=== PATIENT | male | born 1935 | race Native Hawaiian/Other Pacific Islander ===

== ENCOUNTER 2018-06-01 16:07 | Inpatient (IN) | payer OTHER ==
[2018-06-01 16:22] VITALS: BMI 27.4
--- NOTE | 2018-06-01 17:00 | PDOC ---
History of Present Illness - General Chief Complaint: Altered Mental Status Stated Complaint: FOOT SELLING/WEAKNESS Time Seen by Provider: 06/01/18 16:55 History Source: Patient Exam Limitations: Clinical Condition - History of Present Illness Initial Comments: 83 yo M w a hx of ID w/stents 2005 bypass x 3, HTN, diverticulitis was BIBEMS to the ER because he has leg swelling and was reportedly combative and aggressive. The patient was approved to have a brain MRI as an outpatient next but the reports that he has been extra combative and aggressive and has not slept for the past week so the called up the PCP and he requested to have the patient sent to the ER to have the MRI now. The patient appears to be speaking to people that are not in the room at bedside. He is rambling to himself. The patient has no complaints at bedside. He does endorse leg swelling which he states is new. He denies leg pain, fevers, chills, infections. He denies chest pain, SOB, difficulty breathing, or any other complaints. PCP: Hansel Vergara PSH: triple bypass Allergies: Penicillins Past History - Past Medical History Allergies/Adverse Reactions: Allergies Allergy/AdvReac Type Severity Reaction Status Date / Time Penicillins Allergy Verified 06/01/18 16:22 Home Medications: Ambulatory Orders Amlodipine Besylate 5 mg PO DAILY 06/01/18 Aspirin [ASA -] 81 mg PO DAILY 06/01/18 Lisinopril 20 mg PO DAILY 06/01/18 Meclizine HCl 12.5 mg PO DAILY 06/01/18 Metoprolol Succinate 50 mg PO DAILY 06/01/18 Tramadol HCl 50 mg PO DAILY 06/01/18 Cardiac Disorders: Yes (mi w/stents 2005 bypass x 3) COPD: No Dementia: No GI Disorders: Yes (diverticulits) HTN: Yes - Suicide/Smoking/Psychosocial Hx Smoking History: Current every day smoker Information on smoking cessation initiated: No Review of Systems - Review of Systems Able to Perform ROS?: Yes Comments:: CONSTITUTIONAL: Absent: fever, no chills, no fatigue EYES: Absent: visual changes ENT: Absent: ear pain, no sore throat CARDIOVASCULAR: Absent: chest pain, no palpitations RESPIRATORY: Absent: cough, no SOB GI: Absent: abdominal pain, no nausea, no vomiting, no constipation, no diarrhea GENITOURINARY: Absent: dysuria, no frequency, no hematuria MUSKULOSKELETAL: Absent: back pain, no arthralgia, no myalgia SKIN: Absent: rash NEURO: Absent: headache *Physical Exam - Vital Signs Last Vital Signs Temp Pulse Resp BP Pulse Ox 97.9 F 77 16 116/71 100 06/01/18 16:19 06/01/18 16:19 06/01/18 16:19 06/01/18 16:19 06/01/18 16:19 - Physical Exam Comments: GENERAL: Well-appearing, well-nourished. No apparent distress. HEENT: Normocephalic, atraumatic. PERRL, EOM intact. CARDIOVASCULAR: Holosystolic crescendo/decrescendo murmur in the aortic regin. Regular rate and rhythm. PULMONARY: No evidence of respiratory distress. Lungs clear to auscultation bilaterally. No wheezing, rales or rhonchi. ABDOMEN: Soft, non-distended, non-tender. EXTREMITIES: Normal ROM in all four extremities. 2 + pitting edema in both legs 2 cm above the ankle. SKIN: Warm, dry. No rash NEUROLOGICAL: No focal neurological deficits. ED Treatment Course - LABORATORY CBC & Chemistry Diagram: 06/01/18 17:45 06/01/18 17:45 Medical Decision Making - Medical Decision Making 83 yo M w a hx of ID w/stents 2005 bypass x 3, HTN, diverticulitis was BIBEMS to the ER because he has leg swelling and was reportedly combative and aggressive. The patient was approved to have a brain MRI as an outpatient next but the reports that he has been extra combative and aggressive and has not slept for the past week so the called up the PCP and he requested to have the patient sent to the ER to have the MRI now. The patient appears to be speaking to people that are not in the room at bedside. He is rambling to himself. The patient has no complaints at bedside. He does endorse leg swelling which he states is new. He denies leg pain, fevers, chills, infections. He denies chest pain, SOB, difficulty breathing, or any other complaints. VS: WNL DDx IBNLT: Heart failure, ACS/Mi, Arrhythmia, electrolyte/metabolic disturbance Plan: Labs, urine, ekg, cxr, head ct, re-assess. Patient will be admitted for altered mental status after ED workup. ED workup negative. I suspect the leg swelling is secondary to patient's amlodipine as BNP is negative. Will admit for delirium and AMS. *DC/Admit/Observation/Transfer Diagnosis at time of Disposition: Delirium, Leg swelling, Altered mental status - Discharge Dispostion Condition at time of disposition: Stable Decision to Admit order: Yes - Referrals - Patient Instructions - Post Discharge Activity
[2018-06-01 17:52] LABS: BASO % 0.6 % (0-2.0); EOS % 5.2 % (0-4.5); HEMATOCRIT 41.8 % (35.4-49); HEMOGLOBIN 14.1 GM/dL (11.7-16.9); MCH 29.8 pg (25.7-33.7); MCHC 33.8 g/dl (32.0-35.9); MEAN CELL VOLUME 88.3 fl (80-96); MEAN PLT VOLUME 7.4 fl (7.5-11.1); MONO % 9.8 % (3.8-10.2); NEUT % 64.4 % (42.8-82.8); PLATELET COUNT 250 K/MM3 (134-434); RBC 4.73 M/mm3 (4.00-5.60); RDW 13.1 % (11.9-15.9); WHITE BLOOD COUNT 7.2 K/mm3 (4.0-10.0)
[2018-06-01 18:19] LABS: ALBUMIN 3.7 g/dl (3.4-5.0); ALK PHOS 79 U/L (45-117); ANION GAP 6 MMOL/L (8-16); BILIRUBIN,TOTAL 1.2 mg/dL (0.2-1); BLOOD UREA NITROGEN 19 mg/dL (7-18); CHLORIDE 108 mmol/L (98-107); CO2 28 mmol/L (21-32); CREATININE 0.9 mg/dL (0.55-1.3); GLUCOSE,RANDOM 102 mg/dL (74-106); MAGNESIUM 2.3 mg/dL (1.8-2.4); N-TERMINAL BNP 65.6 pg/ml (5-450); POTASSIUM 3.8 mmol/L (3.5-5.1); SGOT/AST 23 U/L (15-37); SGPT/ALT 20 U/L (13-61); SODIUM 142 mmol/L (136-145); TOT PROT 7.4 g/dl (6.4-8.2)
[2018-06-01 18:23] LABS: INR 1.07 (0.83-1.09); PROTHROMBIN TIME (PATIENT) 12.6 SEC (9.7-13.0)
--- NOTE | 2018-06-01 19:10 | PDOC ---
Documentation entered by Sharda Lester SCRIBE, acting as scribe for Kanwal Munson MD. Kanwal Munson MD: This documentation has been prepared by the Trevon major Adrianna, SCRIBE, under my direction and personally reviewed by me in its entirety. I confirm that the documentation accurately reflects all work, treatment, procedures, and medical decision making performed by me. Attending Attestation - Resident Resident Name: Quinn Reece - ED Attending Attestation I have performed the following: I have examined & evaluated the patient, The case was reviewed & discussed with the resident, I agree w/resident's findings & plan, Exceptions are as noted - HPI HPI: 83 year old male, with a significant PMH of [place] (s/p stents in 2004, with triple bypass), HTN, diverticulitis, who presents to the emergency department BIBEMS for LE swelling and combative/aggressive behavior. As per patients , he was supposed to obtain outpatient brain MRI in one week, but notes he became increasingly aggressive and combative. She also notes a decrease in his sleep schedule. When patients spoke to his PCP, Dr. Vergara advised he come to the ED for MRI. At bedside, patient is speaking to people who are not present , and is rambling words to himself. He does endorse new onset LE swelling, but has no other complaints. The patient denies chest pain, shortness of breath, headache and dizziness. Denies fever, chills, nausea, vomit, diarrhea and constipation. Denies dysuria, frequency, urgency and hematuria. Allergies: Penicillins Past surgical history: Triple bypass Social history: No reported PCP: Dr. Hansel Vergara 06/01/18 18:50 06/01/18 19:33 - Physicial Exam PE: 06/01/18 19:44 awake alert dry mucous membranes. lungs clear bialterally heart rrr no mrg abd soft nt nd. nuero moves all four ext. alert oriented x 1. speech clear disoriented. - Medical Decision Making 06/01/18 19:07 83 yo male with h/o cad stents, demenita here for AMS and hallucinations, sent by pcp dr chase. per at bedside pt has been hallucinating. combative and more altered. was told to bring him to eD by pcp. on exam pt actively hallucinating. lungs clear heartrrr. leg with bilat edema. differential AMS, infeciton such as Uti, pna, electrolyte acs, chf, cva. plan ct head, cxr ua labs ekg. oswaldo require admission for delirium on dementia. tried to call pt pcp dr. chase, . office closed no answering service. 06/01/18 19:41 EXAM#: TYPE/EXAM: RESULT: [id number] CT/HEAD CT WITHOUT CONTRAST Cranial CT without contrast Clinical information given neuro/altered mental status/ headache Impression: No CT evidence of acute intracranial pathology. Reported By: Leonardo Rome MD 06/01/18 19:14 06/01/18 19:[address] head negative. awaiting urine. ekg will admit for delirium. Heart Score/ECG Review #1 General ECG Interpretation: Sinus Rhythm, Normal Rate (80), Normal Intervals, No acute ischemic changes
[2018-06-01 22:24] LABS: PH,URINE 5.5 (5.0-8.0); URINE APPEARANCE CLEAR; URINE BILIRUBIN NEGATIVE (NEGATIVE); URINE COLOR DK YELLOW; URINE GLUCOSE (UA) NEGATIVE (NEGATIVE); URINE KETONE TRACE (NEGATIVE); URINE LEUK ESTERASE NEGATIVE (NEGATIVE); URINE NITRITE NEGATIVE (NEGATIVE); URINE PROTEIN NEGATIVE (NEGATIVE)
[2018-06-01] MEDS ORDERED: HALOPERIDOL LACTATE 5 MG/ML IM ONE ×2 (22:57→23:15)
--- NOTE | 2018-06-02 00:04 | HP ---
Addendum entered and electronically signed by Pepito Guy, RESIDENT 06/02/18 06 :10: Condition 10 called overhead as pt became combative with nursing staff. Pt given Benadryl 50 mg, Ativan 2 mg and Haldol 5 mg. Original Note: <Pepito Guy - Last Filed: 06/02/18 06:08> CHIEF COMPLAINT: AMS, Hallucinations Per Spouse PCP: Dr Vergara HISTORY OF PRESENT ILLNESS: Pt is an 83 y/o gentleman with a significant past medical history of CAD s/p CABG (tipple bypass) (2002), PR w/ stents, HTN, diverticulitis who was BIBA to [facility] due to increasing altered mental status and combativeness. Per at bedside and daughter in law(discussed over phone), pt has been exhibiting a rapid mental decline for approximately 5 weeks. endorses that 5 weeks ago, pt was admitted to [facility] due to diverticulitis. Pt was discharged on Cipro and Metronidazole. Furthermore, pt has had decreased PO intake for the last 3-4 days. Additionally, pt has been hallucinating for the past few weeks, seeing " children in the house" as well as having conversations with people who aren't there. Spouse also states that pt has had increased lower extremity swelling for the past 5 days. Denies chest pain, sob, nausea/vomiting, or urinary issues. Spouse states that pt's two brothers recently this year and this has made pt depressed. PMH as above Social Hx- Former Smoker use to smoke 2 packs/day for 30 years quit 2002. Denies alcohol use. Allergic to Penicllin ER course was notable for: (1) Negative Leuk Esterase (2) Head CT Neg HOME MEDICATIONS: Home Medications Medication Instructions Recorded Amlodipine Besylate 5 mg PO DAILY 06/01/18 Aspirin [ASA -] 81 mg PO DAILY 06/01/18 Lisinopril 20 mg PO DAILY 06/01/18 Meclizine HCl 12.5 mg PO DAILY 06/01/18 Metoprolol Succinate 50 mg PO DAILY 06/01/18 Tramadol HCl 50 mg PO DAILY 06/01/18 REVIEW OF SYSTEMS Unable to obtain 2/2 AMS PHYSICAL EXAMINATION Vital Signs - 24 hr 06/01/18 16:19 Temperature 97.9 F Pulse Rate 77 Respiratory 16 Rate Blood Pressure 116/71 O2 Sat by Pulse 100 Oximetry (%) GENERAL: AAOx1 HEAD: AT/NC EYES: Left eye Corneal Clouding. EARS, NOSE, THROAT: Dry mucous membranes NECK: Supple, No JVD LUNGS: CTAB HEART: 2/6 DASHA. ABDOMEN: NDNT No HSM No guarding or rigidity LOWER EXTREMITIES: B/L lower extremity edema SKIN: No rashes or lesions appreciated Laboratory Results - last 24 hr 06/01/18 06/01/18 06/01/18 17:45 17:45 17:45 WBC 7.2 RBC 4.73 Hgb 14.1 Hct 41.8 MCV 88.3 MCH 29.8 MCHC 33.8 RDW 13.1 Plt Count 250 MPV 7.4 L Absolute Neuts (auto) 4.6 Neutrophils % 64.4 Lymphocytes % 20.0 Monocytes % 9.8 Eosinophils % 5.2 H Basophils % 0.6 Nucleated RBC % 0 PT with INR 12.60 INR 1.07 Sodium 142 Potassium 3.8 Chloride 108 H Carbon Dioxide 28 Anion Gap 6 L BUN 19 H Creatinine 0.9 Creat Clearance w eGFR 80.99 Random Glucose 102 Calcium 9.0 Magnesium 2.3 Total Bilirubin 1.2 H AST 23 ALT 20 Alkaline Phosphatase 79 Creatine Kinase 149 Troponin I < 0.02 B-Natriuretic Peptide 65.6 Total Protein 7.4 Albumin 3.7 Urine Color Urine Appearance Urine pH Ur Specific [place] Urine Protein Urine Glucose (UA) Urine Ketones Urine Blood Urine Nitrite Urine Bilirubin Urine Urobilinogen Ur Leukocyte Esterase 06/01/18 21:42 WBC RBC Hgb Hct MCV MCH MCHC RDW Plt Count MPV Absolute Neuts (auto) Neutrophils % Lymphocytes % Monocytes % Eosinophils % Basophils % Nucleated RBC % PT with INR INR Sodium Potassium Chloride Carbon Dioxide Anion Gap BUN Creatinine Creat Clearance w eGFR Random Glucose Calcium Magnesium Total Bilirubin AST ALT Alkaline Phosphatase Creatine Kinase Troponin I B-Natriuretic Peptide Total Protein Albumin Urine Color Dk yellow Urine Appearance Clear Urine pH 5.5 Ur Specific [place] 1.025 Urine Protein Negative Urine Glucose (UA) Negative Urine Ketones Trace H Urine Blood Negative Urine Nitrite Negative Urine Bilirubin Negative Urine Urobilinogen 1.0 Ur Leukocyte Esterase Negative ASSESSMENT/PLAN: Pt is an 83 y/o gentleman with a significant past medical history of CAD s/p CABG (tipple bypass) (2002), PR w/ stents, HTN, diverticulitis who was BIBA to [facility] due to increasing altered mental status and combativeness. #AMS w/ Hallucinations -Spouse denies any recent infections except Diverticulitis 5 weeks ago. Was placed on Metronidazole and Cipro. -Head CT Negative -Urinalysis negative for L.E. WBC WNL -Afebrile -Check B12, TSH, Folate, Thiamine, RPR. -Was recently placed on Risperidone past day. Will increase to 1 MG BID -Psych Consult #LE edema - Will hold home amlodipine -May increase PATIENCE-i f BP uncontrolled -Will order echo to assess EF and cardiac function -BNP WNL -Venous Duplex ordered on left leg as noticeably more swollen than right. -B/L knee xrays as pt c/o severe pain b/l. # HTN Will hold amlodipine continue lisinopril #CAD -C/w ASA 83 Daily # Chronic Dizziness -On home meclizine # Possible Urinary Retention -Can bladder scan. -Alwnrriu-bh-icu endorses dribbling in pt and inadequate voiding #Eosinophilia -Monitor; followup OP FEN LR@75cc/hr Monitor Electrolytes NPO DVT ppx HEPSQ BID given age and weight Dispo Med-Surg Visit type - Emergency Visit Emergency Visit: Yes ED Registration Date: 06/01/18 Care time: The patient presented to the Emergency Department on the above date and was hospitalized for further evaluation of their emergent condition. - New Patient This patient is new to me today: Yes Date on this admission: 06/02/18 - Critical Care Critical Care patient: No <Marc Carrera - Last Filed: 06/15/18 01:03> Seen and examined; agree with resident note aside from what is supplemented in my own documentation. Present for all essential parts and verified all vital aspects of history and exam.
--- NOTE | 2018-06-02 00:34 | PN ---
Teaching Attending Note Name of Resident: Pepito Guy ATTENDING PHYSICIAN STATEMENT I saw and evaluated the patient. I reviewed the resident's note and discussed the case with the resident. I agree with the resident's findings and plan as documented. SUBJECTIVE: Seen and examined; please refer to resident note for further historical information. Briefly, this is an 83 y/o male presenting to the hospital with AMS. He has been increasingly combative at home for the past month (family states since discharged from [facility] >5 wks ago) and has been having aggression, hallucinations, and confusion. He has had some intermittent urinary retention and dribbling. His PCP started him on risperidone 0.5 BID at home several days ago but the symptoms continued to persist so he was brought in to the ER. His is bedside and she states she cannot take care of him anymore so she brought him in. He has not been eating or sleeping well. He cannot provide an accurate history and is confused. notes some pedal edema but no SOB, etc. No s/s CHF and he is on amlodipine. Did have some falls at home; no evidence of trauma but did mention knee pain (XR pending). PCP had him scheduled for MRI next week. 10 sys ROS done and negative aside from HPI PMH, PSH, FH, SH reviewed Home Medications Medication Instructions Recorded Amlodipine Besylate 5 mg PO DAILY 06/01/18 Aspirin [ASA -] 81 mg PO DAILY 06/01/18 Lisinopril 20 mg PO DAILY 06/01/18 Meclizine HCl 12.5 mg PO DAILY 06/01/18 Metoprolol Succinate 50 mg PO DAILY 06/01/18 Tramadol HCl 50 mg PO DAILY 06/01/18 Risperidone 0.5 BID 06/02/18 OBJECTIVE: VS, labs, imaging reviewed NAD, AAO, resting in bed comfortably, confused. R-cataract with near opaque appearance, NC AT EOMI RRR s1/2 no mgr Responds and follows directions but confused, AAOx1 NT ND +BS; no suprapubic tenderness CN2-12 wnl, no fnd, moves all 4 extremities, sensorium appears intact CT head negative EKG reviewed ASSESSMENT AND PLAN: Patient presents for increasing delirium; cannot take care of him anymore at home. 1) AMS with dementia, hallucinations, etc. -This has been a slow decline over weeks to months and doesn't appear acute; for social issues will consult social work and case management. He will likely need placement. -Check B12, TSH, Folate, Thiamine, RPR. -Neuro checks, seizure precautions -Increase risperidone to 1 BID and consult psych for titration. Monitor QTc. -Ensure no urinary retention; hold tramadol. -Consider MRI that was planned for OP while inpatient 2) LE edema -Check nonurgent echo, BNP negative. Holding amlodipine; if BP high can titrate PATIENCE up 3) HTN -Hold amlodipine continue lisinopril 4) CAD s/p PCI, CABG -Asx; continue home medications 5) Chronic Dizziness -On home meclizine 6) Knee Pain with falls -Negative head CT; films of knee pending -PRN APAP 7) Concern of urinary retention -Can bladder scan 8) Eosinophilia -Monitor; followup OP 9) Elevated bili -Very mild; trend CBC and fractionate. Consider medication causes. If persists or worsens consider RUQ imaging.
[2018-06-02] MEDS ORDERED: risperiDONE 0.5 MG TABLET (FP) ONE (00:35)
[2018-06-02] MEDS: LACTATED RINGERS SOLUTION 1,000 ML/1,000 ML INFUS.BAG IV SCH ×2 (00:43→18:09)
[2018-06-02] MEDS: risperiDONE 1 MG TABLET (FP) PO SCH ×3 (00:43→13:27)
[2018-06-02] MEDS ORDERED: ACETAMINOPHEN 325 MG TABLET (FP) PO ONE (01:22)
[2018-06-02] MEDS ORDERED: HALOPERIDOL LACTATE 5 MG/ML IM ONE (03:23)
[2018-06-02] MEDS ORDERED: LORazepam 2 MG/ML SDV VIAL IVPUSH ONE (03:23)
[2018-06-02] MEDS ORDERED: PNEUMOC 13-VAL CONJ-DIP CRM/PF 0.5 ML DISP.SYRIN IM ONE (04:43)
[2018-06-02] MEDS ORDERED: PNEUMOCOCCAL 23 VACCINE 0.5 ML VIAL IM ONE (06:15)
[2018-06-02 07:08] LABS: BASO % 0.8 % (0-2.0); EOS % 4.5 % (0-4.5); HEMATOCRIT 39.7 % (35.4-49); HEMOGLOBIN 13.5 GM/dL (11.7-16.9); LYMPH % 17.8 % (8-40); MCH 29.4 pg (25.7-33.7); MCHC 34.1 g/dl (32.0-35.9); MEAN CELL VOLUME 86.3 fl (80-96); MEAN PLT VOLUME 7.6 fl (7.5-11.1); MONO % 8.9 % (3.8-10.2); PLATELET COUNT 239 K/MM3 (134-434); RDW 13.3 % (11.9-15.9); WHITE BLOOD COUNT 7.5 K/mm3 (4.0-10.0)
[2018-06-02 07:28] LABS: INR 1.08 (0.83-1.09); PROTHROMBIN TIME (PATIENT) 12.7 SEC (9.7-13.0)
[2018-06-02 07:31] LABS: ACTIVATED PTT 34.6 SECONDS (25.2-36.5)
[2018-06-02] MEDS: HEPARIN NA (PORCINE) 5,000 UNITS/ML 1ML VIAL SQ SCH ×2 (10:25→23:00)
--- NOTE | 2018-06-02 10:46 | EKG ---
Test Reason : Blood Pressure : / mmHG Vent. Rate : 080 BPM Atrial Rate : 080 BPM P-R Int : 174 ms QRS Dur : 086 ms QT Int : 382 ms P-R-T Axes : 060 -58 044 degrees QTc Int : 440 ms NORMAL SINUS RHYTHM LEFT AXIS DEVIATION NONSPECIFIC T WAVE ABNORMALITY ABNORMAL ECG NO PREVIOUS ECGS AVAILABLE Confirmed by GINNA WOLFE MD ([id number]) on 06/02/2018 10:46:09 AM Referred By: Confirmed By:GINNA WOLFE MD
[2018-06-02 11:17] LABS: BILIRUBIN,DIRECT 0.3 mg/dL (0.0-0.2)
[2018-06-02] MEDS: ASPIRIN 81 MG CHEWABLE TABLETS PO SCH ×2 (11:26→13:27)
[2018-06-02] MEDS: MECLIZINE HCL 12.5 MG TABLET PO SCH ×2 (11:26→13:27)
[2018-06-02] MEDS: LISINOPRIL 20 MG TABLET (FP) PO SCH ×2 (11:26→13:27)
[2018-06-02 11:55] LABS: ALBUMIN 3.3 g/dl (3.4-5.0); ALK PHOS 75 U/L (45-117); ANION GAP 10 MMOL/L (8-16); BILIRUBIN,TOTAL 1.6 mg/dL (0.2-1); BLOOD UREA NITROGEN 13 mg/dL (7-18); CALCIUM 8.6 mg/dL (8.5-10.1); CHLORIDE 109 mmol/L (98-107); CO2 23 mmol/L (21-32); CREATININE 0.7 mg/dL (0.55-1.3); GLUCOSE,RANDOM 103 mg/dL (74-106); MAGNESIUM 1.8 mg/dL (1.8-2.4); PHOSPHOROUS 1.7 mg/dL (2.5-4.9); POTASSIUM 3.4 mmol/L (3.5-5.1); SGOT/AST 32 U/L (15-37); SGPT/ALT 18 U/L (13-61); SODIUM 143 mmol/L (136-145); TOT PROT 6.8 g/dl (6.4-8.2)
[2018-06-02] MEDS ORDERED: POTASSIUM CHLORIDE TABS 20 MEQ TABLET.ER (FP) PO ONE (12:20)
[2018-06-02] MEDS ORDERED: PT OWN MED DRAWER 7, Y5N ONE ×3 (13:22→21:52)
--- NOTE | 2018-06-02 15:34 | CON.PSY ---
Psychiatry Consult Chief Complaint: 83 manuel old male with ahistory of ? Dementia ALZ vs Fronto temporal admitted wuith acute onset of Visual hallucinations and aggressive behaviour. Patient was given Risperidal and SEroquel by PMD. Spoke to who reports this all started about a week ago. Patient has no history of Psychiatric illness. Symptoms: reports: Aggressivity, Amnesic Episodes, Hallucinations - Previous Psychiatric Treatment Outpatient: None Inpatient: None - Previous Substance Abuse Treatment Outpatient: None Inpatient: None - Current Medications Current Medications: Active Medications Aspirin (Asa -) 81 mg PO DAILY [facility] Last Admin: 06/02/18 13:27 Dose: 81 mg Heparin Sodium (Porcine) (Heparin -) 5,000 unit SQ BID [facility] Last Admin: 06/02/18 10:25 Dose: 5,000 unit Lactated Ringer's (Lactated Ringers Solution) 1,000 ml in 1,000 mls @ 75 mls/ hr IV ASDIR [facility] Last Admin: 06/02/18 00:43 Dose: 75 mls/hr Lisinopril (Prinivil) 20 mg PO DAILY [facility] Last Admin: 06/02/18 13:27 Dose: 20 mg Meclizine HCl (Antivert -) 12.5 mg PO DAILY [facility] Last Admin: 06/02/18 13:27 Dose: 12.5 mg Metoprolol Succinate (Toprol Xl -) 50 mg PO DAILY [facility] Last Admin: 06/02/18 13:27 Dose: 50 mg Olanzapine (Zyprexa -) 10 mg PO BID [facility] - Allergies Allergies: Allergies Allergy/AdvReac Type Severity Reaction Status Date / Time Penicillins Allergy Verified 06/01/18 16:22 - Current Living Status Usual Living Arrangement: With Spouse - Current Mental Status Evaluation Appearance: Disheveled Attitude: Belligerent - Affect Affect: Constrictive Appropriateness: Not Appropriate - Mood Mood: Irritable - Speech/Language Expressive: Delayed - Psychomotor Activity Psychomotor Activity: Hyperactive - Thought Process Thought Process: Loosening of Associations - Thought Content Hallucinations: Present Type: Visual Delusions: Absent - Self Perception Self Perception: Depersonalization - Cognition Attention: Diminished Memory, Immediate Recall: Impaired Memory, Short Term: 0/3 Memory, Remote with Promptin/3 - Concentration Serial Sevens Intact: No Simple Calculations Intact: No - Abstraction Proverb Interpretation: Intact, Impaired Judgement: Severely Impaired - Insight Insight: Impaired - Impulse Control Impulse Control: Severly Impaired - Suicidal Ideation Suicidal Ideation: No - Homicidal Ideation Homicidal Ideation: No Assessment/Plan 1) Neuro consult. 2) d/c risperidal. 3) Zyprexa 10 mg po bid for aggression and hallucinations.
--- NOTE | 2018-06-02 16:58 | PN ---
Physical Exam: SUBJECTIVE: Patient seen and examined at bedside this morning. Condition 10 called earlier this morning as patient was becoming violent and combative to nursing staff. Patient was given Haldol, Ativan and Benadryl. Patient remained lethargic, and mumbling to himself. OBJECTIVE: Vital Signs Temperature 98 F 06/02/18 14:32 Pulse Rate 57 L 06/02/18 14:32 Respiratory Rate 20 06/02/18 14:32 Blood Pressure 115/59 L 06/02/18 14:32 O2 Sat by Pulse Oximetry (%) 98 06/02/18 09:00 GENERAL: Patient is lethargic, eyes remain closed, mumbling incomprehensibly, not following commands. LUNGS: Breath sounds equal, clear to auscultation bilaterally. HEART: Regular rate and rhythm, S1, S2 without murmur, rub or gallop. ABDOMEN: Soft, nontender, nondistended, normoactive bowel sounds. EXTREMITIES: 2+ pulses, warm, well-perfused, no edema. NEUROLOGICAL: Patient is lethargic, eyes remain closed, mumbling incomprehensibly, unresponsive to voice, not following commands. SKIN: Warm, dry, normal turgor, no rashes or lesions noted Laboratory Results - last 24 hr 06/01/18 06/01/18 06/01/18 17:45 17:45 17:45 WBC 7.2 RBC 4.73 Hgb 14.1 Hct 41.8 MCV 88.3 MCH 29.8 MCHC 33.8 RDW 13.1 Plt Count 250 MPV 7.4 L Absolute Neuts (auto) 4.6 Neutrophils % 64.4 Lymphocytes % 20.0 Monocytes % 9.8 Eosinophils % 5.2 H Basophils % 0.6 Nucleated RBC % 0 ESR PT with INR 12.60 INR 1.07 PTT (Actin FS) Sodium 142 Potassium 3.8 Chloride 108 H Carbon Dioxide 28 Anion Gap 6 L BUN 19 H Creatinine 0.9 Creat Clearance w eGFR 80.99 Random Glucose 102 Calcium 9.0 Phosphorus Magnesium 2.3 Total Bilirubin 1.2 H Direct Bilirubin AST 23 ALT 20 Alkaline Phosphatase 79 Creatine Kinase 149 Troponin I < 0.02 C-Reactive Protein B-Natriuretic Peptide 65.6 Total Protein 7.4 Albumin 3.7 Vitamin B12 Serum Folate TSH Urine Color Urine Appearance Urine pH Ur Specific [place] Urine Protein Urine Glucose (UA) Urine Ketones Urine Blood Urine Nitrite Urine Bilirubin Urine Urobilinogen Ur Leukocyte Esterase RPR Titer 06/01/18 06/02/18 06/02/18 21:42 01:36 06:00 WBC 7.5 RBC 4.60 Hgb 13.5 Hct 39.7 MCV 86.3 MCH 29.4 MCHC 34.1 RDW 13.3 Plt Count 239 MPV 7.6 Absolute Neuts (auto) 5.1 Neutrophils % 68.0 Lymphocytes % 17.8 Monocytes % 8.9 Eosinophils % 4.5 Basophils % 0.8 Nucleated RBC % 0 ESR 13 PT with INR INR PTT (Actin FS) Sodium Potassium Chloride Carbon Dioxide Anion Gap BUN Creatinine Creat Clearance w eGFR Random Glucose Calcium Phosphorus Magnesium Total Bilirubin Direct Bilirubin AST ALT Alkaline Phosphatase Creatine Kinase Troponin I C-Reactive Protein B-Natriuretic Peptide Total Protein Albumin Vitamin B12 Serum Folate TSH Urine Color Dk yellow Urine Appearance Clear Urine pH 5.5 Ur Specific [place] 1.025 Urine Protein Negative Urine Glucose (UA) Negative Urine Ketones Trace H Urine Blood Negative Urine Nitrite Negative Urine Bilirubin Negative Urine Urobilinogen 1.0 Ur Leukocyte Esterase Negative RPR Titer 06/02/18 06/02/18 06/02/18 06:00 06:00 06:00 WBC RBC Hgb Hct MCV MCH MCHC RDW Plt Count MPV Absolute Neuts (auto) Neutrophils % Lymphocytes % Monocytes % Eosinophils % Basophils % Nucleated RBC % ESR PT with INR 12.70 INR 1.08 PTT (Actin FS) 34.6 Sodium 143 Potassium 3.4 L Chloride 109 H Carbon Dioxide 23 Anion Gap 10 BUN 13 Creatinine 0.7 Creat Clearance w eGFR 108.24 Random Glucose 103 Calcium 8.6 Phosphorus 1.7 L Magnesium 1.8 Total Bilirubin 1.6 H Direct Bilirubin 0.3 H AST 32 ALT 18 Alkaline Phosphatase 75 Creatine Kinase Troponin I C-Reactive Protein 0.4 H B-Natriuretic Peptide Total Protein 6.8 Albumin 3.3 L Vitamin B12 481 Serum Folate 19 H TSH 0.56 Urine Color Urine Appearance Urine pH Ur Specific [place] Urine Protein Urine Glucose (UA) Urine Ketones Urine Blood Urine Nitrite Urine Bilirubin Urine Urobilinogen Ur Leukocyte Esterase RPR Titer 06/02/18 06:00 WBC RBC Hgb Hct MCV MCH MCHC RDW Plt Count MPV Absolute Neuts (auto) Neutrophils % Lymphocytes % Monocytes % Eosinophils % Basophils % Nucleated RBC % ESR PT with INR INR PTT (Actin FS) Sodium Potassium Chloride Carbon Dioxide Anion Gap BUN Creatinine Creat Clearance w eGFR Random Glucose Calcium Phosphorus Magnesium Total Bilirubin Direct Bilirubin AST ALT Alkaline Phosphatase Creatine Kinase Troponin I C-Reactive Protein B-Natriuretic Peptide Total Protein Albumin Vitamin B12 Serum Folate TSH Urine Color Urine Appearance Urine pH Ur Specific [place] Urine Protein Urine Glucose (UA) Urine Ketones Urine Blood Urine Nitrite Urine Bilirubin Urine Urobilinogen Ur Leukocyte Esterase RPR Titer Nonreactive Active Medications Generic Name Dose Route Start Last Admin Trade Name Pedrito PRN Reason Stop Dose Admin Aspirin 81 mg 06/02/18 10:00 06/02/18 13:27 Asa - PO 81 mg DAILY THIAGO Administration Heparin Sodium (Porcine) 5,000 unit 06/02/18 10:00 06/02/18 10:25 Heparin - SQ 5,000 unit BID THIAGO Administration Lactated Ringer's 1,000 ml in 1,000 mls @ 75 mls/hr 06/02/18 00:30 06/02/18 00:43 Lactated Ringers Solution IV 75 mls/hr ASDIR THIAGO Administration Lisinopril 20 mg 06/02/18 10:00 06/02/18 13:27 Prinivil PO 20 mg DAILY THIAGO Administration Meclizine HCl 12.5 mg 06/02/18 10:00 06/02/18 13:27 Antivert - PO 12.5 mg DAILY THIAGO Administration Metoprolol Succinate 50 mg 06/02/18 10:00 06/02/18 13:27 Toprol Xl - PO 50 mg DAILY THIAGO Administration Olanzapine 10 mg 06/02/18 22:00 Zyprexa - PO BID THIAGO ASSESSMENT/PLAN: Patient is an 83 year old male with past medical history of CAD s/p CABG (2002) , [place] with stents, HTN, diverticulitis, who was brought in by due to worsening combativeness, confusion and hallucinations that started 1 week ago. #Altered mental status -Head CT showed no acute intracranial pathology -MRI of the brain ordered -Neurology (Dr. Ladd) consulted. -Psychiatry (Dr. Mao) consulted. Recommendations appreciated -Discontinue Risperidal -Zyprexa 10mg PO BID for aggression and hallucinations. #LE edema: resolved -Amlodipine held. BP currently controlled -LE US negative for DVT -Knee xray: degenerative changes, no acute process #HTN -Continue Lisinopril 20mg daily -Amlodipine on hold #CAD -Continue ASA 81 mg daily #BPPV -Continue home Meclizine #FEN -IV LR @75cc/hr -Hypokalemia, repleted -Routine bmp monitoring -Sodium controlled diet #Prophylaxis -Heparin 5000units sq BID #Disposition -full code - feels unsafe with at home, and would want placement. Visit type - Emergency Visit Emergency Visit: Yes ED Registration Date: 06/01/18 Care time: The patient presented to the Emergency Department on the above date and was hospitalized for further evaluation of their emergent condition. - New Patient This patient is new to me today: Yes Date on this admission: 06/02/18 - Critical Care Critical Care patient: No
--- NOTE | 2018-06-02 18:46 | PN ---
Teaching Attending Note Name of Resident: Gina De La Cruz ATTENDING PHYSICIAN STATEMENT I saw and evaluated the patient. I reviewed the resident's note and discussed the case with the resident. I agree with the resident's findings and plan as documented. SUBJECTIVE: Patient awake, confused. OBJECTIVE: Vital Signs Period Temp Pulse Resp BP Sys/Schneider Pulse Ox Last 24 Hr 98 F-98.4 F 57-78 20-20 115-134/59-76 98 HEART: S1S2, RRR LUNGS: Clear ABDOMEN: Soft, non-distended, normal BS EXTREMITIES: Trace edema Laboratory Results - last 24 hr 06/01/18 06/02/18 06/02/18 21:42 01:36 06:00 WBC 7.5 RBC 4.60 Hgb 13.5 Hct 39.7 MCV 86.3 MCH 29.4 MCHC 34.1 RDW 13.3 Plt Count 239 MPV 7.6 Absolute Neuts (auto) 5.1 Neutrophils % 68.0 Lymphocytes % 17.8 Monocytes % 8.9 Eosinophils % 4.5 Basophils % 0.8 Nucleated RBC % 0 ESR 13 PT with INR INR PTT (Actin FS) Sodium Potassium Chloride Carbon Dioxide Anion Gap BUN Creatinine Creat Clearance w eGFR Random Glucose Calcium Phosphorus Magnesium Total Bilirubin Direct Bilirubin AST ALT Alkaline Phosphatase C-Reactive Protein Total Protein Albumin Vitamin B12 Serum Folate TSH Urine Color Dk yellow Urine Appearance Clear Urine pH 5.5 Ur Specific [place] 1.025 Urine Protein Negative Urine Glucose (UA) Negative Urine Ketones Trace H Urine Blood Negative Urine Nitrite Negative Urine Bilirubin Negative Urine Urobilinogen 1.0 Ur Leukocyte Esterase Negative RPR Titer 06/02/18 06/02/18 06/02/18 06:00 06:00 06:00 WBC RBC Hgb Hct MCV MCH MCHC RDW Plt Count MPV Absolute Neuts (auto) Neutrophils % Lymphocytes % Monocytes % Eosinophils % Basophils % Nucleated RBC % ESR PT with INR 12.70 INR 1.08 PTT (Actin FS) 34.6 Sodium 143 Potassium 3.4 L Chloride 109 H Carbon Dioxide 23 Anion Gap 10 BUN 13 Creatinine 0.7 Creat Clearance w eGFR 108.24 Random Glucose 103 Calcium 8.6 Phosphorus 1.7 L Magnesium 1.8 Total Bilirubin 1.6 H Direct Bilirubin 0.3 H AST 32 ALT 18 Alkaline Phosphatase 75 C-Reactive Protein 0.4 H Total Protein 6.8 Albumin 3.3 L Vitamin B12 481 Serum Folate 19 H TSH 0.56 Urine Color Urine Appearance Urine pH Ur Specific [place] Urine Protein Urine Glucose (UA) Urine Ketones Urine Blood Urine Nitrite Urine Bilirubin Urine Urobilinogen Ur Leukocyte Esterase RPR Titer 06/02/18 06:00 WBC RBC Hgb Hct MCV MCH MCHC RDW Plt Count MPV Absolute Neuts (auto) Neutrophils % Lymphocytes % Monocytes % Eosinophils % Basophils % Nucleated RBC % ESR PT with INR INR PTT (Actin FS) Sodium Potassium Chloride Carbon Dioxide Anion Gap BUN Creatinine Creat Clearance w eGFR Random Glucose Calcium Phosphorus Magnesium Total Bilirubin Direct Bilirubin AST ALT Alkaline Phosphatase C-Reactive Protein Total Protein Albumin Vitamin B12 Serum Folate TSH Urine Color Urine Appearance Urine pH Ur Specific [place] Urine Protein Urine Glucose (UA) Urine Ketones Urine Blood Urine Nitrite Urine Bilirubin Urine Urobilinogen Ur Leukocyte Esterase RPR Titer Nonreactive Current Medications Generic Name Dose Route Start Last Admin Trade Name Freq PRN Reason Stop Dose Admin Aspirin 81 mg 06/02/18 10:00 06/02/18 13:27 Asa - PO 81 mg DAILY THIAGO Administration Heparin Sodium (Porcine) 5,000 unit 06/02/18 10:00 06/02/18 10:25 Heparin - SQ 5,000 unit BID THIAGO Administration Lactated Ringer's 1,000 ml in 1,000 mls @ 75 mls/hr 06/02/18 00:30 06/02/18 18:09 Lactated Ringers Solution IV 75 mls/hr ASDIR THIAGO Administration Lisinopril 20 mg 06/02/18 10:00 06/02/18 13:27 Prinivil PO 20 mg DAILY THIAGO Administration Meclizine HCl 12.5 mg 06/02/18 10:00 06/02/18 13:27 Antivert - PO 12.5 mg DAILY THIAGO Administration Metoprolol Succinate 50 mg 06/02/18 10:00 06/02/18 13:27 Toprol Xl - PO 50 mg DAILY THIAGO Administration Olanzapine 10 mg 06/02/18 22:00 Zyprexa - PO BID THIAGO ASSESSMENT AND PLAN: This is an 83 year old man with a history of CAD, MS, CABG, stents, HTN, dizziness who presented to the ED with confusion, hallucinations, and combativeness. 1. Acute metabolic encephalopathy vs dementia - No obvious infection - ? effect of Risperdal - No significant electrolyte abnormalities - B12, folate, TSH normal - RPR negative - Thiamine pending - Psychiatry consult appreciated - Risperdal discontinued and Zyprexa started - Neurology consult 2. HTN - Continue lisinopril, Toprol XL - Norvasc held secondary to peripheral edema 3. Leg edema - Norvasc held - No evidence of DVT - Echo ordered 4. CAD, history of MS, CABG, stents - Continue aspirin, Toprol XL 5. Chronic dizziness - Continue meclizine 6. Eosinophilia - Improved 7. No evidence of urinary retention - Continue to monitor urine output
[2018-06-02] MEDS: OLANZapine 10 MG TABLET PO SCH (22:16)
[2018-06-03] MEDS: LACTATED RINGERS SOLUTION 1,000 ML/1,000 ML INFUS.BAG IV SCH ×2 (06:39→22:36)
[2018-06-03 07:14] LABS: HEMATOCRIT 42.2 % (35.4-49); HEMOGLOBIN 14.5 GM/dL (11.7-16.9); MCH 30.1 pg (25.7-33.7); MCHC 34.5 g/dl (32.0-35.9); MEAN CELL VOLUME 87.3 fl (80-96); MEAN PLT VOLUME 7.7 fl (7.5-11.1); PLATELET COUNT 246 K/MM3 (134-434); RBC 4.83 M/mm3 (4.00-5.60); WHITE BLOOD COUNT 7.4 K/mm3 (4.0-10.0)
[2018-06-03 07:42] LABS: ANION GAP 7 MMOL/L (8-16); BLOOD UREA NITROGEN 9 mg/dL (7-18); CALCIUM 8.6 mg/dL (8.5-10.1); CHLORIDE 108 mmol/L (98-107); CO2 25 mmol/L (21-32); CREATININE 0.6 mg/dL (0.55-1.3); GLUCOSE,RANDOM 96 mg/dL (74-106); PHOSPHOROUS 2.2 mg/dL (2.5-4.9); POTASSIUM 4.1 mmol/L (3.5-5.1); SODIUM 141 mmol/L (136-145)
[2018-06-03 08:37] LABS: ALBUMIN 3.3 g/dl (3.4-5.0); ALK PHOS 78 U/L (45-117); BILIRUBIN,DIRECT 0.4 mg/dL (0.0-0.2); BILIRUBIN,TOTAL 1.6 mg/dL (0.2-1); SGOT/AST 40 U/L (15-37); SGPT/ALT 21 U/L (13-61); TOT PROT 6.8 g/dl (6.4-8.2)
[2018-06-03] MEDS ORDERED: PT OWN MED DRAWER 7, Y5N ONE (09:48)
[2018-06-03] MEDS: OLANZapine 10 MG TABLET PO SCH ×2 (10:15→22:35)
[2018-06-03] MEDS: MECLIZINE HCL 12.5 MG TABLET PO SCH (10:15)
[2018-06-03] MEDS: ASPIRIN 81 MG CHEWABLE TABLETS PO SCH (10:15)
[2018-06-03] MEDS: HEPARIN NA (PORCINE) 5,000 UNITS/ML 1ML VIAL SQ SCH (10:15)
[2018-06-03] MEDS: LISINOPRIL 20 MG TABLET (FP) PO SCH (10:15)
--- NOTE | 2018-06-03 12:42 | CONSULT ---
Consult - text type - Consultation Consultation Note: Neurology CHIEF COMPLAINT: AMS, Hallucinations Per Spouse PCP: Dr Vergara HISTORY OF PRESENT ILLNESS: Pt is an 83 y/o gentleman with a significant past medical history of CAD s/p CABG (tipple bypass) (2002), [place] w/ stents, HTN, diverticulitis who was BIBA to [facility] due to increasing altered mental status and combativeness. Per at bedside and daughter in law(discussed over phone), pt has been exhibiting a rapid mental decline for approximately 5 weeks. endorses that 5 weeks ago, pt was admitted to [facility] due to diverticulitis. Pt was discharged on Cipro and Metronidazole. Furthermore, pt has had decreased PO intake for the last 3-4 days. Additionally, pt has been hallucinating for the past few weeks, seeing " children in the house" as well as having conversations with people who aren't there. Spouse also states that pt has had increased lower extremity swelling for the past 5 days. Denies chest pain, sob, nausea/vomiting, or urinary issues. Spouse states that pt's two brothers recently this year and this has made pt depressed. Patient admitted for further evaluation and CT head completed, reviewed and discussed with , no acute changes. He is more awake and interactive this AM, though still confused, sachi vest in place. Getting IV fluids, not combative but not following commands either. Psych note reviewed and respiradol d/mariya, patient put on Zyprexa. HOME MEDICATIONS: Home Medications Medication Instructions Recorded Amlodipine Besylate 5 mg PO DAILY 06/01/18 Aspirin [ASA -] 81 mg PO DAILY 06/01/18 Lisinopril 20 mg PO DAILY 06/01/18 Meclizine HCl 12.5 mg PO DAILY 06/01/18 Metoprolol Succinate 50 mg PO DAILY 06/01/18 Tramadol HCl 50 mg PO DAILY 06/01/18 REVIEW OF SYSTEMS Unable to obtain 2/2 AMS PHYSICAL EXAMINATION Vital Signs Period Temp Pulse Resp BP Sys/Schneider Pulse Ox Last 24 Hr 98 F-99.1 F 57-78 20-24 115-138/57-80 98 GENERAL: AAOx1 HEAD: AT/NC EYES: Left eye Corneal Clouding. EARS, NOSE, THROAT: Dry mucous membranes NECK: Supple, No JVD LUNGS: CTAB HEART: 2/6 DASHA. ABDOMEN: NDNT No HSM No guarding or rigidity LOWER EXTREMITIES: B/L lower extremity edema SKIN: No rashes or lesions appreciated \\ Neuro: CN intact, moves all extremities, sensory intact Laboratory Results - last 24 hr 06/01/18 06/01/18 06/01/18 17:45 17:45 17:45 WBC 7.2 RBC 4.73 Hgb 14.1 Hct 41.8 MCV 88.3 MCH 29.8 MCHC 33.8 RDW 13.1 Plt Count 250 MPV 7.4 L Absolute Neuts (auto) 4.6 Neutrophils % 64.4 Lymphocytes % 20.0 Monocytes % 9.8 Eosinophils % 5.2 H Basophils % 0.6 Nucleated RBC % 0 PT with INR 12.60 INR 1.07 Sodium 142 Potassium 3.8 Chloride 108 H Carbon Dioxide 28 Anion Gap 6 L BUN 19 H Creatinine 0.9 Creat Clearance w eGFR 80.99 Random Glucose 102 Calcium 9.0 Magnesium 2.3 Total Bilirubin 1.2 H AST 23 ALT 20 Alkaline Phosphatase 79 Creatine Kinase 149 Troponin I < 0.02 B-Natriuretic Peptide 65.6 Total Protein 7.4 Albumin 3.7 Urine Color Urine Appearance Urine pH Ur Specific [place] Urine Protein Urine Glucose (UA) Urine Ketones Urine Blood Urine Nitrite Urine Bilirubin Urine Urobilinogen Ur Leukocyte Esterase 06/01/18 21:42 WBC RBC Hgb Hct MCV MCH MCHC RDW Plt Count MPV Absolute Neuts (auto) Neutrophils % Lymphocytes % Monocytes % Eosinophils % Basophils % Nucleated RBC % PT with INR INR Sodium Potassium Chloride Carbon Dioxide Anion Gap BUN Creatinine Creat Clearance w eGFR Random Glucose Calcium Magnesium Total Bilirubin AST ALT Alkaline Phosphatase Creatine Kinase Troponin I B-Natriuretic Peptide Total Protein Albumin Urine Color Dk yellow Urine Appearance Clear Urine pH 5.5 Ur Specific [place] 1.025 Urine Protein Negative Urine Glucose (UA) Negative Urine Ketones Trace H Urine Blood Negative Urine Nitrite Negative Urine Bilirubin Negative Urine Urobilinogen 1.0 Ur Leukocyte Esterase Negative ASSESSMENT/PLAN: Pt is an 83 y/o gentleman with a significant past medical history of CAD s/p CABG (tipple bypass) (2002), [place] w/ stents, HTN, diverticulitis who was BIBA to [facility] due to increasing altered mental status and combativeness. Per at bedside and daughter in law(discussed over phone), pt has been exhibiting a rapid mental decline for approximately 5 weeks. endorses that 5 weeks ago, pt was admitted to [facility] due to diverticulitis. Pt was discharged on Cipro and Metronidazole. Furthermore, pt has had decreased PO intake for the last 3-4 days. Additionally, pt has been hallucinating for the past few weeks, seeing " children in the house" as well as having conversations with people who aren't there. Spouse also states that pt has had increased lower extremity swelling for the past 5 days. Denies chest pain, sob, nausea/vomiting, or urinary issues. Spouse states that pt's two brothers recently this year and this has made pt depressed. Patient admitted for further evaluation and CT head completed, reviewed and discussed with , no acute changes. He is more awake and interactive this AM, though still confused, sachi vest in place. Getting IV fluids, not combative but not following commands either. Psych note reviewed and respiradol d/mariya, patient put on Zyprexa. UA negative, infectious work up not been revealing. Possibly psych process given recent stressor and partial response to Zyprexa noted. CT head negative, MRI not likely to show acute changes as patient without focal deficits. Reorientation as able. Continue hydration. Monitor BP, maintain normotensive range.
--- NOTE | 2018-06-03 14:35 | PN ---
Physical Exam: SUBJECTIVE: Patient seen and examined at bedside this morning. Patient remained confused and agitated overnight. Zyprexa was given. This morning, patient would still mumble incomprehensibly at times, but is able to answer questions appropriately when asked. OBJECTIVE: Vital Signs Temperature 98.0 F 06/03/18 09:27 Pulse Rate 78 06/03/18 06:00 Respiratory Rate 24 H 06/03/18 09:27 Blood Pressure 138/73 06/03/18 09:27 O2 Sat by Pulse Oximetry (%) 98 06/02/18 21:00 GENERAL: The patient is somnolent but arousable, oriented to person, in no acute distress. HEAD: Normal with no signs of trauma. EYES: sclera anicteric, conjunctiva clear. 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 LUNGS: Breath sounds equal, clear to auscultation bilaterally. HEART: Regular rate and rhythm, S1, S2 +holosytolic murmur ABDOMEN: Soft, nontender, nondistended, normoactive bowel sounds. EXTREMITIES: 2+ pulses, warm, well-perfused, no edema. NEUROLOGICAL:Patient is somnolent, but arousable to voice, opens eyes when called, can answer questions and but does not follow commands PSYCH: Normal mood, normal affect. SKIN: Warm, dry, normal turgor, no rashes or lesions noted Laboratory Results - last 24 hr 06/03/18 06/03/18 06:30 06:30 WBC 7.4 RBC 4.83 Hgb 14.5 Hct 42.2 MCV 87.3 MCH 30.1 MCHC 34.5 RDW 13.0 Plt Count 246 MPV 7.7 Sodium 141 Potassium 4.1 Chloride 108 H Carbon Dioxide 25 Anion Gap 7 L BUN 9 Creatinine 0.6 Creat Clearance w eGFR 129.31 Random Glucose 96 Calcium 8.6 Phosphorus 2.2 L Magnesium 2.0 Total Bilirubin 1.6 H Direct Bilirubin 0.4 H AST 40 H ALT 21 Alkaline Phosphatase 78 Total Protein 6.8 Albumin 3.3 L Active Medications Generic Name Dose Route Start Last Admin Trade Name Freq PRN Reason Stop Dose Admin Aspirin 81 mg 06/02/18 10:00 06/03/18 10:15 Asa - PO 81 mg DAILY THIAGO Administration Heparin Sodium (Porcine) 5,000 unit 06/02/18 10:00 06/03/18 10:15 Heparin - SQ Not Given BID THIAGO Lactated Ringer's 1,000 ml in 1,000 mls @ 75 mls/hr 06/02/18 00:30 06/03/18 06:39 Lactated Ringers Solution IV 75 mls/hr ASDIR THIAGO Administration Lisinopril 20 mg 06/02/18 10:00 06/03/18 10:15 Prinivil PO 20 mg DAILY THIAGO Administration Meclizine HCl 12.5 mg 06/02/18 10:00 06/03/18 10:15 Antivert - PO 12.5 mg DAILY THIAGO Administration Metoprolol Succinate 50 mg 06/02/18 10:00 06/03/18 10:14 Toprol Xl - PO 50 mg DAILY THIAGO Administration Olanzapine 10 mg 06/02/18 22:00 06/03/18 10:15 Zyprexa - PO 10 mg BID THIAGO Administration ASSESSMENT/PLAN: Patient is an 83 year old male with past medical history of CAD s/p CABG (2002) , [place] with stents, HTN, diverticulitis, who was brought in by due to worsening combativeness, confusion and hallucinations that started 1 week ago. #Altered mental status -Head CT showed no acute intracranial pathology -MRI of the brain ordered -Neurology (Dr. Ladd) consulted. Recommendations appreciated -Possible psych process given recent stressor (2 brothers passing away) and partial response to Zyprexa -Reorientation as able. -Continue hydration -Monitor BP, maintain normotensive range -Psychiatry (Dr. Mao) consulted. Recommendations appreciated -Discontinue Risperidal -Zyprexa 10mg PO BID for aggression and hallucinations. #Elevated T.bili -T.bili 1.2 --> 1.6 -Direct bilirubin 0.3 -RUQ ultrasound pending -Will continue to monitor #LE edema: resolved -Amlodipine held. BP currently controlled -LE US negative for DVT -Knee xray: degenerative changes, no acute process #HTN -Continue Lisinopril 20mg daily -Metoprolol 50mg daily -Amlodipine on hold #CAD -Continue ASA 81 mg daily #BPPV -Continue home Meclizine #FEN -IV LR @75cc/hr -Hypokalemia, repleted -Routine bmp monitoring -Sodium controlled diet #Prophylaxis -Heparin 5000units sq BID #Disposition -full code Visit type - Emergency Visit Emergency Visit: Yes ED Registration Date: 06/01/18 Care time: The patient presented to the Emergency Department on the above date and was hospitalized for further evaluation of their emergent condition. - New Patient This patient is new to me today: No - Critical Care Critical Care patient: No
--- NOTE | 2018-06-03 16:03 | PN ---
Teaching Attending Note Name of Resident: Gina De La Cruz ATTENDING PHYSICIAN STATEMENT I saw and evaluated the patient. I reviewed the resident's note and discussed the case with the resident. I agree with the resident's findings and plan as documented. SUBJECTIVE: No events. sachi on. OBJECTIVE: NAd. Awake, calm, knows his age, and name, and location . mumbling in Frisian CV: RRR, 3/6 Sm at base, LLSB nad Bypro . Lungs: CTAB Ext: no edema Neuro: limited, round equal pupils, reactive to light. no facial droop. moves all extremities. 1+ knee jerk and 1+ biceps b/l ASSESSMENT AND PLAN: 83 y/o man with h/o CAD, CABG, HTN, stents, recent social stressors and recent hospitalization for acute diverticulitis, who presented with worsening confusion and hallucinations x 5 weeks. 1- Confusion and hallucinations: still unclear etiology. partially improved with zyprexa. no signs of systemic infection . Psych and neuro evals reviewed. - cont zyprexa for now. - monitor response - posy for safety . - try to avoid Benzos and haldol 2- HTN, CAD: cont toprol and lisinopril. norvasc on hold . BP is controlled 3- LE edema, resolved. norvasc onhold. echo pending 4- Eosinophilia resolved. DVT PX : change heparin to Lovenox to decrease sticks in this confused/ delirious pt
[2018-06-03] MEDS ORDERED: HEPARIN NA (PORCINE) 5,000 UNITS/ML 1ML VIAL SQ SCH (22:00)
[2018-06-03] MEDS: COSOPT OS SCH (22:34)
[2018-06-04 07:16] LABS: BASO % 0.7 % (0-2.0); EOS % 6.4 % (0-4.5); HEMATOCRIT 41.5 % (35.4-49); HEMOGLOBIN 14.2 GM/dL (11.7-16.9); LYMPH % 15.6 % (8-40); MCH 29.7 pg (25.7-33.7); MCHC 34.3 g/dl (32.0-35.9); MEAN CELL VOLUME 86.6 fl (80-96); MEAN PLT VOLUME 7.9 fl (7.5-11.1); MONO % 10.1 % (3.8-10.2); NEUT % 67.2 % (42.8-82.8); PLATELET COUNT 254 K/MM3 (134-434); RBC 4.79 M/mm3 (4.00-5.60); RDW 13.3 % (11.9-15.9); WHITE BLOOD COUNT 8.3 K/mm3 (4.0-10.0)
[2018-06-04 07:54] LABS: ALBUMIN 3.2 g/dl (3.4-5.0); ALK PHOS 76 U/L (45-117); ANION GAP 10 MMOL/L (8-16); BILIRUBIN,TOTAL 1.4 mg/dL (0.2-1); BLOOD UREA NITROGEN 11 mg/dL (7-18); CALCIUM 8.5 mg/dL (8.5-10.1); CHLORIDE 106 mmol/L (98-107); CO2 26 mmol/L (21-32); CREATININE 0.7 mg/dL (0.55-1.3); GLUCOSE,RANDOM 100 mg/dL (74-106); MAGNESIUM 1.9 mg/dL (1.8-2.4); PHOSPHOROUS 2.8 mg/dL (2.5-4.9); POTASSIUM 3.7 mmol/L (3.5-5.1); SGOT/AST 33 U/L (15-37); SGPT/ALT 19 U/L (13-61); SODIUM 142 mmol/L (136-145); TOT PROT 6.6 g/dl (6.4-8.2)
[2018-06-04] MEDS: ASPIRIN 81 MG CHEWABLE TABLETS PO SCH (09:46)
[2018-06-04] MEDS: MECLIZINE HCL 12.5 MG TABLET PO SCH (09:46)
[2018-06-04] MEDS: ENOXAPARIN NA (PORCINE) 40 MG/0.4 ML DISP.SYRIN SQ SCH (09:46)
[2018-06-04] MEDS: LISINOPRIL 20 MG TABLET (FP) PO SCH (09:47)
[2018-06-04] MEDS: COSOPT OS SCH ×2 (09:50→21:24)
[2018-06-04] MEDS: OLANZapine 10 MG TABLET PO SCH ×2 (09:50→21:10)
[2018-06-04] MEDS: LACTATED RINGERS SOLUTION 1,000 ML/1,000 ML INFUS.BAG IV SCH (09:53)
--- NOTE | 2018-06-04 12:05 | PN ---
Progress Note (short form) - Note Progress Note: Neurology CHIEF COMPLAINT: AMS, Hallucinations Per Spouse PCP: Dr Vergara HISTORY OF PRESENT ILLNESS: Pt is an 83 y/o gentleman with a significant past medical history of CAD s/p CABG (tipple bypass) (2002), [place] w/ stents, HTN, diverticulitis who was BIBA to [facility] due to increasing altered mental status and combativeness. Per at bedside and daughter in law(discussed over phone), pt has been exhibiting a rapid mental decline for approximately 5 weeks. endorses that 5 weeks ago, pt was admitted to [facility] due to diverticulitis. Pt was discharged on Cipro and Metronidazole. Furthermore, pt has had decreased PO intake for the last 3-4 days prior to admission. Additionally, pt has been hallucinating for the past few weeks, seeing " children in the house" as well as having conversations with people who aren't there. Spouse also states that pt has had increased lower extremity swelling for the past 5 days. Denies chest pain, sob, nausea/vomiting, or urinary issues. Spouse states that pt's two brothers recently this year and this has made pt depressed. Patient admitted for further evaluation and CT head completed, reviewed and discussed with , no acute changes. He is more awake and interactive this AM, though still confused, sachi vest in place. Getting IV fluids, not combative but not following commands either. Psych note reviewed and respiradol d/mariya, patient put on Zyprexa. at bedside feels he's been doing better. Active Medications Aspirin (Asa -) 81 mg PO DAILY [facility] Last Admin: 06/04/18 09:46 Dose: 81 mg Enoxaparin Sodium (Lovenox -) 40 mg SQ DAILY [facility] Last Admin: 06/04/18 09:46 Dose: 40 mg Lactated Ringer's (Lactated Ringers Solution) 1,000 ml in 1,000 mls @ 75 mls/ hr IV ASDIR [facility] Last Admin: 06/04/18 09:53 Dose: 75 mls/hr Lisinopril (Prinivil) 20 mg PO DAILY [facility] Last Admin: 06/04/18 09:47 Dose: 20 mg Meclizine HCl (Antivert -) 12.5 mg PO DAILY [facility] Last Admin: 06/04/18 09:46 Dose: 12.5 mg Metoprolol Succinate (Toprol Xl -) 50 mg PO DAILY [facility] Last Admin: 06/04/18 09:50 Dose: 50 mg Cosopt Pf( Dorzolamide/Timolol/Pf [ Eye Drops] Pt's Own 1 each OS BID [facility] Last Admin: 06/04/18 09:50 Dose: 1 each Olanzapine (Zyprexa -) 10 mg PO BID [facility] Last Admin: 06/04/18 09:50 Dose: 10 mg PHYSICAL EXAMINATION Vital Signs Temperature 98.0 F 06/04/18 10:00 Pulse Rate 67 06/04/18 10:00 Respiratory Rate 22 H 06/04/18 10:00 Blood Pressure 144/66 06/04/18 10:00 O2 Sat by Pulse Oximetry (%) 98 06/03/18 09:00 GENERAL: AAOx1 HEAD: AT/NC EYES: Left eye Corneal Clouding. EARS, NOSE, THROAT: Dry mucous membranes NECK: Supple, No JVD LUNGS: CTAB HEART: 2/6 DASHA. ABDOMEN: NDNT No HSM No guarding or rigidity LOWER EXTREMITIES: B/L lower extremity edema SKIN: No rashes or lesions appreciated \\ Neuro: CN intact, moves all extremities, sensory intact CBCD WBC 8.3 K/mm3 (4.0-10.0) 06/04/18 06:00 RBC 4.79 M/mm3 (4.00-5.60) 06/04/18 06:00 Hgb 14.2 GM/dL (11.7-16.9) 06/04/18 06:00 Hct 41.5 % (35.4-49) 06/04/18 06:00 MCV 86.6 fl (80-96) 06/04/18 06:00 MCHC 34.3 g/dl (32.0-35.9) 06/04/18 06:00 RDW 13.3 % (11.9-15.9) 06/04/18 06:00 Plt Count 254 K/MM3 (134-434) 06/04/18 06:00 MPV 7.9 fl (7.5-11.1) 06/04/18 06:00 CMP Sodium 142 mmol/L (136-145) 06/04/18 06:00 Potassium 3.7 mmol/L (3.5-5.1) 06/04/18 06:00 Chloride 106 mmol/L (98-107) 06/04/18 06:00 Carbon Dioxide 26 mmol/L (21-32) 06/04/18 06:00 Anion Gap 10 MMOL/L (8-16) 06/04/18 06:00 BUN 11 mg/dL (7-18) 06/04/18 06:00 Creatinine 0.7 mg/dL (0.55-1.3) 06/04/18 06:00 Creat Clearance w eGFR 108.24 (>60) 06/04/18 06:00 Random Glucose 100 mg/dL (74-106) 06/04/18 06:00 Calcium 8.5 mg/dL (8.5-10.1) 06/04/18 06:00 Total Bilirubin 1.4 mg/dL (0.2-1) H 06/04/18 06:00 AST 33 U/L (15-37) 06/04/18 06:00 ALT 19 U/L (13-61) 06/04/18 06:00 Alkaline Phosphatase 76 U/L (45-117) 06/04/18 06:00 Total Protein 6.6 g/dl (6.4-8.2) 06/04/18 06:00 Albumin 3.2 g/dl (3.4-5.0) L 06/04/18 06:00 CARDIAC ENZYMES Creatine Kinase 149 U/L (26-308) 06/01/18 17:45 Troponin I < 0.02 ng/ml (0.00-0.05) 06/01/18 17:45 ASSESSMENT/PLAN: Pt is an 83 y/o gentleman with a significant past medical history of CAD s/p CABG (tipple bypass) (2002), RI w/ stents, HTN, diverticulitis who was BIBA to [facility] due to increasing altered mental status and combativeness. Per at bedside and daughter in law(discussed over phone), pt has been exhibiting a rapid mental decline for approximately 5 weeks. endorses that 5 weeks ago, pt was admitted to [facility] due to diverticulitis. Pt was discharged on Cipro and Metronidazole. Furthermore, pt has had decreased PO intake for the last 3-4 days. Additionally, pt has been hallucinating for the past few weeks, seeing " children in the house" as well as having conversations with people who aren't there. Spouse also states that pt has had increased lower extremity swelling for the past 5 days. Denies chest pain, sob, nausea/vomiting, or urinary issues. Spouse states that pt's two brothers recently this year and this has made pt depressed. Patient admitted for further evaluation and CT head completed, reviewed and discussed with , no acute changes. He is more awake and interactive this AM, though still confused, sachi vest in place. Getting IV fluids, not combative but not following commands either. Psych note reviewed and respiradol d/mariya, patient put on Zyprexa. UA negative, infectious work up not been revealing. Possibly psych process given recent stressor and partial response to Zyprexa noted. CT head negative, MRI not likely to show acute changes as patient without focal deficits. Reorientation as able. Continue hydration. Monitor BP, maintain normotensive range.
--- NOTE | 2018-06-04 12:45 | PN ---
Physical Exam: SUBJECTIVE: Patient seen and examined. He is confused, not able to answer questions, not able to follow commands. OBJECTIVE: Vital Signs Period Temp Pulse Resp BP Sys/Schneider Pulse Ox Last 24 Hr 98 F-98.7 F 65-96 20-24 119-160/66-99 GENERAL: The patient is awake, alert, and confused. LUNGS: Poor inspiratory effort, breath sounds equal, clear to auscultation bilaterally, no wheezes, no crackles, no accessory muscle use. HEART: Regular rate and rhythm, S1, S2, (+) 2/6 SM. ABDOMEN: Soft, nondistended, normoactive bowel sounds, no guarding, no rebound, no hepatosplenomegaly, no masses. EXTREMITIES: 2+ pulses, warm, well-perfused, no edema. NEUROLOGICAL: Unable to fully assess. Moving all extremities. Uncooperative with exam. No gross focal deficits noted. Laboratory Results - last 24 hr 06/04/18 06/04/18 06:00 06:00 WBC 8.3 RBC 4.79 Hgb 14.2 Hct 41.5 MCV 86.6 MCH 29.7 MCHC 34.3 RDW 13.3 Plt Count 254 MPV 7.9 Absolute Neuts (auto) 5.6 Neutrophils % 67.2 Lymphocytes % 15.6 Monocytes % 10.1 Eosinophils % 6.4 H Basophils % 0.7 Nucleated RBC % 0 Sodium 142 Potassium 3.7 Chloride 106 Carbon Dioxide 26 Anion Gap 10 BUN 11 Creatinine 0.7 Creat Clearance w eGFR 108.24 Random Glucose 100 Calcium 8.5 Phosphorus 2.8 Magnesium 1.9 Total Bilirubin 1.4 H AST 33 ALT 19 Alkaline Phosphatase 76 Total Protein 6.6 Albumin 3.2 L Active Medications Generic Name Dose Route Start Last Admin Trade Name Freq PRN Reason Stop Dose Admin Aspirin 81 mg 06/02/18 10:00 06/04/18 09:46 Asa - PO 81 mg DAILY [facility] Administration Enoxaparin Sodium 40 mg 06/04/18 10:00 06/04/18 09:46 Lovenox - SQ 40 mg DAILY [facility] Administration Lactated Ringer's 1,000 ml in 1,000 mls @ 75 mls/hr 06/02/18 00:30 06/04/18 09:53 Lactated Ringers Solution IV 75 mls/hr ASDIR [facility] Administration Lisinopril 20 mg 06/02/18 10:00 06/04/18 09:47 Prinivil PO 20 mg DAILY [facility] Administration Meclizine HCl 12.5 mg 06/02/18 10:00 06/04/18 09:46 Antivert - PO 12.5 mg DAILY [facility] Administration Metoprolol Succinate 50 mg 06/02/18 10:00 06/04/18 09:50 Toprol Xl - PO 50 mg DAILY [facility] Administration Cosopt Pf( 1 each 06/03/18 22:00 06/04/18 09:50 Dorzolamide/Timolol/ OS 1 each Pf [ Eye Drops] Pt's BID [facility] Administration Own Olanzapine 10 mg 06/02/18 22:00 06/04/18 09:50 Zyprexa - PO 10 mg BID [facility] Administration ASSESSMENT/PLAN: This is an 83 year old man with a history of CAD, SC, CABG, stents, HTN, dizziness who presented to the ED with confusion, hallucinations, and combativeness. 1. Acute metabolic encephalopathy vs dementia - There has been some improvement since Risperdal was discontinued and Zyprexa started - No obvious infection - No significant electrolyte abnormalities - B12, folate, TSH normal - RPR negative - Thiamine pending - MRI ordered but patient will not be able to cooperate at this time 2. HTN - Continue lisinopril, Toprol XL - Norvasc held secondary to peripheral edema 3. Leg edema - Improved - Norvasc held - No evidence of DVT - Echo ordered 4. CAD, history of SC, CABG, possible stents - Continue aspirin, Toprol XL 5. Possible history of cardiac valve replacement 6. Chronic dizziness - Continue meclizine 7. Eosinophilia 8. No evidence of urinary retention Family reports patient had recent valve replacement surgery and never had cardiac stents. Will need to obtain prior records from [facility]. Visit type - Emergency Visit Emergency Visit: Yes ED Registration Date: 06/01/18 Care time: The patient presented to the Emergency Department on the above date and was hospitalized for further evaluation of their emergent condition. - New Patient This patient is new to me today: No - Critical Care Critical Care patient: No - Discharge Referral Referred to [facility] Med P.C.: No
[2018-06-05] MEDS: LACTATED RINGERS SOLUTION 1,000 ML/1,000 ML INFUS.BAG IV SCH ×3 (00:02→18:39)
--- NOTE | 2018-06-05 09:15 | PN ---
Progress Note (short form) - Note Progress Note: Neurology CHIEF COMPLAINT: AMS, Hallucinations Per Spouse PCP: Dr Vergara HISTORY OF PRESENT ILLNESS: Pt is an 83 y/o gentleman with a significant past medical history of CAD s/p CABG (tipple bypass) (2002), [place] w/ stents, HTN, diverticulitis who was BIBA to [facility] due to increasing altered mental status and combativeness. Per at bedside and daughter in law(discussed over phone), pt has been exhibiting a rapid mental decline for approximately 5 weeks. endorses that 5 weeks ago, pt was admitted to [facility] due to diverticulitis. Pt was discharged on Cipro and Metronidazole. Furthermore, pt has had decreased PO intake for the last 3-4 days prior to admission. Additionally, pt has been hallucinating for the past few weeks, seeing " children in the house" as well as having conversations with people who aren't there. Spouse also states that pt has had increased lower extremity swelling for the past 5 days. Denies chest pain, sob, nausea/vomiting, or urinary issues. Spouse states that pt's two brothers recently this year and this has made pt depressed. Patient admitted for further evaluation and CT head completed, reviewed and discussed with , no acute changes. He is more awake and interactive this AM, though still confused, sachi vest in place. Getting IV fluids, not combative but not following commands either. Psych note reviewed and respiradol d/mariya, patient put on Zyprexa. Looks much improved this AM and over the weekend. Now alert, speaking [place] islander, does not want vitals taken. Per resident, family did not want patient on Zyprexa though to me it seems he's improved on it and I defer to psych regarding exact medications for his hallucinations. Resident to speak to family. Active Medications Aspirin (Asa -) 81 mg PO DAILY [facility] Last Admin: 06/04/18 09:46 Dose: 81 mg Enoxaparin Sodium (Lovenox -) 40 mg SQ DAILY [facility] Last Admin: 06/04/18 09:46 Dose: 40 mg Lactated Ringer's (Lactated Ringers Solution) 1,000 ml in 1,000 mls @ 75 mls/ hr IV ASDIR [facility] Last Admin: 06/05/18 00:02 Dose: 75 mls/hr Lisinopril (Prinivil) 20 mg PO DAILY [facility] Last Admin: 06/04/18 09:47 Dose: 20 mg Meclizine HCl (Antivert -) 12.5 mg PO DAILY [facility] Last Admin: 06/04/18 09:46 Dose: 12.5 mg Metoprolol Succinate (Toprol Xl -) 50 mg PO DAILY [facility] Last Admin: 06/04/18 09:50 Dose: 50 mg Cosopt Pf( Dorzolamide/Timolol/Pf [ Eye Drops] Pt's Own 1 each OS BID [facility] Last Admin: 06/04/18 21:24 Dose: 1 each Olanzapine (Zyprexa -) 10 mg PO BID [facility] Last Admin: 06/04/18 21:10 Dose: Not Given PHYSICAL EXAMINATION Vital Signs Period Temp Pulse Resp BP Sys/Schneider Pulse Ox Last 24 Hr 97.5 F-98.9 F 64-83 20-22 125-158/64-85 95 GENERAL: AAOx1 HEAD: AT/NC EYES: Left eye Corneal Clouding. EARS, NOSE, THROAT: Dry mucous membranes NECK: Supple, No JVD LUNGS: CTAB HEART: 2/6 DASHA. ABDOMEN: NDNT No HSM No guarding or rigidity LOWER EXTREMITIES: B/L lower extremity edema SKIN: No rashes or lesions appreciated \\ Neuro: CN intact, moves all extremities, sensory intact CBCD WBC 8.3 K/mm3 (4.0-10.0) 06/04/18 06:00 RBC 4.79 M/mm3 (4.00-5.60) 06/04/18 06:00 Hgb 14.2 GM/dL (11.7-16.9) 06/04/18 06:00 Hct 41.5 % (35.4-49) 06/04/18 06:00 MCV 86.6 fl (80-96) 06/04/18 06:00 MCHC 34.3 g/dl (32.0-35.9) 06/04/18 06:00 RDW 13.3 % (11.9-15.9) 06/04/18 06:00 Plt Count 254 K/MM3 (134-434) 06/04/18 06:00 MPV 7.9 fl (7.5-11.1) 06/04/18 06:00 CMP Sodium 142 mmol/L (136-145) 06/04/18 06:00 Potassium 3.7 mmol/L (3.5-5.1) 06/04/18 06:00 Chloride 106 mmol/L (98-107) 06/04/18 06:00 Carbon Dioxide 26 mmol/L (21-32) 06/04/18 06:00 Anion Gap 10 MMOL/L (8-16) 06/04/18 06:00 BUN 11 mg/dL (7-18) 06/04/18 06:00 Creatinine 0.7 mg/dL (0.55-1.3) 06/04/18 06:00 Creat Clearance w eGFR 108.24 (>60) 06/04/18 06:00 Random Glucose 100 mg/dL (74-106) 06/04/18 06:00 Calcium 8.5 mg/dL (8.5-10.1) 06/04/18 06:00 Total Bilirubin 1.4 mg/dL (0.2-1) H 06/04/18 06:00 AST 33 U/L (15-37) 06/04/18 06:00 ALT 19 U/L (13-61) 06/04/18 06:00 Alkaline Phosphatase 76 U/L (45-117) 06/04/18 06:00 Total Protein 6.6 g/dl (6.4-8.2) 06/04/18 06:00 Albumin 3.2 g/dl (3.4-5.0) L 06/04/18 06:00 CARDIAC ENZYMES Creatine Kinase 149 U/L (26-308) 06/01/18 17:45 Troponin I < 0.02 ng/ml (0.00-0.05) 06/01/18 17:45 ASSESSMENT/PLAN: Pt is an 83 y/o gentleman with a significant past medical history of CAD s/p CABG (tipple bypass) (2002), [place] w/ stents, HTN, diverticulitis who was BIBA to [facility] due to increasing altered mental status and combativeness. Per at bedside and daughter in law(discussed over phone), pt has been exhibiting a rapid mental decline for approximately 5 weeks. endorses that 5 weeks ago, pt was admitted to [facility] due to diverticulitis. Pt was discharged on Cipro and Metronidazole. Furthermore, pt has had decreased PO intake for the last 3-4 days. Additionally, pt has been hallucinating for the past few weeks, seeing " children in the house" as well as having conversations with people who aren't there. Spouse also states that pt has had increased lower extremity swelling for the past 5 days. Denies chest pain, sob, nausea/vomiting, or urinary issues. Spouse states that pt's two brothers recently this year and this has made pt depressed. Patient admitted for further evaluation and CT head completed, reviewed and discussed with , no acute changes. He is more awake and interactive this AM, though still confused, sachi vest in place. Getting IV fluids, not combative but not following commands either. Psych note reviewed and respiradol d/mariya, patient put on Zyprexa. UA negative, infectious work up not been revealing. Likely psych process given recent stressor and good response to Zyprexa noted. CT head negative, MRI not likely to show acute changes as patient without focal deficits. Reorientation as able. Continue hydration. Monitor BP, maintain normotensive range. Now alert, speaking [place], does not want vitals taken. Per resident, family did not want patient on Zyprexa though to me it seems he's improved on it and I defer to psych regarding exact medications for his hallucinations. Resident to speak to family.
--- NOTE | 2018-06-05 10:35 | ECHO ---
Name: LEVA MEDINA Exam:Adult Echocardiogram Study Date: 06/05/2018 07:55 AM Age: 83 yrs Reason For Study: LE EDEMA Height: 66 in Weight: 170 lb BSA: 1.9 m2 MMode/2D Measurements & Calculations IVSd: 1.2 cm Ao root diam: 3.2 cm LVIDd: 4.4 cm LA dimension: 2.3 cm LVIDs: 2.4 cm LVPWd: 1.1 cm EDV(Teich): 85.7 ml LVOT diam: 2.0 cm ESV(Teich): 20.5 ml Doppler Measurements & Calculations MV E max danie: 55.3 cm/sec Ao V2 max: 156.1 cm/sec MV A max danie: 103.8 cm/sec Ao max P.7 mmHg MV E/A: 0.53 MV dec time: 0.12 sec LILIA(V,D): 2.3 cm2 LV V1 max P.0 mmHg TR max danie: 221.3 cm/sec LV V1 max: 111.6 cm/sec TR max P.6 mmHg Med Peak E' Danie: 6.9 cm/sec Med E/e': 8.1 Lat Peak E' Danie: 9.0 cm/sec Lat E/e': 6.1 Procedure The study was technically limited with all images being suboptimal in quality. Left Ventricle The left ventricle is grossly normal size. There is mild asymmetric left ventricular hypertrophy. Lef t ventricular systolic function is grossly normal. Ejection Fraction = 65-70%. Grade I diastolic dysfun ction, (abnormal relaxation pattern). The transmitral spectral Doppler flow pattern is normal for age. Regio nal wall motion abnormalities cannot be excluded due to limited visualization. Septal motion is consistent wit h post- operative state. Right Ventricle The right ventricle is mildly dilated. The right ventricular systolic function is grossly normal. Atria The left atrial size is normal. Right atrial size is normal. Mitral Valve The mitral valve is grossly normal. There is trace mitral regurgitation. Tricuspid Valve The tricuspid valve is not well visualized. There is trace tricuspid regurgitation. There was insuffi cient TR detected to calculate RV systolic pressure. Aortic Valve The prosthetic aortic valve is not well visualized. There is a bioprosthetic aortic valve. No aortic regurgitation is present. Pulmonic Valve The pulmonic valve is not well visualized. Great Vessels The aortic root is normal size. Pericardium/Pleura There is no pericardial effusion. Interpretation Summary There is no comparison study available. The left ventricle is grossly normal size. Left ventricular systolic function is grossly normal. There is mild asymmetric left ventricular hypertrophy. There is trace mitral regurgitation. Septal motion is consistent with post-operative state. There is trace tricuspid regurgitation. The right ventricular systolic function is grossly normal. Grade I diastolic dysfunction, (abnormal relaxation pattern). The transmitral spectral Doppler flow pattern is normal for age. The right ventricle is mildly dilated. There is a bioprosthetic aortic valve. The prosthetic aortic valve is not well visualized. Enrike Gaona MD 06/05/2018 10:35 AM
[2018-06-05] MEDS: ASPIRIN 81 MG CHEWABLE TABLETS PO SCH (10:40)
[2018-06-05] MEDS: LISINOPRIL 20 MG TABLET (FP) PO SCH (10:40)
[2018-06-05] MEDS: MECLIZINE HCL 12.5 MG TABLET PO SCH (10:40)
[2018-06-05] MEDS: OLANZapine 10 MG TABLET PO SCH (10:41)
[2018-06-05] MEDS: ENOXAPARIN NA (PORCINE) 40 MG/0.4 ML DISP.SYRIN SQ SCH (10:41)
[2018-06-05] MEDS: COSOPT OS SCH ×2 (10:42→22:03)
--- NOTE | 2018-06-05 14:36 | PN ---
Teaching Attending Note Name of Resident: Gina De La Cruz ATTENDING PHYSICIAN STATEMENT I saw and evaluated the patient. I reviewed the resident's note and discussed the case with the resident. I agree with the resident's findings and plan as documented. SUBJECTIVE: no events over night. he denies any pain, or OSB. OBJECTIVE: NAd. Awake, calm, knows his 01/15/1928, knows he is in a hospital CV: RRR, 3/6 Sm at base, LLSB nad [place] . Lungs: CTAB Ext: no edema Neuro: limited, round equal pupils, reactive to light. no facial droop. moves all extremities. 1+ knee jerk and 2+ biceps b/l ASSESSMENT AND PLAN: 83 y/o man with h/o CAD, CABG, HTN, stents, recent social stressors and recent hospitalization for acute diverticulitis, who presented with worsening confusion and hallucinations x 5 weeks. 1- Confusion and hallucinations: still unclear etiology.family declined zyprexa. will dc - avoid Benzos and haldol - will try to get MRI. he does not have metalic valve. 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 2- HTN, CAD: cont toprol and lisinopril. norvasc on hold . BP is controlled 3- LE edema, resolved. norvasc on hold.echo reviewed diastolic dysfunction 4- Eosinophilia resolved. lovenox HLOC
[2018-06-05] MEDS ORDERED: LORazepam 2 MG/ML SDV VIAL IVPUSH ONE (17:55)
--- NOTE | 2018-06-05 18:04 | PN ---
Physical Exam: SUBJECTIVE: Patient seen and examined at bedside this morning. No acute events overnight. Patient is still mumbling at times but is more able to converse and answer questions. Family currently refusing Zyprexa to be given to patient. Spoke with son, Yomi Maria, and he is expressing his concern about the drug and its side effects. Explained the benefits for the patient. They would want to observe patient for now to see if there would be any improvement without the medication. OBJECTIVE: Vital Signs Temperature 97.8 F 06/05/18 14:50 Pulse Rate 97 H 06/05/18 14:50 Respiratory Rate 20 06/05/18 14:50 Blood Pressure 130/92 06/05/18 14:50 O2 Sat by Pulse Oximetry (%) 95 06/05/18 09:00 GENERAL: The patient is somnolent but arousable, oriented to person and place, in no acute distress. HEAD: Normal with no signs of trauma. EYES: sclera anicteric, conjunctiva clear. 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 LUNGS: Breath sounds equal, clear to auscultation bilaterally. HEART: Regular rate and rhythm, S1, S2 +holosytolic murmur ABDOMEN: Soft, nontender, nondistended, normoactive bowel sounds. EXTREMITIES: 2+ pulses, warm, well-perfused, no edema. NEUROLOGICAL:Patient is somnolent, but arousable to voice, opens eyes when called, can answer questions but does not follow commands PSYCH: Normal mood, normal affect. SKIN: Warm, dry, normal turgor, no rashes or lesions noted Active Medications Generic Name Dose Route Start Last Admin Trade Name Freq PRN Reason Stop Dose Admin Aspirin 81 mg 06/02/18 10:00 06/05/18 10:40 Asa - PO 81 mg DAILY THIAGO Administration Enoxaparin Sodium 40 mg 06/04/18 10:00 06/05/18 10:41 Lovenox - SQ 40 mg DAILY THIAGO Administration Lactated Ringer's 1,000 ml in 1,000 mls @ 75 mls/hr 06/02/18 00:30 06/05/18 00:02 Lactated Ringers Solution IV 75 mls/hr ASDIR THIAGO Administration Lisinopril 20 mg 06/02/18 10:00 06/05/18 10:40 Prinivil PO 20 mg DAILY THIAGO Administration Meclizine HCl 12.5 mg 06/02/18 10:00 06/05/18 10:40 Antivert - PO 12.5 mg DAILY THIAGO Administration Metoprolol Succinate 50 mg 06/02/18 10:00 06/05/18 10:40 Toprol Xl - PO 50 mg DAILY THIAGO Administration Cosopt Pf( 1 each 06/03/18 22:00 06/05/18 10:42 Dorzolamide/Timolol/ OS 1 each Pf [ Eye Drops] Pt's BID THIAGO Administration Own ASSESSMENT/PLAN: Patient is an 83 year old male with past medical history of CAD s/p CABG (2002) , [place] with stents, HTN, diverticulitis, who was brought in by due to worsening combativeness, confusion and hallucinations that started 1 week ago. #Altered mental status -Head CT showed no acute intracranial pathology -MRI of the brain ordered -Neurology (Dr. Ladd) consulted. Recommendations appreciated -Possible psych process given recent stressor (2 brothers passing away) and partial response to Zyprexa -Reorientation as able. -Continue hydration -Monitor BP, maintain normotensive range -Psychiatry (Dr. Mao) consulted. Recommendations appreciated -Discontinue Risperidal -Zyprexa 10mg PO BID for aggression and hallucinations - on hold as family refuses it to be given to patient. #Elevated T.bili: improving -T.bili 1.4 -Direct bilirubin 0.3 -RUQ ultrasound - limited study. Liver, GB and pancreas can not be visualized -Will continue to monitor #LE edema: resolved -Amlodipine held. BP currently controlled -LE US negative for DVT -Knee xray: degenerative changes, no acute process #HTN -Continue Lisinopril 20mg daily -Metoprolol 50mg daily -Amlodipine on hold #CAD -Continue ASA 81 mg daily #BPPV -Continue home Meclizine #FEN -IV LR @75cc/hr -Hypokalemia, repleted -Routine bmp monitoring -Sodium controlled diet #Prophylaxis -Heparin 5000units sq BID #Disposition -full code Visit type - Emergency Visit Emergency Visit: Yes ED Registration Date: 06/01/18 Care time: The patient presented to the Emergency Department on the above date and was hospitalized for further evaluation of their emergent condition. - New Patient This patient is new to me today: No - Critical Care Critical Care patient: No
[2018-06-06 08:01] LABS: HEMATOCRIT 39.9 % (35.4-49); HEMOGLOBIN 13.7 GM/dL (11.7-16.9); MCH 29.8 pg (25.7-33.7); MCHC 34.3 g/dl (32.0-35.9); MEAN CELL VOLUME 86.7 fl (80-96); MEAN PLT VOLUME 8.3 fl (7.5-11.1); PLATELET COUNT 257 K/MM3 (134-434); WHITE BLOOD COUNT 8.7 K/mm3 (4.0-10.0)
[2018-06-06 08:32] LABS: ALBUMIN 3.1 g/dl (3.4-5.0); ALK PHOS 76 U/L (45-117); ANION GAP 8 MMOL/L (8-16); BILIRUBIN,TOTAL 1.5 mg/dL (0.2-1); BLOOD UREA NITROGEN 19 mg/dL (7-18); CALCIUM 8.7 mg/dL (8.5-10.1); CHLORIDE 104 mmol/L (98-107); CO2 25 mmol/L (21-32); CREATININE 0.7 mg/dL (0.55-1.3); GLUCOSE,RANDOM 88 mg/dL (74-106); PHOSPHOROUS 3.2 mg/dL (2.5-4.9); POTASSIUM 3.8 mmol/L (3.5-5.1); SGOT/AST 26 U/L (15-37); SGPT/ALT 20 U/L (13-61); SODIUM 137 mmol/L (136-145); TOT PROT 6.8 g/dl (6.4-8.2)
[2018-06-06] MEDS: LACTATED RINGERS SOLUTION 1,000 ML/1,000 ML INFUS.BAG IV SCH ×2 (08:57→22:05)
--- NOTE | 2018-06-06 09:20 | PN ---
Progress Note (short form) - Note Progress Note: Neurology CHIEF COMPLAINT: AMS, Hallucinations Per Spouse PCP: Dr Vergara HISTORY OF PRESENT ILLNESS: Pt is an 83 y/o gentleman with a significant past medical history of CAD s/p CABG (tipple bypass) (2002), [place] w/ stents, HTN, diverticulitis who was BIBA to [facility] due to increasing altered mental status and combativeness. Per at bedside and daughter in law(discussed over phone), pt has been exhibiting a rapid mental decline for approximately 5 weeks. endorses that 5 weeks ago, pt was admitted to [facility] due to diverticulitis. Pt was discharged on Cipro and Metronidazole. Furthermore, pt has had decreased PO intake for the last 3-4 days prior to admission. Additionally, pt has been hallucinating for the past few weeks, seeing " children in the house" as well as having conversations with people who aren't there. Spouse also states that pt has had increased lower extremity swelling for the past 5 days. Denies chest pain, sob, nausea/vomiting, or urinary issues. Spouse states that pt's two brothers recently this year and this has made pt depressed. Patient admitted for further evaluation and CT head completed, reviewed and discussed with , no acute changes. He is more awake and interactive this AM, though still confused, sachi vest in place. Getting IV fluids, not combative but not following commands either. Psych note reviewed and respiradol d/mariya, patient put on Zyprexa. Zyprexa appeared to be helping but family reportedly refused. Discussed with nurse, will defer to psych on meds but appears to be more disorganized and confused this AM, likely from not getting anti-psych medication. Active Medications Aspirin (Asa -) 81 mg PO DAILY [facility] Last Admin: 06/05/18 10:40 Dose: 81 mg Enoxaparin Sodium (Lovenox -) 40 mg SQ DAILY [facility] Last Admin: 06/05/18 10:41 Dose: 40 mg Lactated Ringer's (Lactated Ringers Solution) 1,000 ml in 1,000 mls @ 75 mls/ hr IV ASDIR [facility] Last Admin: 06/06/18 08:57 Dose: 75 mls/hr Lisinopril (Prinivil) 20 mg PO DAILY [facility] Last Admin: 06/05/18 10:40 Dose: 20 mg Meclizine HCl (Antivert -) 12.5 mg PO DAILY [facility] Last Admin: 06/05/18 10:40 Dose: 12.5 mg Metoprolol Succinate (Toprol Xl -) 50 mg PO DAILY [facility] Last Admin: 06/05/18 10:40 Dose: 50 mg Cosopt Pf( Dorzolamide/Timolol/Pf [ Eye Drops] Pt's Own 1 each OS BID [facility] Last Admin: 06/05/18 22:03 Dose: 1 each PHYSICAL EXAMINATION Vital Signs Period Temp Pulse Resp BP Sys/Schneider Pulse Ox Last 24 Hr 97.8 F-99.5 F 66-97 20-20 130-148/76-92 95 GENERAL: AAOx1 HEAD: AT/NC EYES: Left eye Corneal Clouding. EARS, NOSE, THROAT: Dry mucous membranes NECK: Supple, No JVD LUNGS: CTAB HEART: 2/6 DASHA. ABDOMEN: NDNT No HSM No guarding or rigidity LOWER EXTREMITIES: B/L lower extremity edema SKIN: No rashes or lesions appreciated \\ Neuro: CN intact, moves all extremities, sensory intact CBCD WBC 8.7 K/mm3 (4.0-10.0) 06/06/18 05:18 RBC 4.60 M/mm3 (4.00-5.60) 06/06/18 05:18 Hgb 13.7 GM/dL (11.7-16.9) 06/06/18 05:18 Hct 39.9 % (35.4-49) 06/06/18 05:18 MCV 86.7 fl (80-96) 06/06/18 05:18 MCHC 34.3 g/dl (32.0-35.9) 06/06/18 05:18 RDW 13.0 % (11.9-15.9) 06/06/18 05:18 Plt Count 257 K/MM3 (134-434) 06/06/18 05:18 MPV 8.3 fl (7.5-11.1) 06/06/18 05:18 CMP Sodium 137 mmol/L (136-145) 06/06/18 05:18 Potassium 3.8 mmol/L (3.5-5.1) 06/06/18 05:18 Chloride 104 mmol/L (98-107) 06/06/18 05:18 Carbon Dioxide 25 mmol/L (21-32) 06/06/18 05:18 Anion Gap 8 MMOL/L (8-16) 06/06/18 05:18 BUN 19 mg/dL (7-18) H 06/06/18 05:18 Creatinine 0.7 mg/dL (0.55-1.3) 06/06/18 05:18 Creat Clearance w eGFR 108.24 (>60) 06/06/18 05:18 Random Glucose 88 mg/dL (74-106) 06/06/18 05:18 Calcium 8.7 mg/dL (8.5-10.1) 06/06/18 05:18 Total Bilirubin 1.5 mg/dL (0.2-1) H 06/06/18 05:18 AST 26 U/L (15-37) 06/06/18 05:18 ALT 20 U/L (13-61) 06/06/18 05:18 Alkaline Phosphatase 76 U/L (45-117) 06/06/18 05:18 Total Protein 6.8 g/dl (6.4-8.2) 06/06/18 05:18 Albumin 3.1 g/dl (3.4-5.0) L 06/06/18 05:18 CARDIAC ENZYMES Creatine Kinase 149 U/L (26-308) 06/01/18 17:45 Troponin I < 0.02 ng/ml (0.00-0.05) 06/01/18 17:45 ASSESSMENT/PLAN: Pt is an 83 y/o gentleman with a significant past medical history of CAD s/p CABG (tipple bypass) (2002), [place] w/ stents, HTN, diverticulitis who was BIBA to [facility] due to increasing altered mental status and combativeness. Per at bedside and daughter in law(discussed over phone), pt has been exhibiting a rapid mental decline for approximately 5 weeks. endorses that 5 weeks ago, pt was admitted to [facility] due to diverticulitis. Pt was discharged on Cipro and Metronidazole. Furthermore, pt has had decreased PO intake for the last 3-4 days. Additionally, pt has been hallucinating for the past few weeks, seeing " children in the house" as well as having conversations with people who aren't there. Spouse also states that pt has had increased lower extremity swelling for the past 5 days. Denies chest pain, sob, nausea/vomiting, or urinary issues. Spouse states that pt's two brothers recently this year and this has made pt depressed. Patient admitted for further evaluation and CT head completed, reviewed and discussed with , no acute changes. He is more awake and interactive this AM, though still confused, sachi vest in place. Getting IV fluids, not combative but not following commands either. Psych note reviewed and respiradol d/mariya, patient put on Zyprexa. UA negative, infectious work up not been revealing. Likely psych process given recent stressor and good response to Zyprexa noted. CT head negative, MRI not likely to show acute changes as patient without focal deficits. Reorientation as able. Continue hydration. Monitor BP, maintain normotensive range. More disorganized off Zyprexa. Per resident, family did not want patient on Zyprexa though to me it seems he's improved on it and I defer to psych regarding exact medications for his hallucinations.
[2018-06-06] MEDS: ENOXAPARIN NA (PORCINE) 40 MG/0.4 ML DISP.SYRIN SQ SCH (11:46)
[2018-06-06] MEDS: MECLIZINE HCL 12.5 MG TABLET PO SCH (11:47)
[2018-06-06] MEDS: ASPIRIN 81 MG CHEWABLE TABLETS PO SCH (11:47)
[2018-06-06] MEDS: LISINOPRIL 20 MG TABLET (FP) PO SCH (11:47)
[2018-06-06] MEDS: COSOPT OS SCH ×2 (11:48→22:04)
--- NOTE | 2018-06-06 15:04 | PN ---
Physical Exam: SUBJECTIVE: Patient seen and examined at bedside this morning. Patient was reported to be agitated and combative overnight, still mumbling incoherently. This morning, patient was lying comfortably in bed, responding to questions and following commands. During rounds, patient again was mumbling incoherently and not responding appropriately. Informed by nurse that family was in contact. They are expressing concern about patient's condition , and are now considering putting patient back on Zyprexa. Contacted son, Yomi Maria, and confirmed they would want patient to receive Zyprexa again. OBJECTIVE: Vital Signs Temperature 99.5 F 06/06/18 06:00 Pulse Rate 66 06/06/18 06:00 Respiratory Rate 20 06/06/18 06:00 Blood Pressure 134/76 06/06/18 06:00 O2 Sat by Pulse Oximetry (%) 95 06/05/18 21:00 GENERAL: The patient is awake,alert, oriented to person and place, in no acute distress. HEAD: Normal with no signs of trauma. EYES: sclera anicteric, conjunctiva clear. 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 LUNGS: Breath sounds equal, clear to auscultation bilaterally. HEART: Regular rate and rhythm, S1, S2 +holosytolic murmur ABDOMEN: Soft, nontender, nondistended, normoactive bowel sounds. EXTREMITIES: 2+ pulses, warm, well-perfused, no edema. NEUROLOGICAL:Patient is awake, alert, opens eyes when called, can answer questions, follows commands PSYCH: Normal mood, normal affect. SKIN: Warm, dry, normal turgor, no rashes or lesions noted Laboratory Results - last 24 hr 06/06/18 06/06/18 06/06/18 05:18 05:18 13:30 WBC 8.7 RBC 4.60 Hgb 13.7 Hct 39.9 MCV 86.7 MCH 29.8 MCHC 34.3 RDW 13.0 Plt Count 257 MPV 8.3 Sodium 137 Potassium 3.8 Chloride 104 Carbon Dioxide 25 Anion Gap 8 BUN 19 H Creatinine 0.7 Creat Clearance w eGFR 108.24 Random Glucose 88 Calcium 8.7 Phosphorus 3.2 Magnesium 2.0 Total Bilirubin 1.5 H AST 26 ALT 20 Alkaline Phosphatase 76 Ammonia 12.20 Total Protein 6.8 Albumin 3.1 L Active Medications Generic Name Dose Route Start Last Admin Trade Name Pedrito PRN Reason Stop Dose Admin Aspirin 81 mg 06/02/18 10:00 06/06/18 11:47 Asa - PO 81 mg DAILY THIAGO Administration Enoxaparin Sodium 40 mg 06/04/18 10:00 06/06/18 11:46 Lovenox - SQ 40 mg DAILY THIAGO Administration Lactated Ringer's 1,000 ml in 1,000 mls @ 75 mls/hr 06/02/18 00:30 06/06/18 08:57 Lactated Ringers Solution IV 75 mls/hr ASDIR THIAGO Administration Lisinopril 20 mg 06/02/18 10:00 06/06/18 11:47 Prinivil PO 20 mg DAILY THIAGO Administration Meclizine HCl 12.5 mg 06/02/18 10:00 06/06/18 11:47 Antivert - PO 12.5 mg DAILY THIAGO Administration Metoprolol Succinate 50 mg 06/02/18 10:00 06/06/18 11:48 Toprol Xl - PO 50 mg DAILY THIAGO Administration Cosopt Pf( 1 each 06/03/18 22:00 06/06/18 11:48 Dorzolamide/Timolol/ OS 1 each Pf [ Eye Drops] Pt's BID THIAGO Administration Own ASSESSMENT/PLAN: Patient is an 83 year old male with past medical history of CAD s/p CABG (2002) , [place] with stents, HTN, diverticulitis, who was brought in by due to worsening combativeness, confusion and hallucinations that started 1 week ago. #Altered mental status -Head CT showed no acute intracranial pathology -MRI of the brain ordered -Neurology (Dr. Ladd) consulted. Recommendations appreciated -Possible psych process given recent stressor (2 brothers passing away) and partial response to Zyprexa -Reorientation as able. -Continue hydration -Monitor BP, maintain normotensive range -Psychiatry (Dr. Mao) consulted. Recommendations appreciated -Discontinue Risperidal -Zyprexa 10mg PO BID for aggression and hallucinations #Elevated T.bili -T.bili 1.4 --> 1.6 -Direct bilirubin 0.3 -RUQ ultrasound - limited study. Liver, GB and pancreas can not be visualized -Will continue to monitor #LE edema: resolved -Amlodipine held. BP currently controlled -LE US negative for DVT -Knee xray: degenerative changes, no acute process #HTN -Continue Lisinopril 20mg daily -Metoprolol 50mg daily -Amlodipine on hold #CAD -Continue ASA 81 mg daily #BPPV -Continue home Meclizine #FEN -IV LR @75cc/hr -Hypokalemia, repleted -Routine bmp monitoring -Sodium controlled diet #Prophylaxis -Heparin 5000units sq BID #Disposition -full code Visit type - Emergency Visit Emergency Visit: Yes ED Registration Date: 06/01/18 Care time: The patient presented to the Emergency Department on the above date and was hospitalized for further evaluation of their emergent condition. - New Patient This patient is new to me today: No - Critical Care Critical Care patient: No
[2018-06-06] MEDS ORDERED: DOCUSATE SODIUM 100 MG CAPSULE (FP) PO PRN (15:06)
--- NOTE | 2018-06-06 16:09 | PN ---
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 Patient w3as given Zyprexa w3ith good response. family apparantly decided not to continue with Zyprexa which resuilted in Re occurance of psychosisw and behavioral disturbances. Familt, according to Nurse wants him to go back on Zyprexa. Rec: zyprexa 1o mg po hs for Psychosis.
--- NOTE | 2018-06-06 16:11 | PN ---
Progress Note (short form) - Note Progress Note: Patient is On Zyprexa 10 mg po bid. 2) wilol continue with Zyprexa 10 mg po bid.
--- NOTE | 2018-06-06 17:39 | PN ---
Teaching Attending Note Name of Resident: Gina De La Cruz ATTENDING PHYSICIAN STATEMENT I saw and evaluated the patient. I reviewed the resident's note and discussed the case with the resident. I agree with the resident's findings and plan as documented. SUBJECTIVE: denies any pain. limited history. No events over night OBJECTIVE: NAd. Awake, calm, minimal communication today . mumbling CV: RRR, 3/6 Sm at base, LLSB and [place] . Lungs: CTAB Ext: no edema Neuro: limited, round equal pupils, reactive to light. no facial droop. moves all extremities. ASSESSMENT AND PLAN: 83 y/o man with h/o CAD, CABG, HTN, stents, recent social stressors and recent hospitalization for acute diverticulitis, who presented with worsening confusion and hallucinations x 5 weeks. 1- Confusion and hallucinations: still unclear etiology. - resume zyprexa today as family finally agreed - MRI of brain pending, MRI questionnaire done. Ativan with MRI. 2- HTN,CAD: cont toprol and lisinopril. norvasc on hold. 3- LE edema, resolved. norvasc on hold.echo with diastolic dysfunction 4- Eosinophilia resolved. lovenox HLOC
[2018-06-06] MEDS: OLANZapine 10 MG TABLET PO SCH (22:04)
[2018-06-06] MEDS ORDERED: PT OWN MED DRAWER 7, Y5N ONE (23:00)
[2018-06-07 08:07] LABS: BASO % 0.6 % (0-2.0); EOS % 2.4 % (0-4.5); HEMOGLOBIN 13.4 GM/dL (11.7-16.9); LYMPH % 11.1 % (8-40); MCH 29.6 pg (25.7-33.7); MCHC 34.2 g/dl (32.0-35.9); MEAN CELL VOLUME 86.6 fl (80-96); MEAN PLT VOLUME 7.8 fl (7.5-11.1); MONO % 11.2 % (3.8-10.2); NEUT % 74.7 % (42.8-82.8); PLATELET COUNT 258 K/MM3 (134-434); RBC 4.51 M/mm3 (4.00-5.60); RDW 13.1 % (11.9-15.9); WHITE BLOOD COUNT 9.5 K/mm3 (4.0-10.0)
[2018-06-07 08:25] LABS: ALBUMIN 3.1 g/dl (3.4-5.0); ALK PHOS 70 U/L (45-117); ANION GAP 8 MMOL/L (8-16); BILIRUBIN,TOTAL 1.6 mg/dL (0.2-1); BLOOD UREA NITROGEN 22 mg/dL (7-18); CALCIUM 8.7 mg/dL (8.5-10.1); CHLORIDE 106 mmol/L (98-107); CO2 26 mmol/L (21-32); CREATININE 0.7 mg/dL (0.55-1.3); GLUCOSE,RANDOM 88 mg/dL (74-106); MAGNESIUM 2.1 mg/dL (1.8-2.4); PHOSPHOROUS 2.9 mg/dL (2.5-4.9); POTASSIUM 3.6 mmol/L (3.5-5.1); SGOT/AST 25 U/L (15-37); SGPT/ALT 18 U/L (13-61); SODIUM 141 mmol/L (136-145); TOT PROT 6.6 g/dl (6.4-8.2)
--- NOTE | 2018-06-07 09:12 | PN ---
Progress Note (short form) - Note Progress Note: Neurology CHIEF COMPLAINT: AMS, Hallucinations Per Spouse PCP: Dr Vergara HISTORY OF PRESENT ILLNESS: Pt is an 83 y/o gentleman with a significant past medical history of CAD s/p CABG (tipple bypass) (2002), [place] w/ stents, HTN, diverticulitis who was BIBA to [facility] due to increasing altered mental status and combativeness. Per at bedside and daughter in law(discussed over phone), pt has been exhibiting a rapid mental decline for approximately 5 weeks. endorses that 5 weeks ago, pt was admitted to [facility] due to diverticulitis. Pt was discharged on Cipro and Metronidazole. Furthermore, pt has had decreased PO intake for the last 3-4 days prior to admission. Additionally, pt has been hallucinating for the past few weeks, seeing " children in the house" as well as having conversations with people who aren't there. Spouse also states that pt has had increased lower extremity swelling for the past 5 days. Denies chest pain, sob, nausea/vomiting, or urinary issues. Spouse states that pt's two brothers recently this year and this has made pt depressed. Patient admitted for further evaluation and CT head completed, reviewed and discussed with , no acute changes. Psych note reviewed, patient back on Zyprexa, improved this AM. Not combative but sleepy this AM. No family at bedside. Discussed with nurse. Active Medications Aspirin (Asa -) 81 mg PO DAILY [facility] Last Admin: 06/06/18 11:47 Dose: 81 mg Docusate Sodium (Colace -) 100 mg PO Q12H PRN PRN Reason: CONSTIPATION Enoxaparin Sodium (Lovenox -) 40 mg SQ DAILY [facility] Last Admin: 06/06/18 11:46 Dose: 40 mg Lactated Ringer's (Lactated Ringers Solution) 1,000 ml in 1,000 mls @ 75 mls/ hr IV ASDIR [facility] Last Admin: 06/06/18 22:05 Dose: 75 mls/hr Lisinopril (Prinivil) 20 mg PO DAILY [facility] Last Admin: 06/06/18 11:47 Dose: 20 mg Meclizine HCl (Antivert -) 12.5 mg PO DAILY [facility] Last Admin: 06/06/18 11:47 Dose: 12.5 mg Metoprolol Succinate (Toprol Xl -) 50 mg PO DAILY [facility] Last Admin: 06/06/18 11:48 Dose: 50 mg Cosopt Pf( Dorzolamide/Timolol/Pf [ Eye Drops] Pt's Own 1 each OS BID [facility] Last Admin: 06/06/18 22:04 Dose: 1 each Olanzapine (Zyprexa -) 10 mg PO BID [facility] Last Admin: 06/06/18 22:04 Dose: 10 mg Polyethylene Glycol (Miralax (For Daily Use) -) 17 gm PO DAILY [facility] PHYSICAL EXAMINATION Vital Signs Period Temp Pulse Resp BP Sys/Schneider Pulse Ox Last 24 Hr 97.7 F-98.3 F 71-76 20-20 128-153/73-92 93 GENERAL: AAOx1 HEAD: AT/NC EYES: Left eye Corneal Clouding. EARS, NOSE, THROAT: Dry mucous membranes NECK: Supple, No JVD LUNGS: CTAB HEART: 2/6 DASHA. ABDOMEN: NDNT No HSM No guarding or rigidity LOWER EXTREMITIES: B/L lower extremity edema SKIN: No rashes or lesions appreciated \\ Neuro: CN intact, moves all extremities, sensory intact CBCD WBC 9.5 K/mm3 (4.0-10.0) 06/07/18 07:00 RBC 4.51 M/mm3 (4.00-5.60) 06/07/18 07:00 Hgb 13.4 GM/dL (11.7-16.9) 06/07/18 07:00 Hct 39.0 % (35.4-49) 06/07/18 07:00 MCV 86.6 fl (80-96) 06/07/18 07:00 MCHC 34.2 g/dl (32.0-35.9) 06/07/18 07:00 RDW 13.1 % (11.9-15.9) 06/07/18 07:00 Plt Count 258 K/MM3 (134-434) 06/07/18 07:00 MPV 7.8 fl (7.5-11.1) 06/07/18 07:00 CMP Sodium 141 mmol/L (136-145) 06/07/18 07:00 Potassium 3.6 mmol/L (3.5-5.1) 06/07/18 07:00 Chloride 106 mmol/L (98-107) 06/07/18 07:00 Carbon Dioxide 26 mmol/L (21-32) 06/07/18 07:00 Anion Gap 8 MMOL/L (8-16) 06/07/18 07:00 BUN 22 mg/dL (7-18) H 06/07/18 07:00 Creatinine 0.7 mg/dL (0.55-1.3) 06/07/18 07:00 Creat Clearance w eGFR 108.24 (>60) 06/07/18 07:00 Random Glucose 88 mg/dL (74-106) 06/07/18 07:00 Calcium 8.7 mg/dL (8.5-10.1) 06/07/18 07:00 Total Bilirubin 1.6 mg/dL (0.2-1) H 06/07/18 07:00 AST 25 U/L (15-37) 06/07/18 07:00 ALT 18 U/L (13-61) 06/07/18 07:00 Alkaline Phosphatase 70 U/L (45-117) 06/07/18 07:00 Total Protein 6.6 g/dl (6.4-8.2) 06/07/18 07:00 Albumin 3.1 g/dl (3.4-5.0) L 06/07/18 07:00 CARDIAC ENZYMES Creatine Kinase 149 U/L (26-308) 06/01/18 17:45 Troponin I < 0.02 ng/ml (0.00-0.05) 06/01/18 17:45 ASSESSMENT/PLAN: Pt is an 83 y/o gentleman with a significant past medical history of CAD s/p CABG (tipple bypass) (2002), [place] w/ stents, HTN, diverticulitis who was BIBA to [facility] due to increasing altered mental status and combativeness. Per at bedside and daughter in law(discussed over phone), pt has been exhibiting a rapid mental decline for approximately 5 weeks. endorses that 5 weeks ago, pt was admitted to [facility] due to diverticulitis. Pt was discharged on Cipro and Metronidazole. Furthermore, pt has had decreased PO intake for the last 3-4 days. Additionally, pt has been hallucinating for the past few weeks, seeing " children in the house" as well as having conversations with people who aren't there. Spouse also states that pt has had increased lower extremity swelling for the past 5 days. Denies chest pain, sob, nausea/vomiting, or urinary issues. Spouse states that pt's two brothers recently this year and this has made pt depressed. Patient admitted for further evaluation and CT head completed, reviewed and discussed with , no acute changes. He is more awake and interactive this AM, though still confused, sachi vest in place. Getting IV fluids, not combative but not following commands either. Psych note reviewed and respiradol d/mariya, patient put on Zyprexa. UA negative, infectious work up not been revealing. Likely psych process given recent stressor and good response to Zyprexa noted. CT head negative, MRI not likely to show acute changes as patient without focal deficits. Reorientation as able. Continue hydration. Monitor BP, maintain normotensive range. More disorganized off Zyprexa and was restarted. Improved appearing this AM, not combative.
[2018-06-07] MEDS: ASPIRIN 81 MG CHEWABLE TABLETS PO SCH (10:18)
[2018-06-07] MEDS: MECLIZINE HCL 12.5 MG TABLET PO SCH (10:18)
[2018-06-07] MEDS: LISINOPRIL 20 MG TABLET (FP) PO SCH (10:19)
[2018-06-07] MEDS: OLANZapine 10 MG TABLET PO SCH ×2 (10:19→21:39)
[2018-06-07] MEDS: ENOXAPARIN NA (PORCINE) 40 MG/0.4 ML DISP.SYRIN SQ SCH (10:20)
[2018-06-07] MEDS: COSOPT OS SCH ×2 (10:24→21:39)
[2018-06-07] MEDS: POLYETHYLENE GLYCOL 3350 119 GM BTL PO SCH (10:29)
[2018-06-07] MEDS: LACTATED RINGERS SOLUTION 1,000 ML/1,000 ML INFUS.BAG IV SCH (10:32)
[2018-06-07] MEDS ORDERED: LORazepam 2 MG/ML SDV VIAL IVPUSH ONE ×2 (11:15→13:20)
--- NOTE | 2018-06-07 11:58 | PN ---
Teaching Attending Note Name of Resident: Gina De La Cruz ATTENDING PHYSICIAN STATEMENT I saw and evaluated the patient. I reviewed the resident's note and discussed the case with the resident. I agree with the resident's findings and plan as documented. SUBJECTIVE: Patient is confused. He is speaking [place] but not making sense. OBJECTIVE: Vital Signs Period Temp Pulse Resp BP Sys/Schneider Pulse Ox Last 24 Hr 97.7 F-98.3 F 71-76 20-20 128-153/73-92 93 HEART: S1S2, RRR LUNG: Clear ABDOMEN: Soft, non-distended, normal BS EXTREMITIES: No edema Laboratory Results - last 24 hr 06/06/18 06/07/18 06/07/18 13:30 07:00 07:00 WBC 9.5 RBC 4.51 Hgb 13.4 Hct 39.0 MCV 86.6 MCH 29.6 MCHC 34.2 RDW 13.1 Plt Count 258 MPV 7.8 Absolute Neuts (auto) 7.1 Neutrophils % 74.7 Lymphocytes % 11.1 D Monocytes % 11.2 H Eosinophils % 2.4 Basophils % 0.6 Nucleated RBC % 0 Sodium 141 Potassium 3.6 Chloride 106 Carbon Dioxide 26 Anion Gap 8 BUN 22 H Creatinine 0.7 Creat Clearance w eGFR 108.24 Random Glucose 88 Calcium 8.7 Phosphorus 2.9 Magnesium 2.1 Total Bilirubin 1.6 H AST 25 ALT 18 Alkaline Phosphatase 70 Ammonia 12.20 Total Protein 6.6 Albumin 3.1 L Current Medications Generic Name Dose Route Start Last Admin Trade Name Freq PRN Reason Stop Dose Admin Aspirin 81 mg 06/02/18 10:00 06/07/18 10:18 Asa - PO 81 mg DAILY THIAGO Administration Docusate Sodium 100 mg 06/06/18 15:06 Colace - PO Q12H PRN CONSTIPATION Enoxaparin Sodium 40 mg 06/04/18 10:00 06/07/18 10:20 Lovenox - SQ 40 mg DAILY THIAGO Administration Lactated Ringer's 1,000 ml in 1,000 mls @ 75 mls/hr 06/02/18 00:30 06/07/18 10:32 Lactated Ringers Solution IV 75 mls/hr ASDIR THIAGO Administration Lisinopril 20 mg 06/02/18 10:00 06/07/18 10:19 Prinivil PO 20 mg DAILY THIAGO Administration Meclizine HCl 12.5 mg 06/02/18 10:00 06/07/18 10:18 Antivert - PO 12.5 mg DAILY THIAGO Administration Metoprolol Succinate 50 mg 06/02/18 10:00 06/07/18 10:19 Toprol Xl - PO 50 mg DAILY THIAGO Administration Cosopt Pf( 1 each 06/03/18 22:00 06/07/18 10:24 Dorzolamide/Timolol/ OS 1 each Pf [ Eye Drops] Pt's BID THIAGO Administration Own Olanzapine 10 mg 06/06/18 22:00 06/07/18 10:19 Zyprexa - PO 10 mg BID THIAGO Administration Polyethylene Glycol 17 gm 06/07/18 10:00 06/07/18 10:29 Miralax (For Daily Use) - PO 17 grams DAILY THIAGO Administration ASSESSMENT AND PLAN: This is an 83 year old man with a history of CAD, ID, CABG, stents, HTN, dizziness who presented to the ED with confusion, hallucinations, and combativeness. 1. Acute metabolic encephalopathy vs dementia - There had been some improvement when Risperdal was discontinued and Zyprexa started. Family initially refused Zyprexa, but it has been since resumed. - No obvious infection - No significant electrolyte abnormalities - B12, folate, TSH normal - RPR negative - Thiamine pending - MRI of brain ordered 2. HTN - Continue lisinopril, Toprol XL - Norvasc held secondary to peripheral edema 3. Leg edema - Improved - Norvasc held - No evidence of DVT - Echo showed normal LV, normal EF, trace MR, trace TR, normal RV systolic function, grade I diastolic dysfunction, mildly dilated RV, bioprosthetic AV 4. CAD, history of ID, CABG, possible stents - Continue aspirin, Toprol XL 5. History of bioprosthetic AV replacement 6. Chronic dizziness - Continue meclizine 7. Eosinophilia - Resolved 8. No evidence of urinary retention 9. DVT prophylaxis - On Lovenox subq
[2018-06-07] MEDS ORDERED: POTASSIUM CHLORIDE TABS 20 MEQ TABLET.ER (FP) PO ONE (14:26)
--- NOTE | 2018-06-07 14:27 | PN ---
Physical Exam: SUBJECTIVE: Patient seen and examined at bedside this morning. No acute events overnight. Patient had a bowel movement overnight. This morning patient is awake and lying comfortably in bed. He answers questions appropriately. During the MRI, patient was reported to be combative and aggressive despite dose of Ativan and MRI was not completed. OBJECTIVE: Vital Signs Temperature 98.4 F 06/07/18 09:00 Pulse Rate 90 06/07/18 09:00 Respiratory Rate 20 06/07/18 09:00 Blood Pressure 145/76 06/07/18 09:00 O2 Sat by Pulse Oximetry (%) 93 L 06/06/18 21:00 GENERAL: The patient is awake,alert, oriented to person and place, in no acute distress. HEAD: Normal with no signs of trauma. EYES: sclera anicteric, conjunctiva clear. 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 LUNGS: Breath sounds equal, clear to auscultation bilaterally. HEART: Regular rate and rhythm, S1, S2 +holosytolic murmur ABDOMEN: Soft, nontender, nondistended, normoactive bowel sounds. EXTREMITIES: 2+ pulses, warm, well-perfused, no edema. NEUROLOGICAL:Patient is awake, alert, opens eyes when called, can answer questions, follows commands PSYCH: Normal mood, normal affect. SKIN: Warm, dry, normal turgor, no rashes or lesions noted Laboratory Results - last 24 hr 06/06/18 06/07/18 06/07/18 13:30 07:00 07:00 WBC 9.5 RBC 4.51 Hgb 13.4 Hct 39.0 MCV 86.6 MCH 29.6 MCHC 34.2 RDW 13.1 Plt Count 258 MPV 7.8 Absolute Neuts (auto) 7.1 Neutrophils % 74.7 Lymphocytes % 11.1 D Monocytes % 11.2 H Eosinophils % 2.4 Basophils % 0.6 Nucleated RBC % 0 Sodium 141 Potassium 3.6 Chloride 106 Carbon Dioxide 26 Anion Gap 8 BUN 22 H Creatinine 0.7 Creat Clearance w eGFR 108.24 Random Glucose 88 Calcium 8.7 Phosphorus 2.9 Magnesium 2.1 Total Bilirubin 1.6 H AST 25 ALT 18 Alkaline Phosphatase 70 Ammonia 12.20 Total Protein 6.6 Albumin 3.1 L Active Medications Generic Name Dose Route Start Last Admin Trade Name Freq PRN Reason Stop Dose Admin Aspirin 81 mg 06/02/18 10:00 06/07/18 10:18 Asa - PO 81 mg DAILY THIAGO Administration Docusate Sodium 100 mg 06/06/18 15:06 Colace - PO Q12H PRN CONSTIPATION Enoxaparin Sodium 40 mg 06/04/18 10:00 06/07/18 10:20 Lovenox - SQ 40 mg DAILY THIAGO Administration Lactated Ringer's 1,000 ml in 1,000 mls @ 75 mls/hr 06/02/18 00:30 06/07/18 10:32 Lactated Ringers Solution IV 75 mls/hr ASDIR THIAGO Administration Lisinopril 20 mg 06/02/18 10:00 06/07/18 10:19 Prinivil PO 20 mg DAILY THIAGO Administration Meclizine HCl 12.5 mg 06/02/18 10:00 06/07/18 10:18 Antivert - PO 12.5 mg DAILY THIAGO Administration Metoprolol Succinate 50 mg 06/02/18 10:00 06/07/18 10:19 Toprol Xl - PO 50 mg DAILY THIAGO Administration Cosopt Pf( 1 each 06/03/18 22:00 06/07/18 10:24 Dorzolamide/Timolol/ OS 1 each Pf [ Eye Drops] Pt's BID THIAGO Administration Own Olanzapine 10 mg 06/06/18 22:00 06/07/18 10:19 Zyprexa - PO 10 mg BID THIAGO Administration Polyethylene Glycol 17 gm 06/07/18 10:00 06/07/18 10:29 Miralax (For Daily Use) - PO 17 grams DAILY THIAGO Administration -Head CT - no acute intracranial pathology -Brain MRI - Very limited exam. Moderate volume loss and ventricular dilatation. A repeat/follow up MRI of the brain is needed with the patient's condition permits for further evaluation ASSESSMENT/PLAN: Patient is an 83 year old male with past medical history of CAD s/p CABG (2002) , [place] with stents, HTN, diverticulitis, who was brought in by due to worsening combativeness, confusion and hallucinations that started 1 week ago. #Altered mental status -Head CT showed no acute intracranial pathology -MRI of the brain done but not completed as patient became agitated despite Ativan dose -Neurology (Dr. Ladd) consulted. Recommendations appreciated -Possible psych process given recent stressor (2 brothers passing away) and partial response to Zyprexa -Reorientation as able. -Continue hydration -Monitor BP, maintain normotensive range -Psychiatry (Dr. Mao) consulted. Recommendations appreciated -Discontinue Risperidal -Zyprexa 10mg PO BID for aggression and hallucinations #Elevated T.bili -RUQ ultrasound - limited study. Liver, GB and pancreas can not be visualized -Will continue to monitor #LE edema: resolved -Amlodipine held. BP currently controlled -LE US negative for DVT -Knee xray: degenerative changes, no acute process #HTN -Continue Lisinopril 20mg daily -Metoprolol 50mg daily -Amlodipine on hold #CAD -Continue ASA 81 mg daily #BPPV -Continue home Meclizine #FEN -IV LR @75cc/hr -Routine bmp monitoring -Sodium controlled diet #Prophylaxis -Heparin 5000units sq BID #Disposition -full code Visit type - Emergency Visit Emergency Visit: Yes ED Registration Date: 06/01/18 Care time: The patient presented to the Emergency Department on the above date and was hospitalized for further evaluation of their emergent condition. - New Patient This patient is new to me today: No - Critical Care Critical Care patient: No
[2018-06-07] MEDS ORDERED: PT OWN MED DRAWER 7, Y5N ONE (20:52)
[2018-06-08] MEDS: LACTATED RINGERS SOLUTION 1,000 ML/1,000 ML INFUS.BAG IV SCH ×2 (04:31→18:17)
[2018-06-08 07:19] LABS: HEMATOCRIT 39.5 % (35.4-49); HEMOGLOBIN 13.9 GM/dL (11.7-16.9); MCH 30.5 pg (25.7-33.7); MCHC 35.2 g/dl (32.0-35.9); MEAN CELL VOLUME 86.7 fl (80-96); MEAN PLT VOLUME 7.9 fl (7.5-11.1); PLATELET COUNT 257 K/MM3 (134-434); RBC 4.55 M/mm3 (4.00-5.60); RDW 13.3 % (11.9-15.9); WHITE BLOOD COUNT 8.3 K/mm3 (4.0-10.0)
[2018-06-08 07:20] LABS: ALK PHOS 71 U/L (45-117); ANION GAP 8 MMOL/L (8-16); BILIRUBIN,TOTAL 1.6 mg/dL (0.2-1); BLOOD UREA NITROGEN 20 mg/dL (7-18); CALCIUM 8.6 mg/dL (8.5-10.1); CHLORIDE 105 mmol/L (98-107); CO2 25 mmol/L (21-32); CREATININE 0.7 mg/dL (0.55-1.3); GLUCOSE,RANDOM 88 mg/dL (74-106); MAGNESIUM 2.1 mg/dL (1.8-2.4); PHOSPHOROUS 2.9 mg/dL (2.5-4.9); POTASSIUM 3.7 mmol/L (3.5-5.1); SGOT/AST 28 U/L (15-37); SGPT/ALT 21 U/L (13-61); SODIUM 138 mmol/L (136-145); TOT PROT 6.8 g/dl (6.4-8.2)
--- NOTE | 2018-06-08 08:43 | PN ---
Progress Note (short form) - Note Progress Note: Neurology CHIEF COMPLAINT: AMS, Hallucinations Per Spouse PCP: Dr Vergara HISTORY OF PRESENT ILLNESS: Pt is an 83 y/o gentleman with a significant past medical history of CAD s/p CABG (tipple bypass) (2002), [place] w/ stents, HTN, diverticulitis who was BIBA to [facility] due to increasing altered mental status and combativeness. Per at bedside and daughter in law(discussed over phone), pt has been exhibiting a rapid mental decline for approximately 5 weeks. endorses that 5 weeks ago, pt was admitted to [facility] due to diverticulitis. Pt was discharged on Cipro and Metronidazole. Furthermore, pt has had decreased PO intake for the last 3-4 days prior to admission. Additionally, pt has been hallucinating for the past few weeks, seeing " children in the house" as well as having conversations with people who aren't there. Spouse also states that pt has had increased lower extremity swelling for the past 5 days. Denies chest pain, sob, nausea/vomiting, or urinary issues. Spouse states that pt's two brothers recently this year and this has made pt depressed. Patient admitted for further evaluation and CT head completed, reviewed and discussed with , no acute changes. Psych note reviewed, patient back on Zyprexa, remains calm and cooperative now. MRI brain completed, significant motion artifiact but no acute changes noted and specifically no mass lesions or infarcts seen. Does not show of significant acute process. Discussed with resident, may benefit from short term rehab which reportedly family is interested in. Active Medications Aspirin (Asa -) 81 mg PO DAILY REPLACED BY [facility] Last Admin: 06/07/18 10:18 Dose: 81 mg Docusate Sodium (Colace -) 100 mg PO Q12H PRN PRN Reason: CONSTIPATION Enoxaparin Sodium (Lovenox -) 40 mg SQ DAILY REPLACED BY [facility] Last Admin: 06/07/18 10:20 Dose: 40 mg Lactated Ringer's (Lactated Ringers Solution) 1,000 ml in 1,000 mls @ 75 mls/ hr IV ASDIR REPLACED BY [facility] Last Admin: 06/08/18 04:31 Dose: 75 mls/hr Lisinopril (Prinivil) 20 mg PO DAILY REPLACED BY [facility] Last Admin: 06/07/18 10:19 Dose: 20 mg Meclizine HCl (Antivert -) 12.5 mg PO DAILY REPLACED BY [facility] Last Admin: 06/07/18 10:18 Dose: 12.5 mg Metoprolol Succinate (Toprol Xl -) 50 mg PO DAILY REPLACED BY [facility] Last Admin: 06/07/18 10:19 Dose: 50 mg Cosopt Pf( Dorzolamide/Timolol/Pf [ Eye Drops] Pt's Own 1 each OS BID REPLACED BY [facility] Last Admin: 06/07/18 21:39 Dose: 1 each Olanzapine (Zyprexa -) 10 mg PO BID REPLACED BY [facility] Last Admin: 06/07/18 21:39 Dose: 10 mg Polyethylene Glycol (Miralax (For Daily Use) -) 17 gm PO DAILY REPLACED BY [facility] Last Admin: 06/07/18 10:29 Dose: 17 grams PHYSICAL EXAMINATION Vital Signs Period Temp Pulse Resp BP Sys/Schneider Pulse Ox Last 24 Hr 98.4 F-99.1 F 62-90 18-22 138-151/61-93 93-93 GENERAL: AAOx1 HEAD: AT/NC EYES: Left eye Corneal Clouding. EARS, NOSE, THROAT: Dry mucous membranes NECK: Supple, No JVD LUNGS: CTAB HEART: 2/6 DASHA. ABDOMEN: NDNT No HSM No guarding or rigidity LOWER EXTREMITIES: B/L lower extremity edema SKIN: No rashes or lesions appreciated \\ Neuro: CN intact, moves all extremities, sensory intact, gait deferred CBCD WBC 8.3 K/mm3 (4.0-10.0) 06/08/18 06:00 RBC 4.55 M/mm3 (4.00-5.60) 06/08/18 06:00 Hgb 13.9 GM/dL (11.7-16.9) 06/08/18 06:00 Hct 39.5 % (35.4-49) 06/08/18 06:00 MCV 86.7 fl (80-96) 06/08/18 06:00 MCHC 35.2 g/dl (32.0-35.9) 06/08/18 06:00 RDW 13.3 % (11.9-15.9) 06/08/18 06:00 Plt Count 257 K/MM3 (134-434) 06/08/18 06:00 MPV 7.9 fl (7.5-11.1) 06/08/18 06:00 CMP Sodium 138 mmol/L (136-145) 06/08/18 06:00 Potassium 3.7 mmol/L (3.5-5.1) 06/08/18 06:00 Chloride 105 mmol/L (98-107) 06/08/18 06:00 Carbon Dioxide 25 mmol/L (21-32) 06/08/18 06:00 Anion Gap 8 MMOL/L (8-16) 06/08/18 06:00 BUN 20 mg/dL (7-18) H 06/08/18 06:00 Creatinine 0.7 mg/dL (0.55-1.3) 06/08/18 06:00 Creat Clearance w eGFR 108.24 (>60) 06/08/18 06:00 Random Glucose 88 mg/dL (74-106) 06/08/18 06:00 Calcium 8.6 mg/dL (8.5-10.1) 06/08/18 06:00 Total Bilirubin 1.6 mg/dL (0.2-1) H 06/08/18 06:00 AST 28 U/L (15-37) 06/08/18 06:00 ALT 21 U/L (13-61) 06/08/18 06:00 Alkaline Phosphatase 71 U/L (45-117) 06/08/18 06:00 Total Protein 6.8 g/dl (6.4-8.2) 06/08/18 06:00 Albumin 3.0 g/dl (3.4-5.0) L 06/08/18 06:00 CARDIAC ENZYMES Creatine Kinase 149 U/L (26-308) 06/01/18 17:45 Troponin I < 0.02 ng/ml (0.00-0.05) 06/01/18 17:45 ASSESSMENT/PLAN: Pt is an 83 y/o gentleman with a significant past medical history of CAD s/p CABG (tipple bypass) (2002), [place] w/ stents, HTN, diverticulitis who was BIBA to [facility] due to increasing altered mental status and combativeness. Per at bedside and daughter in law(discussed over phone), pt has been exhibiting a rapid mental decline for approximately 5 weeks. endorses that 5 weeks ago, pt was admitted to [facility] due to diverticulitis. Pt was discharged on Cipro and Metronidazole. Furthermore, pt has had decreased PO intake for the last 3-4 days. Additionally, pt has been hallucinating for the past few weeks, seeing " children in the house" as well as having conversations with people who aren't there. Spouse also states that pt has had increased lower extremity swelling for the past 5 days. Denies chest pain, sob, nausea/vomiting, or urinary issues. Spouse states that pt's two brothers recently this year and this has made pt depressed. Patient admitted for further evaluation and CT head completed, reviewed and discussed with , no acute changes. He is more awake and interactive this AM, though still confused, sachi vest in place. Getting IV fluids, not combative but not following commands either. Psych note reviewed and respiradol d/mariya, patient put on Zyprexa. UA negative, infectious work up not been revealing. Likely psych process given recent stressor and good response to Zyprexa noted. CT head negative, Reorientation as able. Continue hydration. Monitor BP, maintain normotensive range. More disorganized off Zyprexa and was restarted. Improved appearing this AM, not combative. MRI brain completed, significant motion artifiact but no acute changes noted and specifically no mass lesions or infarcts seen. Does not show of significant acute process. Discussed with resident, may benefit from short term rehab which reportedly family is interested in. No objection to this, d/c planning, placement per correctional case records supervisor/ family.
[2018-06-08] MEDS: ASPIRIN 81 MG CHEWABLE TABLETS PO SCH (09:32)
[2018-06-08] MEDS: ENOXAPARIN NA (PORCINE) 40 MG/0.4 ML DISP.SYRIN SQ SCH (09:32)
[2018-06-08] MEDS: LISINOPRIL 20 MG TABLET (FP) PO SCH (09:32)
[2018-06-08] MEDS: COSOPT OS SCH ×2 (09:32→21:53)
[2018-06-08] MEDS: MECLIZINE HCL 12.5 MG TABLET PO SCH (09:32)
[2018-06-08] MEDS: OLANZapine 10 MG TABLET PO SCH ×2 (09:33→21:53)
[2018-06-08] MEDS: POLYETHYLENE GLYCOL 3350 119 GM BTL PO SCH (09:36)
--- NOTE | 2018-06-08 12:59 | PN ---
Teaching Attending Note Name of Resident: Gina De La Cruz ATTENDING PHYSICIAN STATEMENT I saw and evaluated the patient. I reviewed the resident's note and discussed the case with the resident. I agree with the resident's findings and plan as documented. SUBJECTIVE: Patient is awake, alert, confused but cooperative. OBJECTIVE: Vital Signs Period Temp Pulse Resp BP Sys/Schneider Pulse Ox Last 24 Hr 98.1 F-99.1 F 62-92 18-22 138-151/61-93 93 HEART: S1S2, RRR LUNGS: Clear ABDOMEN: Soft, non-tender, non-distended, normal BS EXTREMITIES: No edema Laboratory Results - last 24 hr 06/02/18 06/08/18 06/08/18 06:00 06:00 06:00 WBC 8.3 RBC 4.55 Hgb 13.9 Hct 39.5 MCV 86.7 MCH 30.5 MCHC 35.2 RDW 13.3 Plt Count 257 MPV 7.9 Sodium 138 Potassium 3.7 Chloride 105 Carbon Dioxide 25 Anion Gap 8 BUN 20 H Creatinine 0.7 Creat Clearance w eGFR 108.24 Random Glucose 88 Calcium 8.6 Phosphorus 2.9 Magnesium 2.1 Total Bilirubin 1.6 H AST 28 ALT 21 Alkaline Phosphatase 71 Total Protein 6.8 Albumin 3.0 L Vitamin B6 1.9 L Current Medications Generic Name Dose Route Start Last Admin Trade Name Freq PRN Reason Stop Dose Admin Aspirin 81 mg 06/02/18 10:00 06/08/18 09:32 Asa - PO 81 mg DAILY THIAGO Administration Docusate Sodium 100 mg 06/06/18 15:06 Colace - PO Q12H PRN CONSTIPATION Enoxaparin Sodium 40 mg 06/04/18 10:00 06/08/18 09:32 Lovenox - SQ 40 mg DAILY THIAGO Administration Lactated Ringer's 1,000 ml in 1,000 mls @ 75 mls/hr 06/02/18 00:30 06/08/18 04:31 Lactated Ringers Solution IV 75 mls/hr ASDIR THIAGO Administration Lisinopril 20 mg 06/02/18 10:00 06/08/18 09:32 Prinivil PO 20 mg DAILY THIAGO Administration Meclizine HCl 12.5 mg 06/02/18 10:00 06/08/18 09:32 Antivert - PO 12.5 mg DAILY THIAGO Administration Metoprolol Succinate 50 mg 06/02/18 10:00 06/08/18 09:32 Toprol Xl - PO 50 mg DAILY THIAGO Administration Cosopt Pf( 1 each 06/03/18 22:00 06/08/18 09:32 Dorzolamide/Timolol/ OS 1 each Pf [ Eye Drops] Pt's BID THIAGO Administration Own Olanzapine 10 mg 06/06/18 22:00 06/08/18 09:33 Zyprexa - PO 10 mg BID THIAGO Administration Polyethylene Glycol 17 gm 06/07/18 10:00 06/08/18 09:36 Miralax (For Daily Use) - PO 17 grams DAILY THIAGO Administration ASSESSMENT AND PLAN: This is an 83 year old man with a history of CAD, [place], CABG, stents, HTN, dizziness who presented to the ED with confusion, hallucinations, and combativeness. 1. Acute metabolic encephalopathy - Improving with Zyprexa - No obvious infection - No significant electrolyte abnormalities - B12, folate, TSH normal - RPR negative - Thiamine is low - will supplement IV 2. HTN - Continue lisinopril, Toprol XL - Norvasc held secondary to peripheral edema 3. Leg edema - Improved - Norvasc held - No evidence of DVT - Echo showed normal LV, normal EF, trace MR, trace TR, normal RV systolic function, grade I diastolic dysfunction, mildly dilated RV, bioprosthetic AV 4. CAD, history of SC, CABG, possible stents - Continue aspirin, Toprol XL 5. History of bioprosthetic AV replacement 6. Chronic dizziness - Continue meclizine 7. Eosinophilia - Resolved 8. No evidence of urinary retention 9. DVT prophylaxis - On Lovenox subq 10. Disposition - Plan for discharge to short-term rehab
--- NOTE | 2018-06-08 15:16 | PN ---
Physical Exam: SUBJECTIVE: Patient seen and examined at bedside this morning. Patient converses more appropriately this morning. As per nursing, he was more calm overnight. Off restraints today. Will continue to monitor. OBJECTIVE: Vital Signs Temperature 99.3 F 06/08/18 14:00 Pulse Rate 94 H 06/08/18 14:00 Respiratory Rate 22 H 06/08/18 14:00 Blood Pressure 148/78 06/08/18 14:00 O2 Sat by Pulse Oximetry (%) 94 L 06/08/18 10:00 GENERAL: The patient is awake,alert, oriented to person and place, in no acute distress. HEAD: Normal with no signs of trauma. EYES: sclera anicteric, conjunctiva clear. 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 LUNGS: Breath sounds equal, clear to auscultation bilaterally. HEART: Regular rate and rhythm, S1, S2 +holosytolic murmur ABDOMEN: Soft, nontender, nondistended, normoactive bowel sounds. EXTREMITIES: 2+ pulses, warm, well-perfused, no edema. NEUROLOGICAL:Patient is awake, alert, opens eyes when called, can answer questions, follows commands PSYCH: Normal mood, normal affect. SKIN: Warm, dry, normal turgor, no rashes or lesions noted Laboratory Results - last 24 hr 06/02/18 06/08/18 06/08/18 06:00 06:00 06:00 WBC 8.3 RBC 4.55 Hgb 13.9 Hct 39.5 MCV 86.7 MCH 30.5 MCHC 35.2 RDW 13.3 Plt Count 257 MPV 7.9 Sodium 138 Potassium 3.7 Chloride 105 Carbon Dioxide 25 Anion Gap 8 BUN 20 H Creatinine 0.7 Creat Clearance w eGFR 108.24 Random Glucose 88 Calcium 8.6 Phosphorus 2.9 Magnesium 2.1 Total Bilirubin 1.6 H AST 28 ALT 21 Alkaline Phosphatase 71 Total Protein 6.8 Albumin 3.0 L Vitamin B6 1.9 L Active Medications Generic Name Dose Route Start Last Admin Trade Name Freq PRN Reason Stop Dose Admin Aspirin 81 mg 06/02/18 10:00 06/08/18 09:32 Asa - PO 81 mg DAILY THIAGO Administration Docusate Sodium 100 mg 06/06/18 15:06 Colace - PO Q12H PRN CONSTIPATION Enoxaparin Sodium 40 mg 06/04/18 10:00 06/08/18 09:32 Lovenox - SQ 40 mg DAILY THIAGO Administration Lactated Ringer's 1,000 ml in 1,000 mls @ 75 mls/hr 06/02/18 00:30 06/08/18 04:31 Lactated Ringers Solution IV 75 mls/hr ASDIR THIAGO Administration Lisinopril 20 mg 06/02/18 10:00 06/08/18 09:32 Prinivil PO 20 mg DAILY THIAGO Administration Meclizine HCl 12.5 mg 06/02/18 10:00 06/08/18 09:32 Antivert - PO 12.5 mg DAILY THIAGO Administration Metoprolol Succinate 50 mg 06/02/18 10:00 06/08/18 09:32 Toprol Xl - PO 50 mg DAILY THIAGO Administration Cosopt Pf( 1 each 06/03/18 22:00 06/08/18 09:32 Dorzolamide/Timolol/ OS 1 each Pf [ Eye Drops] Pt's BID THIAGO Administration Own Olanzapine 10 mg 06/06/18 22:00 06/08/18 09:33 Zyprexa - PO 10 mg BID THIAGO Administration Polyethylene Glycol 17 gm 06/07/18 10:00 06/08/18 09:36 Miralax (For Daily Use) - PO 17 grams DAILY THIAGO Administration -Head CT - no acute intracranial pathology -Brain MRI - Very limited exam. Moderate volume loss and ventricular dilatation. A repeat/follow up MRI of the brain is needed with the patient's condition permits for further evaluation ASSESSMENT/PLAN: Patient is an 83 year old male with past medical history of CAD s/p CABG (2002) , [place] with stents, HTN, diverticulitis, who was brought in by due to worsening combativeness, confusion and hallucinations that started 1 week ago. 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 Ladd) consulted. Recommendations appreciated -Possible psych process given recent stressor (2 brothers passing away) and partial response to Zyprexa -Reorientation as able. -Continue hydration -Monitor BP, maintain normotensive range -Psychiatry (Dr. Mao) consulted. Recommendations appreciated -Discontinue Risperidal -Zyprexa 10mg PO BID for aggression and hallucinations -Physical therapy #Elevated T.bili -RUQ ultrasound - limited study. Liver, GB and pancreas can not be visualized -Will continue to monitor #LE edema: resolved -Amlodipine held. BP currently controlled -LE US negative for DVT -Knee xray: degenerative changes, no acute process #HTN -Continue Lisinopril 20mg daily -Metoprolol 50mg daily -Amlodipine on hold #CAD -Continue ASA 81 mg daily #BPPV -Continue home Meclizine #FEN -IV LR @75cc/hr -Routine bmp monitoring -Sodium controlled diet #Prophylaxis -Heparin 5000units sq BID #Disposition -full code -for possible dc to SNF once more stable for rehab, family agreeable. Visit type - Emergency Visit Emergency Visit: Yes ED Registration Date: 06/01/18 Care time: The patient presented to the Emergency Department on the above date and was hospitalized for further evaluation of their emergent condition. - New Patient This patient is new to me today: No - Critical Care Critical Care patient: No
[2018-06-08] MEDS: THIAMINE HCL 200 MG/2 ML VIAL IVPB SCH (21:52)
--- NOTE | 2018-06-09 08:29 | PN ---
Teaching Attending Note Name of Resident: Gina De La Cruz ATTENDING PHYSICIAN STATEMENT I saw and evaluated the patient. I reviewed the resident's note and discussed the case with the resident. I agree with the resident's findings and plan as documented. 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 Active Medications Aspirin (Asa -) 81 mg PO DAILY [facility] Last Admin: 06/08/18 09:32 Dose: 81 mg Docusate Sodium (Colace -) 100 mg PO Q12H PRN PRN Reason: CONSTIPATION Enoxaparin Sodium (Lovenox -) 40 mg SQ DAILY [facility] Last Admin: 06/08/18 09:32 Dose: 40 mg Lactated Ringer's (Lactated Ringers Solution) 1,000 ml in 1,000 mls @ 75 mls/ hr IV ASDIR [facility] Last Admin: 06/08/18 18:17 Dose: 75 mls/hr Lisinopril (Prinivil) 20 mg PO DAILY [facility] Last Admin: 06/08/18 09:32 Dose: 20 mg Meclizine HCl (Antivert -) 12.5 mg PO DAILY [facility] Last Admin: 06/08/18 09:32 Dose: 12.5 mg Metoprolol Succinate (Toprol Xl -) 50 mg PO DAILY [facility] Last Admin: 06/08/18 09:32 Dose: 50 mg Cosopt Pf( Dorzolamide/Timolol/Pf [ Eye Drops] Pt's Own 1 each OS BID [facility] Last Admin: 06/08/18 21:53 Dose: 1 each Olanzapine (Zyprexa -) 10 mg PO BID [facility] Last Admin: 06/08/18 21:53 Dose: 10 mg Polyethylene Glycol (Miralax (For Daily Use) -) 17 gm PO DAILY [facility] Last Admin: 06/08/18 09:36 Dose: 17 grams Thiamine HCl (Vitamin B1 Injection -) 200 mg IVPB DAILY [facility] Last Admin: 06/08/18 21:52 Dose: 200 mg CBC, BMP 06/08/18 06:00 06/08/18 06:00 ASSESSMENT AND PLAN:83 year old man with a history of CAD, [place], CABG, stents, HTN , dizziness who presented to the ED with confusion, hallucinations, and combativeness. Problem List - Problems (1) Toxic metabolic encephalopathy Assessment/Plan: due to dehydration top on advanced Dementia Neurology evaluated the patient cleared to Dc home Code(s): G92 - TOXIC ENCEPHALOPATHY (2) HTN (hypertension) Assessment/Plan: cont current meds F/U BP trends Code(s): I10 - ESSENTIAL (PRIMARY) HYPERTENSION (3) Dementia Assessment/Plan: Chronic cont current meds Code(s): F03.90 - UNSPECIFIED DEMENTIA WITHOUT BEHAVIORAL DISTURBANCE (4) H/O heart valve replacement with bioprosthetic valve Assessment/Plan: Remote history no active issue Code(s): Z95.3 - PRESENCE OF XENOGENIC HEART VALVE (5) CAD (coronary artery disease) Assessment/Plan: H/O CAD s/p CABG no actibve issue on Metoprolol. Code(s): I25.10 - ATHSCL HEART DISEASE OF [place] CORONARY ARTERY W/O ANG PCTRS
--- NOTE | 2018-06-09 08:50 | PN ---
Progress Note (short form) - Note Progress Note: Neurology CHIEF COMPLAINT: AMS, Hallucinations Per Spouse PCP: Dr Vergara HISTORY OF PRESENT ILLNESS: Pt is an 83 y/o gentleman with a significant past medical history of CAD s/p CABG (tipple bypass) (2002), [place] w/ stents, HTN, diverticulitis who was BIBA to [facility] due to increasing altered mental status and combativeness. Per at bedside and daughter in law(discussed over phone), pt has been exhibiting a rapid mental decline for approximately 5 weeks. endorses that 5 weeks ago, pt was admitted to [facility] due to diverticulitis. Pt was discharged on Cipro and Metronidazole. Furthermore, pt has had decreased PO intake for the last 3-4 days prior to admission. Additionally, pt has been hallucinating for the past few weeks, seeing " children in the house" as well as having conversations with people who aren't there. Spouse also states that pt has had increased lower extremity swelling for the past 5 days. Denies chest pain, sob, nausea/vomiting, or urinary issues. Spouse states that pt's two brothers recently this year and this has made pt depressed. Patient admitted for further evaluation and CT head completed, reviewed and discussed with , no acute changes. Psych note reviewed, patient back on Zyprexa, remains calm and cooperative now, much improved. MRI brain completed, significant motion artifiact but no acute changes noted and specifically no mass lesions or infarcts seen. Does not show of significant acute process. Discussed with resident, may benefit from short term rehab which reportedly family is interested in. Not in restraints since yesterday and calm. Active Medications Aspirin (Asa -) 81 mg PO DAILY [facility] Last Admin: 06/08/18 09:32 Dose: 81 mg Docusate Sodium (Colace -) 100 mg PO Q12H PRN PRN Reason: CONSTIPATION Enoxaparin Sodium (Lovenox -) 40 mg SQ DAILY [facility] Last Admin: 06/08/18 09:32 Dose: 40 mg Lactated Ringer's (Lactated Ringers Solution) 1,000 ml in 1,000 mls @ 75 mls/ hr IV ASDIR [facility] Last Admin: 06/08/18 18:17 Dose: 75 mls/hr Lisinopril (Prinivil) 20 mg PO DAILY [facility] Last Admin: 06/08/18 09:32 Dose: 20 mg Meclizine HCl (Antivert -) 12.5 mg PO DAILY [facility] Last Admin: 06/08/18 09:32 Dose: 12.5 mg Metoprolol Succinate (Toprol Xl -) 50 mg PO DAILY [facility] Last Admin: 06/08/18 09:32 Dose: 50 mg Cosopt Pf( Dorzolamide/Timolol/Pf [ Eye Drops] Pt's Own 1 each OS BID [facility] Last Admin: 06/08/18 21:53 Dose: 1 each Olanzapine (Zyprexa -) 10 mg PO BID [facility] Last Admin: 06/08/18 21:53 Dose: 10 mg Polyethylene Glycol (Miralax (For Daily Use) -) 17 gm PO DAILY [facility] Last Admin: 06/08/18 09:36 Dose: 17 grams Thiamine HCl (Vitamin B1 Injection -) 200 mg IVPB DAILY [facility] Last Admin: 06/08/18 21:52 Dose: 200 mg PHYSICAL EXAMINATION Vital Signs Period Temp Pulse Resp BP Sys/Schneider Pulse Ox Last 24 Hr 98.1 F-99.7 F 76-94 18-22 138-155/78-97 94-95 GENERAL: AAOx1 HEAD: AT/NC EYES: Left eye Corneal Clouding. EARS, NOSE, THROAT: Dry mucous membranes NECK: Supple, No JVD LUNGS: CTAB HEART: 2/6 DASHA. ABDOMEN: NDNT No HSM No guarding or rigidity LOWER EXTREMITIES: B/L lower extremity edema SKIN: No rashes or lesions appreciated \\ Neuro: CN intact, moves all extremities, sensory intact, gait deferred, calm and cooperative CBCD WBC 8.3 K/mm3 (4.0-10.0) 06/08/18 06:00 RBC 4.55 M/mm3 (4.00-5.60) 06/08/18 06:00 Hgb 13.9 GM/dL (11.7-16.9) 06/08/18 06:00 Hct 39.5 % (35.4-49) 06/08/18 06:00 MCV 86.7 fl (80-96) 06/08/18 06:00 MCHC 35.2 g/dl (32.0-35.9) 06/08/18 06:00 RDW 13.3 % (11.9-15.9) 06/08/18 06:00 Plt Count 257 K/MM3 (134-434) 06/08/18 06:00 MPV 7.9 fl (7.5-11.1) 06/08/18 06:00 CMP Sodium 138 mmol/L (136-145) 06/08/18 06:00 Potassium 3.7 mmol/L (3.5-5.1) 06/08/18 06:00 Chloride 105 mmol/L (98-107) 06/08/18 06:00 Carbon Dioxide 25 mmol/L (21-32) 06/08/18 06:00 Anion Gap 8 MMOL/L (8-16) 06/08/18 06:00 BUN 20 mg/dL (7-18) H 06/08/18 06:00 Creatinine 0.7 mg/dL (0.55-1.3) 06/08/18 06:00 Creat Clearance w eGFR 108.24 (>60) 06/08/18 06:00 Random Glucose 88 mg/dL (74-106) 06/08/18 06:00 Calcium 8.6 mg/dL (8.5-10.1) 06/08/18 06:00 Total Bilirubin 1.6 mg/dL (0.2-1) H 06/08/18 06:00 AST 28 U/L (15-37) 06/08/18 06:00 ALT 21 U/L (13-61) 06/08/18 06:00 Alkaline Phosphatase 71 U/L (45-117) 06/08/18 06:00 Total Protein 6.8 g/dl (6.4-8.2) 06/08/18 06:00 Albumin 3.0 g/dl (3.4-5.0) L 06/08/18 06:00 CARDIAC ENZYMES Creatine Kinase 149 U/L (26-308) 06/01/18 17:45 Troponin I < 0.02 ng/ml (0.00-0.05) 06/01/18 17:45 ASSESSMENT/PLAN: Pt is an 83 y/o gentleman with a significant past medical history of CAD s/p CABG (tipple bypass) (2002), [place] w/ stents, HTN, diverticulitis who was BIBA to [facility] due to increasing altered mental status and combativeness. Per at bedside and daughter in law(discussed over phone), pt has been exhibiting a rapid mental decline for approximately 5 weeks. endorses that 5 weeks ago, pt was admitted to [facility] due to diverticulitis. Pt was discharged on Cipro and Metronidazole. Furthermore, pt has had decreased PO intake for the last 3-4 days. Additionally, pt has been hallucinating for the past few weeks, seeing " children in the house" as well as having conversations with people who aren't there. Spouse also states that pt has had increased lower extremity swelling for the past 5 days. Denies chest pain, sob, nausea/vomiting, or urinary issues. Spouse states that pt's two brothers recently this year and this has made pt depressed. Patient admitted for further evaluation and CT head completed, reviewed and discussed with , no acute changes. He is more awake and interactive this AM, though still confused, sachi vest in place. Getting IV fluids, not combative but not following commands either. Psych note reviewed and respiradol d/mariya, patient put on Zyprexa. UA negative, infectious work up not been revealing. Likely psych process given recent stressor and good response to Zyprexa noted. CT head negative, Reorientation as able. Continue hydration. Monitor BP, maintain normotensive range. More disorganized off Zyprexa and was restarted. Improved appearing this AM, not combative. MRI brain completed, significant motion artifiact but no acute changes noted and specifically no mass lesions or infarcts seen. Does not show of significant acute process. Discussed with resident, may benefit from short term rehab which reportedly family is interested in. No objection to this, d/c planning, placement per case folder/ family. Not on restraints and is calm at this time without aggitation.
[2018-06-09] MEDS ORDERED: PT OWN MED DRAWER 7, Y5N ONE ×2 (11:59→12:56)
[2018-06-09] MEDS: COSOPT OS SCH ×2 (12:30→21:27)
[2018-06-09] MEDS: MECLIZINE HCL 12.5 MG TABLET PO SCH (12:31)
[2018-06-09] MEDS: LISINOPRIL 20 MG TABLET (FP) PO SCH (12:31)
[2018-06-09] MEDS: ASPIRIN 81 MG CHEWABLE TABLETS PO SCH (12:31)
[2018-06-09] MEDS: POLYETHYLENE GLYCOL 3350 119 GM BTL PO SCH (12:32)
[2018-06-09] MEDS: LACTATED RINGERS SOLUTION 1,000 ML/1,000 ML INFUS.BAG IV SCH (12:32)
[2018-06-09] MEDS: ENOXAPARIN NA (PORCINE) 40 MG/0.4 ML DISP.SYRIN SQ SCH (12:33)
[2018-06-09] MEDS: OLANZapine 10 MG TABLET PO SCH ×2 (12:37→21:27)
[2018-06-09] MEDS: THIAMINE HCL 200 MG/2 ML VIAL IVPB SCH (12:39)
--- NOTE | 2018-06-09 14:49 | PN ---
Physical Exam: SUBJECTIVE: Patient seen and examined at bedside this morning. No acute events overnight. Patient off restraints overnight. Still confused at times, but is able to have more normal conversations as per family. OBJECTIVE: Vital Signs Temperature 98.5 F 06/09/18 06:00 Pulse Rate 86 06/09/18 06:00 Respiratory Rate 20 06/09/18 06:00 Blood Pressure 138/92 06/09/18 06:00 O2 Sat by Pulse Oximetry (%) 95 06/08/18 21:00 GENERAL: The patient is awake,alert, oriented to person and place, in no acute distress. HEAD: Normal with no signs of trauma. EYES: sclera anicteric, conjunctiva clear. 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 LUNGS: Breath sounds equal, clear to auscultation bilaterally. HEART: Regular rate and rhythm, S1, S2 +holosytolic murmur ABDOMEN: Soft, nontender, nondistended, normoactive bowel sounds. EXTREMITIES: 2+ pulses, warm, well-perfused, no edema. NEUROLOGICAL:Patient is awake, alert, opens eyes when called, can answer questions, follows commands PSYCH: Normal mood, normal affect. SKIN: Warm, dry, normal turgor, no rashes or lesions noted Active Medications Generic Name Dose Route Start Last Admin Trade Name Freq PRN Reason Stop Dose Admin Aspirin 81 mg 06/02/18 10:00 06/09/18 12:31 Asa - PO 81 mg DAILY [facility] Administration Docusate Sodium 100 mg 06/06/18 15:06 Colace - PO Q12H PRN CONSTIPATION Enoxaparin Sodium 40 mg 06/04/18 10:06/09/18 12:33 Lovenox - SQ 40 mg DAILY [facility] Administration Lactated Ringer's 1,000 ml in 1,000 mls @ 75 mls/hr 06/02/18 00:30 06/09/18 12:32 Lactated Ringers Solution IV 75 mls/hr ASDIR [facility] Administration Lisinopril 20 mg 06/02/18 10:00 06/09/18 12:31 Prinivil PO 20 mg DAILY [facility] Administration Meclizine HCl 12.5 mg 06/02/18 10:00 06/09/18 12:31 Antivert - PO 12.5 mg DAILY [facility] Administration Metoprolol Succinate 50 mg 06/02/18 10:00 06/09/18 12:31 Toprol Xl - PO 50 mg DAILY [facility] Administration Cosopt Pf( 1 each 06/03/18 22:00 06/09/18 12:30 Dorzolamide/Timolol/ OS 1 each Pf [ Eye Drops] Pt's BID [facility] Administration Own Olanzapine 10 mg 06/06/18 22:00 06/09/18 12:37 Zyprexa - PO 10 mg BID [facility] Administration Polyethylene Glycol 17 gm 06/07/18 10:00 06/09/18 12:32 Miralax (For Daily Use) - PO 17 grams DAILY [facility] Administration Thiamine HCl 200 mg 06/08/18 19:30 06/09/18 12:39 Vitamin B1 Injection - IVPB 200 mg DAILY [facility] Administration -Head CT - no acute intracranial pathology -Brain MRI - Very limited exam. Moderate volume loss and ventricular dilatation. A repeat/follow up MRI of the brain is needed with the patient's condition permits for further evaluation ASSESSMENT/PLAN: Patient is an 83 year old male with past medical history of CAD s/p CABG (2002) , [place] with stents, HTN, diverticulitis, who was brought in by due to worsening combativeness, confusion and hallucinations that started 1 week ago. 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 Ladd) consulted. Recommendations appreciated -Possible psych process given recent stressor (2 brothers passing away) and partial response to Zyprexa -Reorientation as able. -Continue hydration -Monitor BP, maintain normotensive range -Psychiatry (Dr. Mao) consulted. Recommendations appreciated -Discontinue Risperidal -Zyprexa 10mg PO BID for aggression and hallucinations -Physical therapy #Elevated T.bili: stable -RUQ ultrasound - limited study. Liver, GB and pancreas can not be visualized #LE edema: resolved -Amlodipine held. BP currently controlled -LE US negative for DVT -Knee xray: degenerative changes, no acute process #HTN -Continue Lisinopril 20mg daily -Metoprolol 50mg daily -Amlodipine on hold #CAD -Continue ASA 81 mg daily #BPPV -Continue home Meclizine #FEN -IV LR @75cc/hr -Routine bmp monitoring -Sodium controlled diet #Prophylaxis -Heparin 5000units sq BID #Disposition -full code -Evaluated by PT, patient not cooperative -Family undecided at this time if they would want SNF or home. Patient has not walked with PT at this time. Visit type - Emergency Visit Emergency Visit: Yes ED Registration Date: 06/01/18 Care time: The patient presented to the Emergency Department on the above date and was hospitalized for further evaluation of their emergent condition. - New Patient This patient is new to me today: No - Critical Care Critical Care patient: No
[2018-06-10] MEDS: LACTATED RINGERS SOLUTION 1,000 ML/1,000 ML INFUS.BAG IV SCH (04:53)
--- NOTE | 2018-06-10 08:16 | PN ---
Progress Note, Physician Chief Complaint: more confused refusing meds, pointing abdomen - Current Medication List Current Medications: Active Medications Active Medications Docusate Sodium (Colace -) 100 mg PO Q12H PRN PRN Reason: CONSTIPATION Enoxaparin Sodium (Lovenox -) 40 mg SQ DAILY [facility] Last Admin: 06/10/18 13:11 Dose: 40 mg Lactated Ringer's (Lactated Ringers Solution) 1,000 ml in 1,000 mls @ 75 mls/ hr IV ASDIR [facility] Last Admin: 06/10/18 04:53 Dose: 75 mls/hr Potassium Chloride/Dextrose/Sod Cl (D5-1/2ns+10 Meq Kcl -) 10 meq in 1,000 mls @ 100 mls/hr IV ASDIR [facility] Last Admin: 06/10/18 11:03 Dose: 100 mls/hr Lorazepam (Ativan Injection -) 0.5 mg IVPUSH Q8H PRN PRN Reason: AGITATION Last Admin: 06/10/18 10:57 Dose: 0.5 mg Meclizine HCl (Antivert -) 12.5 mg PO DAILY [facility] Last Admin: 06/10/18 10:13 Dose: Not Given Metoprolol Succinate (Toprol Xl -) 50 mg PO DAILY [facility] Last Admin: 06/10/18 10:14 Dose: Not Given Cosopt Pf( Dorzolamide/Timolol/Pf [ Eye Drops] Pt's Own 1 each OS BID [facility] Last Admin: 06/10/18 09:27 Dose: 1 each Olanzapine (Zyprexa -) 10 mg PO BID [facility] Last Admin: 06/10/18 13:15 Dose: Not Given Polyethylene Glycol (Miralax (For Daily Use) -) 17 gm PO DAILY [facility] Last Admin: 06/10/18 10:14 Dose: Not Given Thiamine HCl (Vitamin B1 Injection -) 200 mg IVPB DAILY [facility] Last Admin: 06/10/18 09:29 Dose: 200 mg - Objective Vital Signs: Vital Signs Temperature 97.5 F L 06/10/18 06:00 Pulse Rate 82 06/10/18 06:00 Respiratory Rate 20 06/10/18 06:00 Blood Pressure 149/94 06/10/18 06:00 O2 Sat by Pulse Oximetry (%) 96 06/09/18 21:00 Elderly man confused man not in distress HEENT: Mm dry , no anemia, PERRLA, EOMI NECK: No JVd No Bruit CHEST: CTA B/L CVS: S1S2 SM + ABD: + distention, lower abd tenderness Bs + EXT: = edema feet, no calf tenderness, Pulses + SIGN LANGUAGE INTERPRETER: Alert and confused Labs: CBC, BMP 06/08/18 06:00 06/08/18 06:00 INR, PTT INR 1.08 (0.83-1.09) 06/02/18 06:00 Problem List - Problems (1) AMAYA (acute kidney injury) Assessment/Plan: Elevated BUN creat Hold Lisinopril, Baldder scan shows urinary retention, Foleys insertion, add Flomax consult Code(s): N17.9 - ACUTE KIDNEY FAILURE, UNSPECIFIED (2) Obstructive uropathy Assessment/Plan: Foleys catheter F/U BMP Code(s): N13.9 - OBSTRUCTIVE AND REFLUX UROPATHY, UNSPECIFIED (3) Toxic metabolic encephalopathy Assessment/Plan: due to dehydration top on advanced Dementia Neurology evaluated the patient cleared to Dc home Code(s): G92 - TOXIC ENCEPHALOPATHY (4) CAD (coronary artery disease) Assessment/Plan: H/O CAD s/p CABG no actibve issue on Metoprolol. Code(s): I25.10 - ATHSCL HEART DISEASE OF [place] CORONARY ARTERY W/O ANG PCTRS (5) H/O heart valve replacement with bioprosthetic valve Assessment/Plan: Remote history no active issue Code(s): Z95.3 - PRESENCE OF XENOGENIC HEART VALVE (6) HTN (hypertension) Assessment/Plan: cont current meds F/U BP trends Code(s): I10 - ESSENTIAL (PRIMARY) HYPERTENSION (7) Dementia Assessment/Plan: Chronic cont current meds Code(s): F03.90 - UNSPECIFIED DEMENTIA WITHOUT BEHAVIORAL DISTURBANCE (8) Palliative care encounter Assessment/Plan: needs palliative care input for evaluation of Goals of care. Code(s): Z51.5 - ENCOUNTER FOR PALLIATIVE CARE (9) Hypokalemia Assessment/Plan: Repleted F/U BMP Code(s): E87.6 - HYPOKALEMIA
[2018-06-10 08:48] LABS: BASO % 0.7 % (0-2.0); HEMATOCRIT 38.1 % (35.4-49); HEMOGLOBIN 12.9 GM/dL (11.7-16.9); LYMPH % 9.9 % (8-40); MEAN CELL VOLUME 88.3 fl (80-96); MEAN PLT VOLUME 7.7 fl (7.5-11.1); MONO % 10.2 % (3.8-10.2); NEUT % 77.2 % (42.8-82.8); PLATELET COUNT 245 K/MM3 (134-434); RBC 4.32 M/mm3 (4.00-5.60); RDW 13.2 % (11.9-15.9); WHITE BLOOD COUNT 7.6 K/mm3 (4.0-10.0)
[2018-06-10 09:21] LABS: ALBUMIN 2.8 g/dl (3.4-5.0); ALK PHOS 65 U/L (45-117); ANION GAP 7 MMOL/L (8-16); BILIRUBIN,TOTAL 1.3 mg/dL (0.2-1); BLOOD UREA NITROGEN 33 mg/dL (7-18); CALCIUM 8.4 mg/dL (8.5-10.1); CHLORIDE 107 mmol/L (98-107); CO2 28 mmol/L (21-32); CREATININE 1.5 mg/dL (0.55-1.3); GLUCOSE,RANDOM 96 mg/dL (74-106); MAGNESIUM 2.2 mg/dL (1.8-2.4); PHOSPHOROUS 3.4 mg/dL (2.5-4.9); POTASSIUM 3.3 mmol/L (3.5-5.1); SGOT/AST 22 U/L (15-37); SGPT/ALT 19 U/L (13-61); SODIUM 142 mmol/L (136-145); TOT PROT 6.4 g/dl (6.4-8.2)
[2018-06-10] MEDS: COSOPT OS SCH ×2 (09:27→21:07)
[2018-06-10] MEDS: THIAMINE HCL 200 MG/2 ML VIAL IVPB SCH (09:29)
[2018-06-10] MEDS ORDERED: LORazepam 2 MG/ML SDV VIAL IVPUSH PRN (09:50)
[2018-06-10] MEDS: MECLIZINE HCL 12.5 MG TABLET PO SCH (10:13)
[2018-06-10] MEDS: ASPIRIN 81 MG CHEWABLE TABLETS PO SCH (10:14)
[2018-06-10] MEDS: POLYETHYLENE GLYCOL 3350 119 GM BTL PO SCH (10:14)
[2018-06-10] MEDS: D5-1/2NS+10 MEQ KCL - 10 MEQ/1,000 ML INFUS.BAG IV SCH ×2 (11:03→21:02)
[2018-06-10] MEDS: ENOXAPARIN NA (PORCINE) 40 MG/0.4 ML DISP.SYRIN SQ SCH (13:11)
[2018-06-10] MEDS: OLANZapine 10 MG TABLET PO SCH ×3 (13:15→23:13)
[2018-06-10] MEDS ORDERED: SODIUM PHOSPHATE/NA BIPHOS 133 ML ENEMA PR ONE (17:00)
[2018-06-10] MEDS ORDERED: PT OWN MED DRAWER 7, Y5N ONE (23:11)
--- NOTE | 2018-06-11 08:00 | PN ---
Teaching Attending Note Name of Resident: Gina De La Cruz ATTENDING PHYSICIAN STATEMENT I saw and evaluated the patient. I reviewed the resident's note and discussed the case with the resident. I agree with the resident's findings and plan as documented. SUBJECTIVE: patient is calm and quite OBJECTIVE: Vital Signs Temperature 98.1 F 06/11/18 04:35 Pulse Rate 92 H 06/11/18 04:35 Respiratory Rate 20 06/11/18 04:35 Blood Pressure 154/98 06/11/18 04:35 O2 Sat by Pulse Oximetry (%) 94 L 06/10/18 22:00 Elderly man confused, clam no agittaion, man not in distress HEENT: Mm dry , no anemia, PERRLA, EOMI NECK: No JVd No Bruit CHEST: CTA B/L CVS: s1S2 r no m/g/r ABD: no distention, non tender Bs + EXT: No edema feet, no calf tenderness, Pulses + SENIOR LINUX ADMINISTRATOR: Alert and confused, non focal CBC, BMP 06/11/18 06:30 06/11/18 06:30 Active Medications Docusate Sodium (Colace -) 100 mg PO Q12H PRN PRN Reason: CONSTIPATION Enoxaparin Sodium (Lovenox -) 40 mg SQ DAILY [facility] Last Admin: 06/10/18 13:11 Dose: 40 mg Potassium Chloride/Dextrose/Sod Cl (D5-1/2ns+10 Meq Kcl -) 10 meq in 1,000 mls @ 100 mls/hr IV ASDIR [facility] Last Admin: 06/10/18 21:02 Dose: 100 mls/hr Lorazepam (Ativan Injection -) 0.5 mg IVPUSH Q8H PRN PRN Reason: AGITATION Last Admin: 06/10/18 10:57 Dose: 0.5 mg Meclizine HCl (Antivert -) 12.5 mg PO DAILY [facility] Last Admin: 06/10/18 10:13 Dose: Not Given Metoprolol Succinate (Toprol Xl -) 50 mg PO DAILY [facility] Last Admin: 06/10/18 10:14 Dose: Not Given Cosopt Pf( Dorzolamide/Timolol/Pf [ Eye Drops] Pt's Own 1 each OS BID [facility] Last Admin: 06/10/18 21:07 Dose: 1 each Olanzapine (Zyprexa -) 10 mg PO BID [facility] Last Admin: 06/10/18 23:13 Dose: 10 mg Polyethylene Glycol (Miralax (For Daily Use) -) 17 gm PO DAILY [facility] Last Admin: 06/10/18 10:14 Dose: Not Given Thiamine HCl (Vitamin B1 Injection -) 200 mg IVPB DAILY [facility] Last Admin: 06/10/18 09:29 Dose: 200 mg ASSESSMENT AND PLAN:83 year old man with a history of CAD, [place], CABG, stents, HTN , dizziness who presented to the ED with confusion, hallucinations, and combativeness, yesterday became yesterday more combative with abd distention in the setting of constipation and urinary retention. showed AMAYA that resolved after bladder decompression.. Problem List - Problems (1) Toxic metabolic encephalopathy Assessment/Plan: due to dehydration top on advanced Dementia Neurology evaluated the patient cleared to Dc home Code(s): G92 - TOXIC ENCEPHALOPATHY (2) HTN (hypertension) Assessment/Plan: cont current meds F/U BP trends Code(s): I10 - ESSENTIAL (PRIMARY) HYPERTENSION (3) Dementia Assessment/Plan: Chronic cont current meds Code(s): F03.90 - UNSPECIFIED DEMENTIA WITHOUT BEHAVIORAL DISTURBANCE (4) H/O heart valve replacement with bioprosthetic valve Assessment/Plan: Remote history no active issue Code(s): Z95.3 - PRESENCE OF XENOGENIC HEART VALVE (5) CAD (coronary artery disease) Assessment/Plan: H/O CAD s/p CABG no actibve issue on Metoprolol. Code(s): I25.10 - ATHSCL HEART DISEASE OF [place] CORONARY ARTERY W/O ANG PCTRS (6) Obstructive uropathy Assessment/Plan: Foleys catheter F/U BMP Code(s): N13.9 - OBSTRUCTIVE AND REFLUX UROPATHY, UNSPECIFIED (7) Hypokalemia Assessment/Plan: Repleted F/U BMP and magnesium Code(s): E87.6 - HYPOKALEMIA (8) AMAYA (acute kidney injury) Assessment/Plan: Elevated BUN creat Hold Lisinopril, Baldder scan shows urinary retention, Foleys insertion, add Flomax, consult Code(s): N17.9 - ACUTE KIDNEY FAILURE, UNSPECIFIED
[2018-06-11 08:06] LABS: BASO % 0.4 % (0-2.0); EOS % 3.6 % (0-4.5); HEMATOCRIT 41.1 % (35.4-49); LYMPH % 12.2 % (8-40); MCH 30.2 pg (25.7-33.7); MEAN CELL VOLUME 88.8 fl (80-96); MEAN PLT VOLUME 8.1 fl (7.5-11.1); MONO % 10.7 % (3.8-10.2); NEUT % 73.1 % (42.8-82.8); PLATELET COUNT 253 K/MM3 (134-434); RBC 4.63 M/mm3 (4.00-5.60); RDW 13.4 % (11.9-15.9); WHITE BLOOD COUNT 7.8 K/mm3 (4.0-10.0)
[2018-06-11 08:28] LABS: ANION GAP 9 MMOL/L (8-16); BLOOD UREA NITROGEN 14 mg/dL (7-18); CALCIUM 8.4 mg/dL (8.5-10.1); CHLORIDE 105 mmol/L (98-107); CO2 27 mmol/L (21-32); CREATININE 0.6 mg/dL (0.55-1.3); GLUCOSE,RANDOM 137 mg/dL (74-106); SODIUM 141 mmol/L (136-145)
[2018-06-11 08:52] LABS: POTASSIUM 2.9 mmol/L (3.5-5.1)
[2018-06-11] MEDS ORDERED: POTASSIUM CHLORIDE TABS 20 MEQ TABLET.ER (FP) PO ONE (09:54)
[2018-06-11] MEDS: MECLIZINE HCL 12.5 MG TABLET PO SCH (10:11)
[2018-06-11] MEDS: OLANZapine 10 MG TABLET PO SCH ×2 (10:12→22:34)
[2018-06-11] MEDS: KCL 10 MEQ IVPB 10 MEQ/100 ML INFUS.BAG IVPB SCH ×3 (10:13→17:17)
[2018-06-11] MEDS: THIAMINE HCL 200 MG/2 ML VIAL IVPB SCH (10:13)
[2018-06-11] MEDS: COSOPT OS SCH ×2 (10:14→22:45)
[2018-06-11] MEDS: D5-1/2NS+10 MEQ KCL - 10 MEQ/1,000 ML INFUS.BAG IV SCH ×2 (10:15→22:33)
[2018-06-11] MEDS: POLYETHYLENE GLYCOL 3350 119 GM BTL PO SCH (10:16)
--- NOTE | 2018-06-11 14:39 | PN ---
Physical Exam: SUBJECTIVE: Patient seen and examined at bedside this morning. No acute events overnight. This morning, patient is lying comfortably in bed, and able to converse coherently in Macedonian. He reports feeling well and denies any fever, chills, chest pain, shortness of breath, abdominal pain, diarrhea. Mar catheter draining dark yellow urine with a small amount of blood on the bag. OBJECTIVE: Vital Signs Temperature 97.9 F 06/11/18 12:00 Pulse Rate 80 06/11/18 12:00 Respiratory Rate 06/11/18 12:00 Blood Pressure 149/97 06/11/18 12:00 O2 Sat by Pulse Oximetry (%) 94 L 06/10/18 22:00 GENERAL: The patient is awake,alert, oriented to person and place, in no acute distress. HEAD: Normal with no signs of trauma. EYES: sclera anicteric, conjunctiva clear. 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 LUNGS: Breath sounds equal, clear to auscultation bilaterally. HEART: Regular rate and rhythm, S1, S2 +holosytolic murmur ABDOMEN: Soft, nontender, nondistended, normoactive bowel sounds. EXTREMITIES: 2+ pulses, warm, well-perfused, no edema. NEUROLOGICAL:Patient is awake, alert, answers questions, follows commands PSYCH: Normal mood, normal affect. SKIN: Warm, dry, normal turgor, no rashes or lesions noted Laboratory Results - last 24 hr 06/11/18 06/11/18 06:30 06:30 WBC 7.8 RBC 4.63 Hgb 14.0 Hct 41.1 MCV 88.8 MCH 30.2 MCHC 34.0 RDW 13.4 Plt Count 253 MPV 8.1 Absolute Neuts (auto) 5.7 Neutrophils % 73.1 Lymphocytes % 12.2 D Monocytes % 10.7 H Eosinophils % 3.6 Basophils % 0.4 Nucleated RBC % 0 Sodium 141 Potassium 2.9 L* Chloride 105 Carbon Dioxide 27 Anion Gap 9 BUN 14 Creatinine 0.6 Creat Clearance w eGFR 129.31 Random Glucose 137 H Calcium 8.4 L Active Medications Generic Name Dose Route Start Last Admin Trade Name Freq PRN Reason Stop Dose Admin Docusate Sodium 100 mg 06/06/18 15:06 Colace - PO Q12H PRN CONSTIPATION Potassium Chloride/Dextrose/Sod Cl 10 meq in 1,000 mls @ 100 mls/hr 06/10/18 10:00 06/11/18 10:15 D5-1/2ns+10 Meq Kcl - IV 100 mls/hr ASDIR THIAGO Administration Lorazepam 0.5 mg 06/10/18 09:50 06/10/18 10:57 Ativan Injection - IVPUSH 0.5 mg Q8H PRN Administration AGITATION Meclizine HCl 12.5 mg 06/02/18 10:00 06/11/18 10:11 Antivert - PO 12.5 mg DAILY THIAGO Administration Metoprolol Succinate 50 mg 06/02/18 10:00 06/11/18 10:11 Toprol Xl - PO 50 mg DAILY THIAGO Administration Cosopt Pf( 1 each 06/03/18 22:00 06/11/18 10:14 Dorzolamide/Timolol/ OS 1 each Pf [ Eye Drops] Pt's BID THIAGO Administration Own Olanzapine 10 mg 06/06/18 22:00 06/11/18 10:12 Zyprexa - PO 10 mg BID THIAGO Administration Polyethylene Glycol 17 gm 06/07/18 10:00 06/11/18 10:16 Miralax (For Daily Use) - PO 17 grams DAILY THIAGO Administration Tamsulosin HCl 0.4 mg 06/12/18 08:30 Flomax - PO DAILY@0830 THIAGO Thiamine HCl 200 mg 06/08/18 19:30 06/11/18 10:13 Vitamin B1 Injection - IVPB 200 mg DAILY THIAGO Administration -Head CT - no acute intracranial pathology -Brain MRI - Very limited exam. Moderate volume loss and ventricular dilatation. A repeat/follow up MRI of the brain is needed with the patient's condition permits for further evaluation ASSESSMENT/PLAN: Patient is an 83 year old male with past medical history of CAD s/p CABG (2002) , [place] with stents, HTN, diverticulitis, who was brought in by due to worsening combativeness, confusion and hallucinations that started 1 week ago. 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 Ladd) consulted. Recommendations appreciated. -MRI brain done, significant motion artifact but no acute changes, no significant acute process -would benefit from short term rehab -no objection to d/c planning -Psychiatry (Dr. Mao) consulted. Recommendations appreciated -Discontinue Risperidone and Seroquel -Zyprexa 10mg PO BID for aggression and hallucinations -Physical therapy #AMAYA 2/2 obstructive uropathy: resolved -Cr 1.5 yesterday -Bladder scan >1000cc, urine drained -Mar cath placed -Cr today 0.6 today -Renal US ordered -Urology (Dr. Rutherford) consulted. #Hypokalemia -K 2.9 today -Continue IV 1/2NS-10meq KCl @100cc/hr -KCL PO and IV given -will continue to monitor #Elevated T.bili: stable -RUQ ultrasound - limited study. Liver, GB and pancreas can not be visualized #LE edema: resolved -Amlodipine held. BP currently controlled -LE US negative for DVT -Knee xray: degenerative changes, no acute process #HTN -Lisinopril 20mg daily on hold in light of recent AMAYA -Metoprolol 50mg daily -Amlodipine on hold -May give additional Metoprolol PRN #CAD -Continue ASA 81 mg daily #BPPV -Continue home Meclizine #FEN -Continue IV 1/2NS-10meq KCl @100cc/hr -Routine bmp monitoring -Dysphagia puree diet #Prophylaxis -Heparin 5000units sq BID #Disposition -full code -Family undecided at this time if they would want SNF or home. Patient has not walked with PT at this time. Visit type - Emergency Visit Emergency Visit: Yes ED Registration Date: 06/01/18 Care time: The patient presented to the Emergency Department on the above date and was hospitalized for further evaluation of their emergent condition. - New Patient This patient is new to me today: No - Critical Care Critical Care patient: No
[2018-06-11] MEDS ORDERED: PT OWN MED DRAWER 7, Y5N ONE (20:53)
[2018-06-12] MEDS: D5-1/2NS+10 MEQ KCL - 10 MEQ/1,000 ML INFUS.BAG IV SCH (03:27)
[2018-06-12 07:27] LABS: HEMATOCRIT 40.8 % (35.4-49); HEMOGLOBIN 14.1 GM/dL (11.7-16.9); MCH 30.4 pg (25.7-33.7); MCHC 34.6 g/dl (32.0-35.9); MEAN CELL VOLUME 87.8 fl (80-96); MEAN PLT VOLUME 7.9 fl (7.5-11.1); PLATELET COUNT 265 K/MM3 (134-434); RBC 4.65 M/mm3 (4.00-5.60)
[2018-06-12 07:28] LABS: ANION GAP 5 MMOL/L (8-16); BLOOD UREA NITROGEN 13 mg/dL (7-18); CALCIUM 8.1 mg/dL (8.5-10.1); CHLORIDE 106 mmol/L (98-107); CO2 29 mmol/L (21-32); CREATININE 0.6 mg/dL (0.55-1.3); GLUCOSE,RANDOM 109 mg/dL (74-106); MAGNESIUM 1.7 mg/dL (1.8-2.4); PHOSPHOROUS 2.4 mg/dL (2.5-4.9); POTASSIUM 3.8 mmol/L (3.5-5.1); SODIUM 140 mmol/L (136-145)
[2018-06-12] MEDS ORDERED: POTASSIUM CHLORIDE TABS 20 MEQ TABLET.ER (FP) PO ONE (07:44)
[2018-06-12] MEDS ORDERED: TAMSULOSIN HCL 0.4 MG CAP PO SCH (08:30)
[2018-06-12] MEDS ORDERED: MAGNESIUM OXIDE 400 MG TABLET (FP) PO ONE (08:30)
--- NOTE | 2018-06-12 09:03 | PN ---
Progress Note (short form) - Note Progress Note: Neurology CHIEF COMPLAINT: AMS, Hallucinations Per Spouse PCP: Dr Vergara HISTORY OF PRESENT ILLNESS: Pt is an 83 y/o gentleman with a significant past medical history of CAD s/p CABG (tipple bypass) (2002), [place]/ st[place], HTN, diverticulitis who was BIBA to [facility] due to increasing altered mental status and combativeness. Per at bedside and daughter in law(discussed over phone), pt has been exhibiting a rapid mental decline for approximately 5 weeks. endorses that 5 weeks ago, pt was admitted to [facility] due to diverticulitis. Pt was discharged on Cipro and Metronidazole. Furthermore, pt has had decreased PO intake for the last 3-4 days prior to admission. Additionally, pt has been hallucinating for the past few weeks, seeing " children in the house" as well as having conversations with people who aren't there. Spouse also states that pt has had increased lower extremity swelling for the past 5 days. Denies chest pain, sob, nausea/vomiting, or urinary issues. Spouse states that pt's two brothers recently this year and this has made pt depressed. Patient admitted for further evaluation and CT head completed, reviewed and discussed with , no acute changes. Psych recommended Zyprexa and patient continues to improve. MRI brain completed, significant motion artifiact but no acute changes noted and specifically no mass lesions or infarcts seen. Does not show of significant acute process. Weekend notes reviewed, not aggitated today. Calm and able to tell me he's in the hospital. Able to state he's in [place]. Active Medications Docusate Sodium (Colace -) 100 mg PO Q12H PRN PRN Reason: CONSTIPATION Potassium Chloride/Dextrose/Sod Cl (D5-1/2ns+10 Meq Kcl -) 10 meq in 1,000 mls @ 50 mls/hr IV [facility] Last Admin: 06/12/18 03:27 Dose: 50 mls/hr Meclizine HCl (Antivert -) 12.5 mg PO DAILY [facility] Last Admin: 06/11/18 10:11 Dose: 12.5 mg Metoprolol Succinate (Toprol Xl -) 50 mg PO DAILY [facility] Last Admin: 06/11/18 10:11 Dose: 50 mg Cosopt Pf( Dorzolamide/Timolol/Pf [ Eye Drops] Pt's Own 1 each OS BID [facility] Last Admin: 06/11/18 22:45 Dose: 1 each Olanzapine (Zyprexa -) 10 mg PO BID [facility] Last Admin: 06/11/18 22:34 Dose: 10 mg Polyethylene Glycol (Miralax (For Daily Use) -) 17 gm PO DAILY [facility] Last Admin: 06/11/18 10:16 Dose: 17 grams Tamsulosin HCl (Flomax -) 0.4 mg PO DAILY@0830 [facility] Thiamine HCl (Vitamin B1 Injection -) 200 mg IVPB DAILY [facility] Last Admin: 06/11/18 10:13 Dose: 200 mg PHYSICAL EXAMINATION Vital Signs Period Temp Pulse Resp BP Sys/Schneider Pulse Ox Last 24 Hr 97.9 F-98.2 F 76-80 18-20 149-155/79-97 96 GENERAL: AAOx1 HEAD: AT/NC EYES: Left eye Corneal Clouding. EARS, NOSE, THROAT: Dry mucous membranes NECK: Supple, No JVD LUNGS: CTAB HEART: 2/6 DASHA. ABDOMEN: NDNT No HSM No guarding or rigidity LOWER EXTREMITIES: B/L lower extremity edema SKIN: No rashes or lesions appreciated \\ Neuro: CN intact, moves all extremities, sensory intact, gait deferred, calm and cooperative CBCD WBC 8.0 K/mm3 (4.0-10.0) 06/12/18 06:40 RBC 4.65 M/mm3 (4.00-5.60) 06/12/18 06:40 Hgb 14.1 GM/dL (11.7-16.9) 06/12/18 06:40 Hct 40.8 % (35.4-49) 06/12/18 06:40 MCV 87.8 fl (80-96) 06/12/18 06:40 MCHC 34.6 g/dl (32.0-35.9) 06/12/18 06:40 RDW 13.0 % (11.9-15.9) 06/12/18 06:40 Plt Count 265 K/MM3 (134-434) 06/12/18 06:40 MPV 7.9 fl (7.5-11.1) 06/12/18 06:40 CMP Sodium 140 mmol/L (136-145) 06/12/18 06:40 Potassium 3.8 mmol/L (3.5-5.1) 06/12/18 06:40 Chloride 106 mmol/L (98-107) 06/12/18 06:40 Carbon Dioxide 29 mmol/L (21-32) 06/12/18 06:40 Anion Gap 5 MMOL/L (8-16) L 06/12/18 06:40 BUN 13 mg/dL (7-18) 06/12/18 06:40 Creatinine 0.6 mg/dL (0.55-1.3) 06/12/18 06:40 Creat Clearance w eGFR 129.31 (>60) 06/12/18 06:40 Random Glucose 109 mg/dL (74-106) H 06/12/18 06:40 Calcium 8.1 mg/dL (8.5-10.1) L 06/12/18 06:40 Total Bilirubin 1.3 mg/dL (0.2-1) H 06/10/18 08:30 AST 22 U/L (15-37) 06/10/18 08:30 ALT 19 U/L (13-61) 06/10/18 08:30 Alkaline Phosphatase 65 U/L (45-117) 06/10/18 08:30 Total Protein 6.4 g/dl (6.4-8.2) 06/10/18 08:30 Albumin 2.8 g/dl (3.4-5.0) L 06/10/18 08:30 CARDIAC ENZYMES Creatine Kinase 149 U/L (26-308) 06/01/18 17:45 Troponin I < 0.02 ng/ml (0.00-0.05) 06/01/18 17:45 ASSESSMENT/PLAN: Pt is an 83 y/o gentleman with a significant past medical history of CAD s/p CABG (tipple bypass) (2002), [place]/ st[place], HTN, diverticulitis who was BIBA to [facility] due to increasing altered mental status and combativeness. Per at bedside and daughter in law(discussed over phone), pt has been exhibiting a rapid mental decline for approximately 5 weeks. endorses that 5 weeks ago, pt was admitted to [facility] due to diverticulitis. Pt was discharged on Cipro and Metronidazole. Furthermore, pt has had decreased PO intake for the last 3-4 days. Additionally, pt has been hallucinating for the past few weeks, seeing " children in the house" as well as having conversations with people who aren't there. Spouse also states that pt has had increased lower extremity swelling for the past 5 days. Denies chest pain, sob, nausea/vomiting, or urinary issues. Spouse states that pt's two brothers recently this year and this has made pt depressed. Patient admitted for further evaluation and CT head completed, reviewed and discussed with , no acute changes. He is more awake and interactive this AM, though still confused, sachi vest in place. Getting IV fluids, not combative but not following commands either. Psych note reviewed and respiradol d/mariya, patient put on Zyprexa. UA negative, infectious work up not been revealing. Likely psych process given recent stressor and good response to Zyprexa noted. CT head negative, Reorientation as able. Continue hydration. Monitor BP, maintain normotensive range. More disorganized off Zyprexa and was restarted. Improved appearing this AM, not combative. MRI brain completed, significant motion artifiact but no acute changes noted and specifically no mass lesions or infarcts seen. D/c planning, placement per protective services case worker/family. Not on restraints and is calm at this time without aggitation. Knows he's in the hospital and in [place]. Improved with Zyprexa.
--- NOTE | 2018-06-12 09:17 | CON.GU ---
Consult Consult Specialty:: urology Reason for Consultation:: urinary retention - History of Present Illness Chief Complaint: urinary retention History of Present Illness: Pateint is an 83 year old male with dementia and multiple medical problems on flomax 0.4 mg daily for bph. The patient is unable to give a history. The patient was found to be in urinary retention and had a cantu catheter placed. - History Source History Provided By: Medical Record, Caregiver Limitations to Obtaining History: Dementia - Smoking History Smoking history: Current every day smoker - Social History Usual Living Arrangement: With Spouse Home Medications - Allergies Allergies/Adverse Reactions: Allergies Allergy/AdvReac Type Severity Reaction Status Date / Time Penicillins Allergy Verified 06/01/18 16:22 - Home Medications Home Medications: Ambulatory Orders Amlodipine Besylate 5 mg PO DAILY 06/01/18 Aspirin [ASA -] 81 mg PO DAILY 06/01/18 Lisinopril 20 mg PO DAILY 06/01/18 Meclizine HCl 12.5 mg PO DAILY 06/01/18 Metoprolol Succinate 50 mg PO DAILY 06/01/18 Dorzolamide/Timolol/Pf [Cosopt Pf Eye Drops] 1 each OS BID 06/03/18 Simvastatin 20 mg PO HS 06/05/18 Docusate Sodium [Colace -] 100 mg PO Q12H PRN capsule 06/09/18 Olanzapine [ZyPREXA -] 10 mg PO BID tablet 06/09/18 Polyethylene Glycol 3350 [Miralax 119 gm Btl -] 17 gm PO DAILY bottle 06/09/18 Physical Exam- Vital Signs: Vital Signs Temperature 98.2 F 06/12/18 06:00 Pulse Rate 76 06/12/18 06:00 Respiratory Rate 18 06/12/18 06:00 Blood Pressure 155/79 06/12/18 06:00 O2 Sat by Pulse Oximetry (%) 96 06/11/18 21:00 Constitutional: Yes: No Distress, [place], Cachectic Eyes: Yes: WNL, Conjunctiva Clear, EOM Intact HENT: Yes: WNL, Atraumatic, Normocephalic Neck: Yes: WNL, Supple, Trachea Midline Respiratory: Yes: Regular Gastrointestinal: Yes: WNL, Normal Bowel Sounds, Soft Renal/: Yes: WNL, Cantu Present Kidneys: Yes: WNL Pelvis: Yes: WNL, Bladder Non Palpable Testicles: Yes: WNL Scrotum: Yes: WNL Penis: Yes: WNL Prostate Exam: Yes: Swollen, Symmetrical Labs: CBC, BMP 06/12/18 06:40 06/12/18 06:40 Imaging - Results Ultrasound: Report Reviewed Assessment/Plan impression bph urinary retention plan increase flomax to 0.8 mg daily physical therapy d/c cantu after 24-48 hours for trial of voiding
[2018-06-12] MEDS ORDERED: PT OWN MED DRAWER 7, Y5N ONE (09:22)
[2018-06-12] MEDS: OLANZapine 10 MG TABLET PO SCH ×2 (09:30→21:05)
[2018-06-12] MEDS: THIAMINE HCL 200 MG/2 ML VIAL IVPB SCH (09:31)
[2018-06-12] MEDS: MECLIZINE HCL 12.5 MG TABLET PO SCH (09:31)
[2018-06-12] MEDS: COSOPT OS SCH ×2 (09:32→21:08)
[2018-06-12] MEDS: POLYETHYLENE GLYCOL 3350 119 GM BTL PO SCH (09:33)
--- NOTE | 2018-06-12 14:31 | PN ---
Physical Exam: SUBJECTIVE: Patient seen and examined at bedside. Remains comfortable. OBJECTIVE: Vital Signs Period Temp Pulse Resp BP Sys/Schneider Pulse Ox Last 24 Hr 98.0 F-98.2 F 76-80 18-20 145-155/79-100 96 GENERAL: The patient is AAOX 2 HEAD: Normal with no signs of trauma. EYES: Right ptosis. ENT: Ears normal, nares patent, oropharynx clear without exudates, moist mucous membranes. NECK: Trachea midline, full range of motion, supple. LUNGS: Breath sounds equal, clear to auscultation bilaterally, no wheezes, no crackles, no accessory muscle use. HEART: Regular rate and rhythm, S1, S2 without murmur, rub or gallop. ABDOMEN: Soft, nontender, nondistended, normoactive bowel sounds, no guarding, no rebound, no hepatosplenomegaly, no masses. EXTREMITIES: 2+ pulses, warm, well-perfused, no edema. NEUROLOGICAL: No FND gait not observed. PSYCH: No AGITAION at this time. SKIN: Warm, dry, normal turgor, no rashes or lesions noted Laboratory Results - last 24 hr 06/12/18 06/12/18 06:40 06:40 WBC 8.0 RBC 4.65 Hgb 14.1 Hct 40.8 MCV 87.8 MCH 30.4 MCHC 34.6 RDW 13.0 Plt Count 265 MPV 7.9 Sodium 140 Potassium 3.8 Chloride 106 Carbon Dioxide 29 Anion Gap 5 L BUN 13 Creatinine 0.6 Creat Clearance w eGFR 129.31 Random Glucose 109 H Calcium 8.1 L Phosphorus 2.4 L Magnesium 1.7 L Active Medications Generic Name Dose Route Start Last Admin Trade Name Freq PRN Reason Stop Dose Admin Docusate Sodium 100 mg 06/06/18 15:06 Colace - PO Q12H PRN CONSTIPATION Potassium Chloride/Dextrose/Sod Cl 10 meq in 1,000 mls @ 50 mls/hr 06/11/18 18 :19 06/12/18 03:27 D5-1/2ns+10 Meq Kcl - IV 50 mls/hr ASDIR THIAGO Administration Meclizine HCl 12.5 mg 06/02/18 10:00 06/12/18 09:31 Antivert - PO 12.5 mg DAILY THIAGO Administration Metoprolol Succinate 50 mg 06/02/18 10:00 06/12/18 09:33 Toprol Xl - PO 50 mg DAILY THIAGO Administration Cosopt Pf( 1 each 06/03/18 22:00 06/12/18 09:32 Dorzolamide/Timolol/ OS 1 each Pf [ Eye Drops] Pt's BID THIAGO Administration Own Olanzapine 10 mg 06/06/18 22:00 06/12/18 09:30 Zyprexa - PO 10 mg BID THIAGO Administration Polyethylene Glycol 17 gm 06/07/18 10:00 06/12/18 09:33 Miralax (For Daily Use) - PO 17 grams DAILY THIAGO Administration Tamsulosin HCl 0.8 mg 06/13/18 08:30 Flomax - PO DAILY@0830 THIAGO Thiamine HCl 200 mg 06/08/18 19:30 06/12/18 09:31 Vitamin B1 Injection - IVPB 200 mg DAILY THIAGO Administration ASSESSMENT/PLAN: Patient is an 83 year old male with past medical history of CAD s/p CABG (2002) , [place] with stents, HTN, diverticulitis, who was brought in by due to worsening combativeness, confusion and hallucinations that started 1 week ago. 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 Ladd) Recs appreciated. -MRI brain done, significant motion artifact but no acute changes, no significant acute process -would benefit from short term rehab -Psychiatry (Dr. Mao) >>> Discontinue Risperidone and Seroquel , Zyprexa 10mg PO BID for aggression and hallucinations -Physical therapy #AMAYA 2/2 obstructive uropathy: 2/2 BPH / Fecal impaction. -Cr 1.5 >>> 0.6 since cantu. -Bladder scan >1000cc, urine drained - would try TOV given fecal impaction might play a role. -Urology (Dr. Rutherford) eval noted. #Hypokalemia -K 2.9 >>> 3.8 today -KCL PO and IV given -will continue to monitor #Elevated T.bili: stable -RUQ ultrasound - limited study. Liver, GB and pancreas can not be visualized #LE edema: resolved -Amlodipine held. BP currently controlled -LE US negative for DVT -Knee xray: degenerative changes, no acute process #HTN -Lisinopril 20mg daily on hold in light of recent AMAYA -Metoprolol 50mg daily -Amlodipine on hold -May give additional Metoprolol PRN #CAD -Continue ASA 81 mg daily #BPPV -Continue home Meclizine #FEN -Continue IV 1/2NS-10meq KCl @100cc/hr -Routine bmp monitoring -Dysphagia puree diet #Prophylaxis -Heparin 5000units sq BID #Disposition -full code -Family decided would go to SNF . PT eval please. Plan d/w the the family at bedside. Visit type - Emergency Visit Emergency Visit: Yes ED Registration Date: 06/01/18 Care time: The patient presented to the Emergency Department on the above date and was hospitalized for further evaluation of their emergent condition. - New Patient This patient is new to me today: Yes Date on this admission: 06/12/18 - Critical Care Critical Care patient: No - Discharge Referral Referred to [facility] Med [facility] No
--- NOTE | 2018-06-12 16:26 | PN ---
Physical Exam: SUBJECTIVE: Patient seen and examined at bedside this morning. No acute events overnight. Patient is awake and alert this morning, talking coherently in Frisian. He denies fever, chills chest pain, shortness of breath, abdominal pain. OBJECTIVE: Vital Signs Temperature 98.1 F 06/12/18 09:00 Pulse Rate 76 06/12/18 09:00 Respiratory Rate 18 06/12/18 09:00 Blood Pressure 145/100 06/12/18 09:00 O2 Sat by Pulse Oximetry (%) 96 06/11/18 21:00 GENERAL: The patient is awake,alert, oriented to person and place, in no acute distress. HEAD: Normal with no signs of trauma. EYES: sclera anicteric, conjunctiva clear. 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 LUNGS: Breath sounds equal, clear to auscultation bilaterally. HEART: Regular rate and rhythm, S1, S2 +holosytolic murmur ABDOMEN: Soft, nontender, nondistended, normoactive bowel sounds. EXTREMITIES: 2+ pulses, warm, well-perfused, no edema. NEUROLOGICAL:Patient is awake, alert, answers questions, follows commands PSYCH: Normal mood, normal affect. SKIN: Warm, dry, normal turgor, no rashes or lesions noted Laboratory Results - last 24 hr 06/12/18 06/12/18 06:40 06:40 WBC 8.0 RBC 4.65 Hgb 14.1 Hct 40.8 MCV 87.8 MCH 30.4 MCHC 34.6 RDW 13.0 Plt Count 265 MPV 7.9 Sodium 140 Potassium 3.8 Chloride 106 Carbon Dioxide 29 Anion Gap 5 L BUN 13 Creatinine 0.6 Creat Clearance w eGFR 129.31 Random Glucose 109 H Calcium 8.1 L Phosphorus 2.4 L Magnesium 1.7 L Active Medications Generic Name Dose Route Start Last Admin Trade Name Freq PRN Reason Stop Dose Admin Docusate Sodium 100 mg 06/06/18 15:06 Colace - PO Q12H PRN CONSTIPATION Potassium Chloride/Dextrose/Sod Cl 10 meq in 1,000 mls @ 50 mls/hr 06/11/18 18 :19 06/12/18 03:27 D5-1/2ns+10 Meq Kcl - IV 50 mls/hr ASDIR THIAGO Administration Meclizine HCl 12.5 mg 06/02/18 10:00 06/12/18 09:31 Antivert - PO 12.5 mg DAILY THIAGO Administration Metoprolol Succinate 50 mg 06/02/18 10:00 06/12/18 09:33 Toprol Xl - PO 50 mg DAILY THIAGO Administration Cosopt Pf( 1 each 06/03/18 22:00 06/12/18 09:32 Dorzolamide/Timolol/ OS 1 each Pf [ Eye Drops] Pt's BID THIAGO Administration Own Olanzapine 10 mg 06/06/18 22:00 06/12/18 09:30 Zyprexa - PO 10 mg BID THIAGO Administration Polyethylene Glycol 17 gm 06/07/18 10:00 06/12/18 09:33 Miralax (For Daily Use) - PO 17 grams DAILY THIAGO Administration Tamsulosin HCl 0.8 mg 06/13/18 08:30 Flomax - PO DAILY@0830 THIAGO Thiamine HCl 200 mg 06/08/18 19:30 06/12/18 09:31 Vitamin B1 Injection - IVPB 200 mg DAILY THIAGO Administration -Head CT - no acute intracranial pathology -Brain MRI - Very limited exam. Moderate volume loss and ventricular dilatation. A repeat/follow up MRI of the brain is needed with the patient's condition permits for further evaluation ASSESSMENT/PLAN: Patient is an 83 year old male with past medical history of CAD s/p CABG (2002) , [place] with stents, HTN, diverticulitis, who was brought in by due to worsening combativeness, confusion and hallucinations that started 1 week ago. 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 Ladd) consulted. Recommendations appreciated. -MRI brain done, significant motion artifact but no acute changes, no significant acute process -would benefit from short term rehab -no objection to d/c planning -Psychiatry (Dr. Mao) consulted. Recommendations appreciated -Discontinue Risperidone and Seroquel -Zyprexa 10mg PO BID for aggression and hallucinations -Physical therapy #AMAYA 2/2 obstructive uropathy: resolved -Cr today 0.6 today -Renal US : bilateral nephrolithiasis, bilateral renal cysts, no evidence of hydronephrosis or obstructive uropathy -Urology (Dr. Rutherford) consulted. -d/c cantu and trial of voiding -Increase Tamsulosin to 0.8mg daily #BPH -Tamsulosin 0.8mg daily #Hypokalemia: resolved -K 3.8 -Continue IV D5-1/2NS +10meq KCl @50cc/hr -will continue to monitor #Elevated T.bili: stable -RUQ ultrasound - limited study. Liver, GB and pancreas can not be visualized #LE edema: resolved -Amlodipine held. BP currently controlled -LE US negative for DVT -Knee xray: degenerative changes, no acute process #HTN -Lisinopril 20mg daily on hold in light of recent AMAYA -Metoprolol 50mg daily -Amlodipine on hold -May give additional Metoprolol PRN #CAD -Continue ASA 81 mg daily #BPPV -Continue home Meclizine #FEN -Continue IV 1/2NS-10meq KCl @50cc/hr -Routine bmp monitoring -Dysphagia puree diet #Prophylaxis -Heparin 5000units sq BID #Disposition -full code -Plan for SNF placement while awaiting medicare for [employer]. Visit type - Emergency Visit Emergency Visit: Yes ED Registration Date: 06/01/18 Care time: The patient presented to the Emergency Department on the above date and was hospitalized for further evaluation of their emergent condition. - New Patient This patient is new to me today: No - Critical Care Critical Care patient: No
[2018-06-13] MEDS: D5-1/2NS+10 MEQ KCL - 10 MEQ/1,000 ML INFUS.BAG IV SCH ×2 (01:30→22:16)
[2018-06-13 07:24] LABS: ANION GAP 10 MMOL/L (8-16); BLOOD UREA NITROGEN 13 mg/dL (7-18); CALCIUM 8.4 mg/dL (8.5-10.1); CHLORIDE 104 mmol/L (98-107); CO2 23 mmol/L (21-32); CREATININE 0.6 mg/dL (0.55-1.3); GLUCOSE,RANDOM 105 mg/dL (74-106); MAGNESIUM 1.9 mg/dL (1.8-2.4); PHOSPHOROUS 2.2 mg/dL (2.5-4.9); POTASSIUM 3.7 mmol/L (3.5-5.1); SODIUM 137 mmol/L (136-145)
[2018-06-13] MEDS ORDERED: NAPH,MB-DB/K PH,MBDB POWDER PACKET PO ONE (07:45)
--- NOTE | 2018-06-13 08:57 | PN ---
Progress Note (short form) - Note Progress Note: Neurology CHIEF COMPLAINT: AMS, Hallucinations Per Spouse PCP: Dr Vergara HISTORY OF PRESENT ILLNESS: Pt is an 83 y/o gentleman with a significant past medical history of CAD s/p CABG (tipple bypass) (2002), [place] w/ st[place], HTN, diverticulitis who was BIBA to [facility] due to increasing altered mental status and combativeness. Per at bedside and daughter in law(discussed over phone), pt has been exhibiting a rapid mental decline for approximately 5 weeks. endorses that 5 weeks ago, pt was admitted to [facility] due to diverticulitis. Pt was discharged on Cipro and Metronidazole. Furthermore, pt has had decreased PO intake for the last 3-4 days prior to admission. Additionally, pt has been hallucinating for the past few weeks, seeing " children in the house" as well as having conversations with people who aren't there. Spouse also states that pt has had increased lower extremity swelling for the past 5 days. Denies chest pain, sob, nausea/vomiting, or urinary issues. Spouse states that pt's two brothers recently this year and this has made pt depressed. Patient admitted for further evaluation and CT head completed, reviewed and discussed with , no acute changes. Psych recommended Zyprexa and patient continues to improve. MRI brain completed, significant motion artifiact but no acute changes noted and specifically no mass lesions or infarcts seen. Does not show of significant acute process. Zyprexa has been very helpful in treatment, no new neurologic events. Active Medications Docusate Sodium (Colace -) 100 mg PO Q12H PRN PRN Reason: CONSTIPATION Potassium Chloride/Dextrose/Sod Cl (D5-1/2ns+10 Meq Kcl -) 10 meq in 1,000 mls @ 50 mls/hr IV ASDIR [facility] Last Admin: 06/13/18 01:30 Dose: 50 mls/hr Meclizine HCl (Antivert -) 12.5 mg PO DAILY [facility] Last Admin: 06/12/18 09:31 Dose: 12.5 mg Metoprolol Succinate (Toprol Xl -) 50 mg PO DAILY [facility] Last Admin: 06/12/18 09:33 Dose: 50 mg Cosopt Pf( Dorzolamide/Timolol/Pf [ Eye Drops] Pt's Own 1 each OS BID [facility] Last Admin: 06/12/18 21:08 Dose: 1 each Olanzapine (Zyprexa -) 10 mg PO BID [facility] Last Admin: 06/12/18 21:05 Dose: 10 mg Polyethylene Glycol (Miralax (For Daily Use) -) 17 gm PO DAILY [facility] Last Admin: 06/12/18 09:33 Dose: 17 grams Tamsulosin HCl (Flomax -) 0.8 mg PO DAILY@0830 [facility] Thiamine HCl (Vitamin B1 Injection -) 200 mg IVPB DAILY [facility] Last Admin: 06/12/18 09:31 Dose: 200 mg PHYSICAL EXAMINATION Vital Signs Period Temp Pulse Resp BP Sys/Schneider Pulse Ox Last 24 Hr 98.1 F-98.5 F 76-99 18-21 135-145/75-100 97 GENERAL: AAOx1 HEAD: AT/NC EYES: Left eye Corneal Clouding. EARS, NOSE, THROAT: Dry mucous membranes NECK: Supple, No JVD LUNGS: CTAB HEART: 2/6 DASHA. ABDOMEN: NDNT No HSM No guarding or rigidity LOWER EXTREMITIES: B/L lower extremity edema SKIN: No rashes or lesions appreciated \\ Neuro: CN intact, moves all extremities, sensory intact, gait deferred, calm and cooperative CBCD WBC 8.0 K/mm3 (4.0-10.0) 06/12/18 06:40 RBC 4.65 M/mm3 (4.00-5.60) 06/12/18 06:40 Hgb 14.1 GM/dL (11.7-16.9) 06/12/18 06:40 Hct 40.8 % (35.4-49) 06/12/18 06:40 MCV 87.8 fl (80-96) 06/12/18 06:40 MCHC 34.6 g/dl (32.0-35.9) 06/12/18 06:40 RDW 13.0 % (11.9-15.9) 06/12/18 06:40 Plt Count 265 K/MM3 (134-434) 06/12/18 06:40 MPV 7.9 fl (7.5-11.1) 06/12/18 06:40 CMP Sodium 137 mmol/L (136-145) 06/13/18 06:00 Potassium 3.7 mmol/L (3.5-5.1) 06/13/18 06:00 Chloride 104 mmol/L (98-107) 06/13/18 06:00 Carbon Dioxide 23 mmol/L (21-32) 06/13/18 06:00 Anion Gap 10 MMOL/L (8-16) 06/13/18 06:00 BUN 13 mg/dL (7-18) 06/13/18 06:00 Creatinine 0.6 mg/dL (0.55-1.3) 06/13/18 06:00 Creat Clearance w eGFR 129.31 (>60) 06/13/18 06:00 Random Glucose 105 mg/dL (74-106) 06/13/18 06:00 Calcium 8.4 mg/dL (8.5-10.1) L 06/13/18 06:00 Total Bilirubin 1.3 mg/dL (0.2-1) H 06/10/18 08:30 AST 22 U/L (15-37) 06/10/18 08:30 ALT 19 U/L (13-61) 06/10/18 08:30 Alkaline Phosphatase 65 U/L (45-117) 06/10/18 08:30 Total Protein 6.4 g/dl (6.4-8.2) 06/10/18 08:30 Albumin 2.8 g/dl (3.4-5.0) L 06/10/18 08:30 CARDIAC ENZYMES Creatine Kinase 149 U/L (26-308) 06/01/18 17:45 Troponin I < 0.02 ng/ml (0.00-0.05) 06/01/18 17:45 ASSESSMENT/PLAN: Pt is an 83 y/o gentleman with a significant past medical history of CAD s/p CABG (tipple bypass) (2002), [place] w/ st[place], HTN, diverticulitis who was BIBA to [facility] due to increasing altered mental status and combativeness. Per at bedside and daughter in law(discussed over phone), pt has been exhibiting a rapid mental decline for approximately 5 weeks. endorses that 5 weeks ago, pt was admitted to [facility] due to diverticulitis. Pt was discharged on Cipro and Metronidazole. Furthermore, pt has had decreased PO intake for the last 3-4 days. Additionally, pt has been hallucinating for the past few weeks, seeing " children in the house" as well as having conversations with people who aren't there. Spouse also states that pt has had increased lower extremity swelling for the past 5 days. Denies chest pain, sob, nausea/vomiting, or urinary issues. Spouse states that pt's two brothers recently this year and this has made pt depressed. Patient admitted for further evaluation and CT head completed, reviewed and discussed with , no acute changes. He is more awake and interactive this AM, though still confused, sachi vest in place. Getting IV fluids, not combative but not following commands either. Psych note reviewed and respiradol d/mariya, patient put on Zyprexa. UA negative, infectious work up not been revealing. Likely psych process given recent stressor and good response to Zyprexa noted. CT head negative, Reorientation as able. Continue hydration. Monitor BP, maintain normotensive range. More disorganized off Zyprexa and was restarted. Improved appearing this AM, not combative. MRI brain completed, significant motion artifiact but no acute changes noted and specifically no mass lesions or infarcts seen. D/c planning, placement per manager of case/family. Not on restraints and is calm at this time without aggitation. Knows he's in the hospital and in [place]. Improved with Zyprexa, should remain on it, unless otherwise indicated by psych. Continue monitor of mental status, reorientation as much as possible.
[2018-06-13] MEDS: THIAMINE HCL 200 MG/2 ML VIAL IVPB SCH (09:29)
[2018-06-13] MEDS: TAMSULOSIN HCL 0.4 MG CAP PO SCH (09:30)
[2018-06-13] MEDS: MECLIZINE HCL 12.5 MG TABLET PO SCH (09:32)
[2018-06-13] MEDS: COSOPT OS SCH ×2 (09:32→21:39)
[2018-06-13] MEDS: POLYETHYLENE GLYCOL 3350 119 GM BTL PO SCH (09:33)
[2018-06-13] MEDS: OLANZapine 10 MG TABLET PO SCH ×2 (09:34→21:39)
--- NOTE | 2018-06-13 13:12 | PN ---
Physical Exam: SUBJECTIVE: Patient seen and examined at bedside. REmains comfortable w/o any apparent distress. OBJECTIVE: Vital Signs Period Temp Pulse Resp BP Sys/Schneider Pulse Ox Last 24 Hr 98.4 F-98.5 F 97-104 20-21 135-140/75-94 97 GENERAL: The patient is AAOX2, AT BASELINE HEENT: Unremarkable. LUNGS: Breath sounds equal, clear to auscultation bilaterally, no wheezes, no crackles, no accessory muscle use. HEART: Regular rate and rhythm, S1, S2 without murmur, rub or gallop. ABDOMEN: Soft, nontender, nondistended, normoactive bowel sounds, no guarding, no rebound, no hepatosplenomegaly, no masses. EXTREMITIES: 2+ pulses, warm, well-perfused, no edema. NEUROLOGICAL: Normal speech, gait not observed. PSYCH: Normal mood, normal affect. NO AGITATION. SKIN: Warm, dry, normal turgor, no rashes or lesions noted Laboratory Results - last 24 hr 06/13/18 06:00 Sodium 137 Potassium 3.7 Chloride 104 Carbon Dioxide 23 Anion Gap 10 BUN 13 Creatinine 0.6 Creat Clearance w eGFR 129.31 Random Glucose 105 Calcium 8.4 L Phosphorus 2.2 L Magnesium 1.9 Active Medications Generic Name Dose Route Start Last Admin Trade Name Freq PRN Reason Stop Dose Admin Docusate Sodium 100 mg 06/06/18 15:06 Colace - PO Q12H PRN CONSTIPATION Potassium Chloride/Dextrose/Sod Cl 10 meq in 1,000 mls @ 50 mls/hr 06/11/18 18 :19 06/13/18 01:30 D5-1/2ns+10 Meq Kcl - IV 50 mls/hr ASDIR THIAGO Administration Meclizine HCl 12.5 mg 06/02/18 10:00 06/13/18 09:32 Antivert - PO 12.5 mg DAILY THIAGO Administration Metoprolol Succinate 50 mg 06/02/18 10:00 06/13/18 09:30 Toprol Xl - PO 50 mg DAILY THIAGO Administration Cosopt Pf( 1 each 06/03/18 22:00 06/13/18 09:32 Dorzolamide/Timolol/ OS 1 each Pf [ Eye Drops] Pt's BID THIAGO Administration Own Olanzapine 10 mg 06/06/18 22:00 06/13/18 09:34 Zyprexa - PO 10 mg BID THIAGO Administration Polyethylene Glycol 17 gm 06/07/18 10:00 06/13/18 09:33 Miralax (For Daily Use) - PO 17 grams DAILY THIAGO Administration Tamsulosin HCl 0.8 mg 06/13/18 08:30 06/13/18 09:30 Flomax - PO 0.8 mg DAILY@0830 THIAGO Administration Thiamine HCl 200 mg 06/08/18 19:30 06/13/18 09:29 Vitamin B1 Injection - IVPB 200 mg DAILY THIAGO Administration ASSESSMENT/PLAN: sagar is an 83 year old male with past medical history of CAD s/p CABG (2002), [place] with [place], HTN, diverticulitis, who was brought in by due to worsening combativeness, confusion and hallucinations that started 1 week ago. 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 Ladd) Recs appreciated. -MRI brain done, significant motion artifact but no acute changes, no significant acute process -would benefit from short term rehab - Discontinued Risperidone and Seroquel , as per psych. Zyprexa 10mg PO BID for aggression and hallucinations -Physical therapy #AMAYA 2/2 obstructive uropathy: 2/2 BPH / Fecal impaction. -Cr 1.5 >>> 0.6 since cantu. -Passed TOV yesterday. -Urology (Dr. Rutherford) eval noted. #Hypokalemia -K 2.9 >>> 3.7 today - stable. #Elevated T.bili: stable -RUQ ultrasound - limited study. Liver, GB and pancreas can not be visualized #LE edema: resolved -Amlodipine held. BP currently controlled -LE US negative for DVT -Knee xray: degenerative changes, no acute process #HTN -Lisinopril 20mg daily on hold in light of recent AMAYA -Metoprolol 50mg daily -Amlodipine on hold -May give additional Metoprolol PRN #CAD -Continue ASA 81 mg daily #BPPV -Continue home Meclizine #FEN -Dysphagia puree diet #Prophylaxis -Heparin 5000units sq BID #Disposition -full code -Family decided would go to SNF . Awaiting placement to SNF. Visit type - Emergency Visit Emergency Visit: Yes ED Registration Date: 04/18/19 Care time: The patient presented to the Emergency Department on the above date and was hospitalized for further evaluation of their emergent condition. - New Patient This patient is new to me today: No - Critical Care Critical Care patient: No - Discharge Referral Referred to [facility] No
--- NOTE | 2018-06-13 15:22 | PN ---
Physical Exam: SUBJECTIVE: Patient seen and examined at bedside this morning. No acute events overnight. Patient is sitting comfortably in bed. As per nursing, patient was able to void, clear yellow urine this morning. Denies fever, chills, headache, dizziness, chest pain, SOB, abdominal pain, urinary symptoms. OBJECTIVE: Vital Signs Temperature 98.7 F 06/13/18 14:36 Pulse Rate 107 H 06/13/18 14:36 Respiratory Rate 20 06/13/18 09:00 Blood Pressure 148/98 06/13/18 14:36 O2 Sat by Pulse Oximetry (%) 97 06/12/18 21:00 GENERAL: The patient is awake,alert, oriented to person and place, in no acute distress. HEAD: Normal with no signs of trauma. EYES: sclera anicteric, conjunctiva clear. 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 LUNGS: Breath sounds equal, clear to auscultation bilaterally. HEART: Regular rate and rhythm, S1, S2 +holosytolic murmur ABDOMEN: Soft, nontender, nondistended, normoactive bowel sounds. EXTREMITIES: 2+ pulses, warm, well-perfused, no edema. NEUROLOGICAL:Patient is awake, alert, answers questions, follows commands PSYCH: Normal mood, normal affect. SKIN: Warm, dry, normal turgor, no rashes or lesions noted Laboratory Results - last 24 hr 06/13/18 06:00 Sodium 137 Potassium 3.7 Chloride 104 Carbon Dioxide 23 Anion Gap 10 BUN 13 Creatinine 0.6 Creat Clearance w eGFR 129.31 Random Glucose 105 Calcium 8.4 L Phosphorus 2.2 L Magnesium 1.9 Active Medications Generic Name Dose Route Start Last Admin Trade Name Freq PRN Reason Stop Dose Admin Docusate Sodium 100 mg 06/06/18 15:06 Colace - PO Q12H PRN CONSTIPATION Potassium Chloride/Dextrose/Sod Cl 10 meq in 1,000 mls @ 50 mls/hr 06/11/18 18 :19 06/13/18 01:30 D5-1/2ns+10 Meq Kcl - IV 50 mls/hr ASDIR THIAGO Administration Meclizine HCl 12.5 mg 06/02/18 10:00 06/13/18 09:32 Antivert - PO 12.5 mg DAILY THIAGO Administration Metoprolol Succinate 50 mg 06/02/18 10:00 06/13/18 09:30 Toprol Xl - PO 50 mg DAILY THIAGO Administration Cosopt Pf( 1 each 06/03/18 22:00 06/13/18 09:32 Dorzolamide/Timolol/ OS 1 each Pf [ Eye Drops] Pt's BID THIAGO Administration Own Olanzapine 10 mg 06/06/18 22:00 06/13/18 09:34 Zyprexa - PO 10 mg BID THIAGO Administration Polyethylene Glycol 17 gm 06/07/18 10:00 06/13/18 09:33 Miralax (For Daily Use) - PO 17 grams DAILY THIAGO Administration Tamsulosin HCl 0.8 mg 06/13/18 08:30 06/13/18 09:30 Flomax - PO 0.8 mg DAILY@0830 THIAGO Administration Thiamine HCl 200 mg 06/08/18 19:30 06/13/18 09:29 Vitamin B1 Injection - IVPB 200 mg DAILY THIAGO Administration -Head CT - no acute intracranial pathology -Brain MRI - Very limited exam. Moderate volume loss and ventricular dilatation. A repeat/follow up MRI of the brain is needed with the patient's condition permits for further evaluation ASSESSMENT/PLAN: Patient is an 83 year old male with past medical history of CAD s/p CABG (2002) , [place] with stents, HTN, diverticulitis, who was brought in by due to worsening combativeness, confusion and hallucinations that started 1 week ago. 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 Ladd) consulted. Recommendations appreciated. -MRI brain done, significant motion artifact but no acute changes, no significant acute process -would benefit from short term rehab -Psychiatry (Dr. Mao) consulted. Recommendations appreciated -Discontinue Risperidone and Seroquel -Zyprexa 10mg PO BID for aggression and hallucinations -Physical therapy #AMAYA: resolved -Renal US : bilateral nephrolithiasis, bilateral renal cysts, no evidence of hydronephrosis or obstructive uropathy -Urology (Dr. Rutherford) consulted. -Tamsulosin 0.4mg daily #BPH -Tamsulosin 0.4mg daily #Hypokalemia: resolved -Continue IV D5-1/2NS +10meq KCl @50cc/hr -will continue to monitor #Elevated T.bili: stable -RUQ ultrasound - limited study. Liver, GB and pancreas can not be visualized #LE edema: resolved -Amlodipine held. BP currently controlled -LE US negative for DVT -Knee xray: degenerative changes, no acute process #HTN -Lisinopril 20mg daily -Metoprolol 50mg daily -Amlodipine on hold #CAD -Continue ASA 81 mg daily #BPPV -Continue home Meclizine #FEN -Continue IV 1/2NS-10meq KCl @50cc/hr -Routine bmp monitoring -Dysphagia puree diet #Prophylaxis -Heparin 5000units sq BID #Disposition -full code -Plan for SNF placement while awaiting medicare for [employer]. Visit type - Emergency Visit Emergency Visit: Yes ED Registration Date: 06/01/18 Care time: The patient presented to the Emergency Department on the above date and was hospitalized for further evaluation of their emergent condition. - New Patient This patient is new to me today: No - Critical Care Critical Care patient: No
[2018-06-14 08:03] LABS: ANION GAP 8 MMOL/L (8-16); BLOOD UREA NITROGEN 16 mg/dL (7-18); CALCIUM 8.2 mg/dL (8.5-10.1); CHLORIDE 105 mmol/L (98-107); CO2 26 mmol/L (21-32); CREATININE 0.8 mg/dL (0.55-1.3); GLUCOSE,RANDOM 127 mg/dL (74-106); PHOSPHOROUS 2.7 mg/dL (2.5-4.9); POTASSIUM 3.6 mmol/L (3.5-5.1); SODIUM 138 mmol/L (136-145)
[2018-06-14] MEDS: TAMSULOSIN HCL 0.4 MG CAP PO SCH (08:41)
--- NOTE | 2018-06-14 08:43 | PN ---
Progress Note (short form) - Note Progress Note: Neurology HISTORY OF PRESENT ILLNESS: Pt is an 83 y/o gentleman with a significant past medical history of CAD s/p CABG (tipple bypass) (2002), [place] w/ stents, HTN, diverticulitis who was BIBA to [facility] due to increasing altered mental status and combativeness. Per at bedside and daughter in law(discussed over phone), pt has been exhibiting a rapid mental decline for approximately 5 weeks. endorses that 5 weeks ago, pt was admitted to [facility] due to diverticulitis. Pt was discharged on Cipro and Metronidazole. Furthermore, pt has had decreased PO intake for the last 3-4 days prior to admission. Additionally, pt has been hallucinating for the past few weeks, seeing " children in the house" as well as having conversations with people who aren't there. Spouse also states that pt has had increased lower extremity swelling for the past 5 days. Denies chest pain, sob, nausea/vomiting, or urinary issues. Spouse states that pt's two brothers recently this year and this has made pt depressed. Patient admitted for further evaluation and CT head completed, reviewed and discussed with , no acute changes. Psych recommended Zyprexa and patient continues to improve. MRI brain completed, significant motion artifiact but no acute changes noted and specifically no mass lesions or infarcts seen. Does not show of significant acute process. Zyprexa has been very helpful in treatment, no new neurologic events. Per notes, being set up for SNF, placement per heel caser. Active Medications Docusate Sodium (Colace -) 100 mg PO Q12H PRN PRN Reason: CONSTIPATION Potassium Chloride/Dextrose/Sod Cl (D5-1/2ns+10 Meq Kcl -) 10 meq in 1,000 mls @ 50 mls/hr IV ASDIR [facility] Last Admin: 06/13/18 22:16 Dose: 50 mls/hr Meclizine HCl (Antivert -) 12.5 mg PO DAILY [facility] Last Admin: 06/13/18 09:32 Dose: 12.5 mg Metoprolol Succinate (Toprol Xl -) 50 mg PO DAILY [facility] Last Admin: 06/13/18 09:30 Dose: 50 mg Cosopt Pf( Dorzolamide/Timolol/Pf [ Eye Drops] Pt's Own 1 each OS BID [facility] Last Admin: 06/13/18 21:39 Dose: 1 each Olanzapine (Zyprexa -) 10 mg PO BID [facility] Last Admin: 06/13/18 21:39 Dose: 10 mg Polyethylene Glycol (Miralax (For Daily Use) -) 17 gm PO DAILY [facility] Last Admin: 06/13/18 09:33 Dose: 17 grams Tamsulosin HCl (Flomax -) 0.8 mg PO DAILY@0830 [facility] Last Admin: 06/14/18 08:41 Dose: 0.8 mg Thiamine HCl (Vitamin B1 Injection -) 200 mg IVPB DAILY [facility] Last Admin: 06/13/18 09:29 Dose: 200 mg PHYSICAL EXAMINATION Vital Signs Period Temp Pulse Resp BP Sys/Schneider Pulse Ox Last 24 Hr 98.3 F-98.7 F 104-107 20-20 132-148/61-98 98 GENERAL: AAOx1 HEAD: AT/NC EYES: Left eye Corneal Clouding. EARS, NOSE, THROAT: Dry mucous membranes NECK: Supple, No JVD LUNGS: CTAB HEART: 2/6 DASHA. ABDOMEN: NDNT No HSM No guarding or rigidity LOWER EXTREMITIES: B/L lower extremity edema SKIN: No rashes or lesions appreciated \\ Neuro: CN intact, moves all extremities, sensory intact, gait deferred, calm and cooperative CBCD WBC 8.0 K/mm3 (4.0-10.0) 06/12/18 06:40 RBC 4.65 M/mm3 (4.00-5.60) 06/12/18 06:40 Hgb 14.1 GM/dL (11.7-16.9) 06/12/18 06:40 Hct 40.8 % (35.4-49) 06/12/18 06:40 MCV 87.8 fl (80-96) 06/12/18 06:40 MCHC 34.6 g/dl (32.0-35.9) 06/12/18 06:40 RDW 13.0 % (11.9-15.9) 06/12/18 06:40 Plt Count 265 K/MM3 (134-434) 06/12/18 06:40 MPV 7.9 fl (7.5-11.1) 06/12/18 06:40 CMP Sodium 138 mmol/L (136-145) 06/14/18 05:20 Potassium 3.6 mmol/L (3.5-5.1) 06/14/18 05:20 Chloride 105 mmol/L (98-107) 06/14/18 05:20 Carbon Dioxide 26 mmol/L (21-32) 06/14/18 05:20 Anion Gap 8 MMOL/L (8-16) 06/14/18 05:20 BUN 16 mg/dL (7-18) 06/14/18 05:20 Creatinine 0.8 mg/dL (0.55-1.3) 06/14/18 05:20 Creat Clearance w eGFR 92.78 (>60) 06/14/18 05:20 Random Glucose 127 mg/dL (74-106) H 06/14/18 05:20 Calcium 8.2 mg/dL (8.5-10.1) L 06/14/18 05:20 Total Bilirubin 1.3 mg/dL (0.2-1) H 06/10/18 08:30 AST 22 U/L (15-37) 06/10/18 08:30 ALT 19 U/L (13-61) 06/10/18 08:30 Alkaline Phosphatase 65 U/L (45-117) 06/10/18 08:30 Total Protein 6.4 g/dl (6.4-8.2) 06/10/18 08:30 Albumin 2.8 g/dl (3.4-5.0) L 06/10/18 08:30 CARDIAC ENZYMES Creatine Kinase 149 U/L (26-308) 06/01/18 17:45 Troponin I < 0.02 ng/ml (0.00-0.05) 06/01/18 17:45 ASSESSMENT/PLAN: Pt is an 83 y/o gentleman with a significant past medical history of CAD s/p CABG (tipple bypass) (2002), [place] w/ stents, HTN, diverticulitis who was BIBA to [facility] due to increasing altered mental status and combativeness. Per at bedside and daughter in law(discussed over phone), pt has been exhibiting a rapid mental decline for approximately 5 weeks. endorses that 5 weeks ago, pt was admitted to [facility] due to diverticulitis. Pt was discharged on Cipro and Metronidazole. Furthermore, pt has had decreased PO intake for the last 3-4 days. Additionally, pt has been hallucinating for the past few weeks, seeing " children in the house" as well as having conversations with people who aren't there. Spouse also states that pt has had increased lower extremity swelling for the past 5 days. Denies chest pain, sob, nausea/vomiting, or urinary issues. Spouse states that pt's two brothers recently this year and this has made pt depressed. Patient admitted for further evaluation and CT head completed, reviewed and discussed with , no acute changes. He is more awake and interactive this AM, though still confused, sachi vest in place. Getting IV fluids, not combative but not following commands either. Psych note reviewed and respiradol d/mariya, patient put on Zyprexa. UA negative, infectious work up not been revealing. Likely psych process given recent stressor and good response to Zyprexa noted. CT head negative, Reorientation as able. Continue hydration. Monitor BP, maintain normotensive range. More disorganized off Zyprexa and was restarted. Improved appearing this AM, not combative. MRI brain completed, significant motion artifiact but no acute changes noted and specifically no mass lesions or infarcts seen. D/c planning, placement per heel caser/family. Not on restraints and is calm at this time without aggitation for last few days. Knows he's in the hospital and in [place]. Improved with Zyprexa, should remain on it , unless otherwise indicated by psych. Continue monitor of mental status, reorientation as much as possible. Possibly for SNF.
[2018-06-14] MEDS: MECLIZINE HCL 12.5 MG TABLET PO SCH (10:50)
[2018-06-14] MEDS: COSOPT OS SCH ×2 (10:51→21:29)
[2018-06-14] MEDS: OLANZapine 10 MG TABLET PO SCH ×2 (10:51→21:29)
[2018-06-14] MEDS: THIAMINE HCL 200 MG/2 ML VIAL IVPB SCH (10:51)
[2018-06-14] MEDS: POLYETHYLENE GLYCOL 3350 119 GM BTL PO SCH (11:12)
[2018-06-14] MEDS ORDERED: PT OWN MED DRAWER 7, Y5N ONE (11:20)
--- NOTE | 2018-06-14 12:59 | EKG ---
Test Reason : Blood Pressure : / mmHG Vent. Rate : 128 BPM Atrial Rate : 111 BPM P-R Int : 000 ms QRS Dur : 078 ms QT Int : 414 ms P-R-T Axes : 000 -66 082 degrees QTc Int : 604 ms SINUS TACHYCARDIA WITH OCCASIONAL PREMATURE VENTRICULAR COMPLEXES LEFT AXIS DEVIATION re[polarization abnormalities INFERIOR INFARCT , AGE UNDETERMINED ABNORMAL ECG Confirmed by MICHELLE MALIK, ZORAIDA ([id number]) on 06/14/2018 12:59:28 PM Referred By: Saud FRAZIER Confirmed By:ZORAIDA MARTINEZ MD
[2018-06-14 16:04] LABS: EPI CELLS 1.5 /HPF (0-5/HPF); PH,URINE 5.5 (5.0-8.0); URINE APPEARANCE CLOUDY; URINE BACTERIA 615.2 /hpf (NEGATIVE); URINE BILIRUBIN 1+ (NEGATIVE); URINE CASTS 4 /lpf (0-8); URINE COLOR DK YELLOW; URINE GLUCOSE (UA) NEGATIVE (NEGATIVE); URINE KETONE NEGATIVE (NEGATIVE); URINE LEUK ESTERASE TRACE (NEGATIVE); URINE NITRITE NEGATIVE (NEGATIVE); URINE PROTEIN 2+ (NEGATIVE); URINE RBC 54 /hpf (0-4); URINE UROBILINOGEN 4.0 E.U/dl mg/dL (0.2-1.0); URINE WBC 13 /hpf (0-5)
--- NOTE | 2018-06-14 18:04 | PN ---
Physical Exam: SUBJECTIVE: Patient seen and examined at bedside this morning. No acute events overnight. PAtient was more quiet this morning, but reports he is okay. No fever , chills, headache, dizziness, chest pain, SOB, abdominal pain, diarrhea, urinary symptoms. Bladder scan done in the afternoon revealed 990cc of retained urine. OBJECTIVE: Vital Signs Temperature 98.4 F 06/14/18 14:06 Pulse Rate 114 H 06/14/18 14:06 Respiratory Rate 20 06/14/18 11:40 Blood Pressure 142/95 06/14/18 14:06 O2 Sat by Pulse Oximetry (%) 98 06/14/18 09:00 GENERAL: The patient is awake,alert, oriented to person and place, in no acute distress. HEAD: Normal with no signs of trauma. EYES: sclera anicteric, conjunctiva clear. 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 LUNGS: Breath sounds equal, clear to auscultation bilaterally. HEART: Regular rate and rhythm, S1, S2 +holosytolic murmur ABDOMEN: Soft, nontender, nondistended, normoactive bowel sounds. EXTREMITIES: 2+ pulses, warm, well-perfused, no edema. NEUROLOGICAL:Patient is awake, alert, answers questions, follows commands PSYCH: Normal mood, normal affect. SKIN: Warm, dry, normal turgor, no rashes or lesions noted Laboratory Results - last 24 hr 06/14/18 06/14/18 05:20 14:50 Sodium 138 Potassium 3.6 Chloride 105 Carbon Dioxide 26 Anion Gap 8 BUN 16 Creatinine 0.8 Creat Clearance w eGFR 92.78 Random Glucose 127 H Calcium 8.2 L Phosphorus 2.7 Magnesium 2.0 Urine Color Dk yellow Urine Appearance Cloudy Urine pH 5.5 Ur Specific [place] 1.013 Urine Protein 2+ H Urine Glucose (UA) Negative Urine Ketones Negative Urine Blood 2+ H Urine Nitrite Negative Urine Bilirubin 1+ H Urine Urobilinogen 4.0 e.u/dl Ur Leukocyte Esterase Trace Urine WBC (Auto) 13 Urine RBC (Auto) 54 Urine Casts (Auto) 4 U Epithel Cells (Auto) 1.5 Urine Bacteria (Auto) 615.2 Active Medications Generic Name Dose Route Start Last Admin Trade Name Freq PRN Reason Stop Dose Admin Docusate Sodium 100 mg 06/06/18 15:06 Colace - PO Q12H PRN CONSTIPATION Potassium Chloride/Dextrose/Sod Cl 10 meq in 1,000 mls @ 50 mls/hr 06/11/18 18 :19 06/13/18 22:16 D5-1/2ns+10 Meq Kcl - IV 50 mls/hr ASDIR THIAGO Administration Levofloxacin 500 mg 06/14/18 16:45 06/14/18 17:12 Levaquin - PO 500 mg DAILY@0600 THIAGO Administration Lisinopril 20 mg 06/15/18 10:00 Prinivil PO DAILY THIAGO Meclizine HCl 12.5 mg 06/02/18 10:00 06/14/18 10:50 Antivert - PO 12.5 mg DAILY THIAGO Administration Metoprolol Succinate 50 mg 06/02/18 10:00 06/14/18 10:50 Toprol Xl - PO 50 mg DAILY THIAGO Administration Cosopt Pf( 1 each 06/03/18 22:00 06/14/18 10:51 Dorzolamide/Timolol/ OS 1 each Pf [ Eye Drops] Pt's BID THIAGO Administration Own Olanzapine 10 mg 06/06/18 22:00 06/14/18 10:51 Zyprexa - PO 10 mg BID THIAGO Administration Polyethylene Glycol 17 gm 06/07/18 10:00 06/14/18 11:12 Miralax (For Daily Use) - PO Not Given DAILY THIAGO Tamsulosin HCl 0.8 mg 06/13/18 08:30 06/14/18 08:41 Flomax - PO 0.8 mg DAILY@0830 THIAGO Administration Thiamine HCl 200 mg 06/08/18 19:30 06/14/18 10:51 Vitamin B1 Injection - IVPB 200 mg DAILY THIAGO Administration -Head CT - no acute intracranial pathology -Brain MRI - Very limited exam. Moderate volume loss and ventricular dilatation. A repeat/follow up MRI of the brain is needed with the patient's condition permits for further evaluation ASSESSMENT/PLAN: Patient is an 83 year old male with past medical history of CAD s/p CABG (2002) , [place] with stents, HTN, diverticulitis, who was brought in by due to worsening combativeness, confusion and hallucinations that started 1 week ago. 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 Ladd) consulted. Recommendations appreciated. -MRI brain done, significant motion artifact but no acute changes, no significant acute process -would benefit from short term rehab -Psychiatry (Dr. Mao) consulted. Recommendations appreciated -Discontinue Risperidone and Seroquel -Zyprexa 10mg PO BID for aggression and hallucinations -Physical therapy #AMAYA: resolved -Renal US : bilateral nephrolithiasis, bilateral renal cysts, no evidence of hydronephrosis or obstructive uropathy -Urology (Dr. Rutherford) consulted. -Tamsulosin 0.8mg daily #BPH -Tamsulosin 0.8mg daily -Bladder scan done today 990cc of retained urine -Will re-insert cantu cath -UA showed WBC 13, trace LE -Will start Levaquin 500mg daily -Urine cultures pending #Hypokalemia: resolved -Continue IV D5-1/2NS +10meq KCl @50cc/hr -will continue to monitor #Elevated T.bili: stable -RUQ ultrasound - limited study. Liver, GB and pancreas can not be visualized #LE edema: resolved -Amlodipine held. BP currently controlled -LE US negative for DVT -Knee xray: degenerative changes, no acute process #HTN -Lisinopril 20mg daily -Metoprolol 50mg daily -Amlodipine on hold #CAD -Continue ASA 81 mg daily #BPPV -Continue home Meclizine #FEN -Continue IV 1/2NS-10meq KCl @50cc/hr -Routine bmp monitoring -Dysphagia puree diet #Prophylaxis -Heparin 5000units sq BID #Disposition -full code -Plan for SNF placement while awaiting medicare for [employer]. Visit type - Emergency Visit Emergency Visit: Yes ED Registration Date: 06/01/18 Care time: The patient presented to the Emergency Department on the above date and was hospitalized for further evaluation of their emergent condition. - New Patient This patient is new to me today: No - Critical Care Critical Care patient: No
--- NOTE | 2018-06-14 18:20 | PN ---
Teaching Attending Note Name of Resident: Gina De La Cruz ATTENDING PHYSICIAN STATEMENT I saw and evaluated the patient. I reviewed the resident's note and discussed the case with the resident. I agree with the resident's findings and plan as documented. SUBJECTIVE: No events over night , but became agitated this am and tachycardic. was more awake and cooperative yesterday per at bedside OBJECTIVE: NAd. Awake, calm, opens eyes and answers few questions CV: RRR, 3/6 SM at base, LLSB and [place] . Lungs: CTAB Ext: no edema Neuro: limited, round equal pupils, reactive to light. no facial droop. moves all extremities. ASSESSMENT AND PLAN: 83 y/o man with h/o CAD, CABG, HTN, stents, recent social stressors and recent hospitalization for acute diverticulitis, who presented with worsening confusion and hallucinations x 5 weeks. 1-AMS due to possible dementia. component of metabolic encephalopathy. - Bladder scan revealed urinary retention again. will place cantu and cont flomax. - UA revealed possible UTI. no hx of resistant organisms. start levaquin. send urine cx . Qtc noted - cont zyprexa - MRI reviewed . Limited 2- HTN,CAD: cont toprol and resume lisinopril. norvasc on hold. Will not resume at dc 3- LE edema, resolved. norvasc Dc'd 4- urinary retention : likely due to UTI and BPH. reinsert foly. failed voiding trial f/u with Uro as out p t 5- Resume lovenox for DVT px Rehab placement in progress . Might be ready tomorrow
[2018-06-15] MEDS: D5-1/2NS+10 MEQ KCL - 10 MEQ/1,000 ML INFUS.BAG IV SCH (02:27)
[2018-06-15 07:25] LABS: BASO % 0.6 % (0-2.0); EOS % 3.6 % (0-4.5); HEMATOCRIT 38.8 % (35.4-49); HEMOGLOBIN 13.5 GM/dL (11.7-16.9); MCH 29.9 pg (25.7-33.7); MCHC 34.7 g/dl (32.0-35.9); MEAN CELL VOLUME 86.1 fl (80-96); MEAN PLT VOLUME 7.8 fl (7.5-11.1); MONO % 9.8 % (3.8-10.2); PLATELET COUNT 311 K/MM3 (134-434); RDW 13.5 % (11.9-15.9); WHITE BLOOD COUNT 9.3 K/mm3 (4.0-10.0)
[2018-06-15 07:52] LABS: ALBUMIN 2.5 g/dl (3.4-5.0); ALK PHOS 83 U/L (45-117); ANION GAP 9 MMOL/L (8-16); BILIRUBIN,TOTAL 1.3 mg/dL (0.2-1); BLOOD UREA NITROGEN 12 mg/dL (7-18); CALCIUM 8.2 mg/dL (8.5-10.1); CHLORIDE 107 mmol/L (98-107); CO2 25 mmol/L (21-32); CREATININE 0.6 mg/dL (0.55-1.3); GLUCOSE,RANDOM 112 mg/dL (74-106); MAGNESIUM 1.9 mg/dL (1.8-2.4); PHOSPHOROUS 2.3 mg/dL (2.5-4.9); POTASSIUM 3.5 mmol/L (3.5-5.1); SGOT/AST 13 U/L (15-37); SGPT/ALT 15 U/L (13-61); SODIUM 140 mmol/L (136-145); TOT PROT 6.2 g/dl (6.4-8.2)
[2018-06-15] MEDS ORDERED: NAPH,MB-DB/K PH,MBDB POWDER PACKET PO ONE (08:30)
--- NOTE | 2018-06-15 08:58 | PN ---
Progress Note (short form) - Note Progress Note: Neurology HISTORY OF PRESENT ILLNESS: Pt is an 83 y/o gentleman with a significant past medical history of CAD s/p CABG (tipple bypass) (2002), [place] w/ stents, HTN, diverticulitis who was BIBA to [facility] due to increasing altered mental status and combativeness. Per at bedside and daughter in law(discussed over phone), pt has been exhibiting a rapid mental decline for approximately 5 weeks. endorses that 5 weeks ago, pt was admitted to [facility] due to diverticulitis. Pt was discharged on Cipro and Metronidazole. Furthermore, pt has had decreased PO intake for the last 3-4 days prior to admission. Additionally, pt has been hallucinating for the past few weeks, seeing " children in the house" as well as having conversations with people who aren't there. Spouse also states that pt has had increased lower extremity swelling for the past 5 days. Denies chest pain, sob, nausea/vomiting, or urinary issues. Spouse states that pt's two brothers recently this year and this has made pt depressed. Patient admitted for further evaluation and CT head completed, reviewed and discussed with , no acute changes. Psych recommended Zyprexa and patient continues to improve. MRI brain completed, significant motion artifiact but no acute changes noted and specifically no mass lesions or infarcts seen. Does not show of significant acute process. Zyprexa has been very helpful in treatment, no new neurologic events. Per notes, being set up for SNF, placement per assistant case manager. Remains calm and relaxed during my eval. Active Medications Docusate Sodium (Colace -) 100 mg PO Q12H PRN PRN Reason: CONSTIPATION Enoxaparin Sodium (Lovenox -) 40 mg SQ DAILY ON LICENSE OF [facility] Potassium Chloride/Dextrose/Sod Cl (D5-1/2ns+10 Meq Kcl -) 10 meq in 1,000 mls @ 50 mls/hr IV ASDIR ON LICENSE OF [facility] Last Admin: 06/15/18 02:27 Dose: 50 mls/hr Levofloxacin (Levaquin -) 500 mg PO DAILY@0600 ON LICENSE OF [facility] Last Admin: 06/15/18 05:55 Dose: 500 mg Lisinopril (Prinivil) 20 mg PO DAILY ON LICENSE OF [facility] Meclizine HCl (Antivert -) 12.5 mg PO DAILY ON LICENSE OF [facility] Last Admin: 06/14/18 10:50 Dose: 12.5 mg Metoprolol Succinate (Toprol Xl -) 50 mg PO DAILY ON LICENSE OF [facility] Last Admin: 06/14/18 10:50 Dose: 50 mg Cosopt Pf( Dorzolamide/Timolol/Pf [ Eye Drops] Pt's Own 1 each OS BID ON LICENSE OF [facility] Last Admin: 06/14/18 21:29 Dose: 1 each Olanzapine (Zyprexa -) 10 mg PO BID ON LICENSE OF [facility] Last Admin: 06/14/18 21:29 Dose: 10 mg Polyethylene Glycol (Miralax (For Daily Use) -) 17 gm PO DAILY ON LICENSE OF [facility] Last Admin: 06/14/18 11:12 Dose: Not Given Tamsulosin HCl (Flomax -) 0.8 mg PO DAILY@0830 ON LICENSE OF [facility] Last Admin: 06/14/18 08:41 Dose: 0.8 mg Thiamine HCl (Vitamin B1 Injection -) 200 mg IVPB DAILY ON LICENSE OF [facility] Last Admin: 06/14/18 10:51 Dose: 200 mg PHYSICAL EXAMINATION Vital Signs Period Temp Pulse Resp BP Sys/Schneider Pulse Ox Last 24 Hr 97.9 F-98.6 F 104-130 20-22 132-154/71-95 98-98 GENERAL: AAOx1 HEAD: AT/NC EYES: Left eye Corneal Clouding. EARS, NOSE, THROAT: Dry mucous membranes NECK: Supple, No JVD LUNGS: CTAB HEART: 2/6 DASHA. ABDOMEN: NDNT No HSM No guarding or rigidity LOWER EXTREMITIES: B/L lower extremity edema SKIN: No rashes or lesions appreciated \\ Neuro: CN intact, moves all extremities, sensory intact, gait deferred, calm and cooperative CBCD WBC 9.3 K/mm3 (4.0-10.0) 06/15/18 06:00 RBC 4.50 M/mm3 (4.00-5.60) 06/15/18 06:00 Hgb 13.5 GM/dL (11.7-16.9) 06/15/18 06:00 Hct 38.8 % (35.4-49) 06/15/18 06:00 MCV 86.1 fl (80-96) 06/15/18 06:00 MCHC 34.7 g/dl (32.0-35.9) 06/15/18 06:00 RDW 13.5 % (11.9-15.9) 06/15/18 06:00 Plt Count 311 K/MM3 (134-434) 06/15/18 06:00 MPV 7.8 fl (7.5-11.1) 06/15/18 06:00 CMP Sodium 140 mmol/L (136-145) 06/15/18 06:00 Potassium 3.5 mmol/L (3.5-5.1) 06/15/18 06:00 Chloride 107 mmol/L (98-107) 06/15/18 06:00 Carbon Dioxide 25 mmol/L (21-32) 06/15/18 06:00 Anion Gap 9 MMOL/L (8-16) 06/15/18 06:00 BUN 12 mg/dL (7-18) 06/15/18 06:00 Creatinine 0.6 mg/dL (0.55-1.3) 06/15/18 06:00 Creat Clearance w eGFR 129.31 (>60) 06/15/18 06:00 Calcium 8.2 mg/dL (8.5-10.1) L 06/15/18 06:00 Total Bilirubin 1.3 mg/dL (0.2-1) H 06/15/18 06:00 AST 13 U/L (15-37) L 06/15/18 06:00 ALT 15 U/L (13-61) 06/15/18 06:00 Alkaline Phosphatase 83 U/L (45-117) 06/15/18 06:00 Total Protein 6.2 g/dl (6.4-8.2) L 06/15/18 06:00 Albumin 2.5 g/dl (3.4-5.0) L 06/15/18 06:00 ASSESSMENT/PLAN: Pt is an 83 y/o gentleman with a significant past medical history of CAD s/p CABG (tipple bypass) (2002), [place] w/ stents, HTN, diverticulitis who was BIBA to [facility] due to increasing altered mental status and combativeness. Per at bedside and daughter in law(discussed over phone), pt has been exhibiting a rapid mental decline for approximately 5 weeks. endorses that 5 weeks ago, pt was admitted to [facility] due to diverticulitis. Pt was discharged on Cipro and Metronidazole. Additionally, pt has been hallucinating for the past few weeks, seeing " children in the house" as well as having conversations with people who aren't there. Spouse also states that pt has had increased lower extremity swelling for the past 5 days. Spouse states that pt' s two brothers recently this year and this has made pt depressed. Patient put on Zyprexa. UA negative, infectious work up not been revealing. Likely psych process given recent stressor and good response to Zyprexa noted. CT head negative, Reorientation as able. Continue hydration. Monitor BP, maintain normotensive Disorganized off Zyprexa and was restarted. Improved appearing this AM, not combative. MRI brain completed, significant motion artifact but no acute changes noted and specifically no mass lesions or infarcts seen. D/c planning, placement per assistant case manager/family. Not on restraints and is calm at this time without aggitation for last few days. Continue monitor of mental status, reorientation as much as possible. Possibly for SNF.
[2018-06-15 09:02] VITALS: TEMP 97.6
[2018-06-15] MEDS: THIAMINE HCL 200 MG/2 ML VIAL IVPB SCH (09:29)
[2018-06-15] MEDS: TAMSULOSIN HCL 0.4 MG CAP PO SCH (09:29)
[2018-06-15] MEDS: OLANZapine 10 MG TABLET PO SCH (09:30)
[2018-06-15] MEDS: MECLIZINE HCL 12.5 MG TABLET PO SCH (09:30)
[2018-06-15] MEDS: COSOPT OS SCH (09:30)
[2018-06-15] MEDS ORDERED: PT OWN MED DRAWER 7, Y5N ONE (09:40)
[2018-06-15] MEDS: POLYETHYLENE GLYCOL 3350 119 GM BTL PO SCH (09:44)
[2018-06-15] MEDS ORDERED: LISINOPRIL 20 MG TABLET (FP) PO SCH (10:00)
[2018-06-15] MEDS ORDERED: ENOXAPARIN NA (PORCINE) 40 MG/0.4 ML DISP.SYRIN SQ SCH (10:00)
[2018-06-15 10:51] VITALS: BP 146/89; PULSE 109
[2018-06-15] MEDS ORDERED: amLODIPine BESYLATE 5 MG TABLET (FP) PO SCH (13:08)
--- NOTE | 2018-06-15 13:38 | DS ---
Physical Exam: SUBJECTIVE: Patient seen and examined at bedside this morning. No acute events overnight. Patient is sitting comfortably in bed this morning and has no complaints. OBJECTIVE: Vital Signs Temperature 97.6 F 06/15/18 09:01 Pulse Rate 109 H 06/15/18 10:50 Respiratory Rate 20 06/15/18 10:50 Blood Pressure 146/89 06/15/18 10:50 O2 Sat by Pulse Oximetry (%) 98 06/14/18 21:00 PHYSICAL EXAM GENERAL: The patient is awake,alert, oriented to person and place, in no acute distress. HEAD: Normal with no signs of trauma. EYES: sclera anicteric, conjunctiva clear. 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 LUNGS: Breath sounds equal, clear to auscultation bilaterally. HEART: Regular rate and rhythm, S1, S2 +holosytolic murmur ABDOMEN: Soft, nontender, nondistended, normoactive bowel sounds. EXTREMITIES: 2+ pulses, warm, well-perfused, no edema. NEUROLOGICAL:Patient is awake, alert, answers questions, follows commands PSYCH: Normal mood, normal affect. SKIN: Warm, dry, normal turgor, no rashes or lesions noted LABS Laboratory Results - last 24 hr 06/14/18 06/15/18 06/15/18 14:50 06:00 06:00 WBC 9.3 RBC 4.50 Hgb 13.5 Hct 38.8 MCV 86.1 MCH 29.9 MCHC 34.7 RDW 13.5 Plt Count 311 MPV 7.8 Absolute Neuts (auto) 6.8 Neutrophils % 73.0 Lymphocytes % 13.0 Monocytes % 9.8 Eosinophils % 3.6 Basophils % 0.6 Nucleated RBC % 0 Sodium 140 Potassium 3.5 Chloride 107 Carbon Dioxide 25 Anion Gap 9 BUN 12 Creatinine 0.6 Creat Clearance w eGFR 129.31 Random Glucose 112 H Calcium 8.2 L Phosphorus 2.3 L Magnesium 1.9 Total Bilirubin 1.3 H AST 13 L ALT 15 Alkaline Phosphatase 83 Total Protein 6.2 L Albumin 2.5 L Urine Color Dk yellow Urine Appearance Cloudy Urine pH 5.5 Ur Specific [place] 1.013 Urine Protein 2+ H Urine Glucose (UA) Negative Urine Ketones Negative Urine Blood 2+ H Urine Nitrite Negative Urine Bilirubin 1+ H Urine Urobilinogen 4.0 e.u/dl Ur Leukocyte Esterase Trace Urine WBC (Auto) 13 Urine RBC (Auto) 54 Urine Casts (Auto) 4 U Epithel Cells (Auto) 1.5 Urine Bacteria (Auto) 615.2 -Head CT - no acute intracranial pathology -Brain MRI - Very limited exam. Moderate volume loss and ventricular dilatation. A repeat/follow up MRI of the brain is needed with the patient's condition permits for further evaluation HOSPITAL COURSE: Date of Admission:06/01/18 Date of Discharge: 06/15/18 Patient is an 83 year old male with past medical history of CAD s/p CABG (2002) , HTN, diverticulitis, who was brought in by due to worsening combativeness , confusion and hallucinations for [address] scan and MRI were done which showed no acute pathology. Neurology and Psychiatry consulted. Patient was started on Zyprexa 10mg twice a day, and showed improvement in mental status and behavior. During the hospital stay, patient developed AMAYA and was noted to retain urine. Cantu catheter was inserted and urology was consulted. Patient was started on Tamsulosin 0.8mg daily for BPH. Cantu was discontinued and trial of voiding was done but after a day, patient noted to still retain urine. Cantu was re-inserted. Urinalysis showed a UTI and patient was started on Levaquin 500mg daily. Urology recommended to keep the cantu catheter in at this time, and to follow up as outpatient for further management of BPH. Patient was discharged to a long-term facility to continue physical therapy. 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 CAT scan and MRI were done and negative for any concerns. You were evaluated by Neurology and Psychiatry. You were started on a new medication Zyprexa. You were evaluated by the urologist for an enlarged prostate. A cantu catheter is inserted and you were given a medication that would help you pass urine more easily. It is important that you follow up with Dr. Rutherford for further care and management. You will be discharged to a long-term facility for a short term rehab to continue with physical therapy. Medications Please take the following medications as prescribed. 1. Zyprexa 10mg twice a day. 2. Flomax 0.8 mg daily. 3. Levaquin (antibiotics) 500mg Daily for 5 more days for the UTI. Please STOP taking your blood pressure medication, Amlodipine, as it likely caused your legs to swell. Continue your other home medications. Follow up Please follow up with your primary care doctor (Dr. Vergara) within 1 week. Please follow up with the psychiatrist (Dr. Mao) within 1 week. Please follow up with the urologist (Dr. Rutherford) within 2 weeks. Please follow up with the neurologist (Dr. Ladd) within 2 weeks. Additional info Call 911 or go to the ED if with any worsening fever, chills, headache, nausea, vomiting, chest pain, shortness of breath, belly pain, bloody stools or any new concerns noted. Referrals: Kaity Mao MD [Staff Physician] - Han Rutherford MD [Staff Physician] - Hansel Vergara PA [Physician Freezer Unloader] - Kris Ladd MD [Staff Physician] - Disposition: ASSISTED FACILITY - Home Medications Comprehensive Discharge Medication List: Ambulatory Orders Aspirin [ASA -] 81 mg PO DAILY 06/01/18 Lisinopril 20 mg PO DAILY 06/01/18 Meclizine HCl 12.5 mg PO DAILY 06/01/18 Metoprolol Succinate 50 mg PO DAILY 06/01/18 Dorzolamide/Timolol/Pf [Cosopt Pf Eye Drops] 1 each OS BID 06/03/18 Simvastatin 20 mg PO HS 06/05/18 Docusate Sodium [Colace -] 100 mg PO Q12H PRN capsule 06/09/18 Olanzapine [ZyPREXA -] 10 mg PO BID tablet 06/09/18 Polyethylene Glycol 3350 [Miralax 119 gm Btl -] 17 gm PO DAILY bottle 06/09/18 Lisinopril [Prinivil] 20 mg PO DAILY tablet 06/15/18 Tamsulosin HCl [Flomax -] 0.8 mg PO DAILY@0830 #0 cap.er.24h 06/15/18 levoFLOXacin [Levaquin -] 500 mg PO DAILY@0600 5 Days tablet 06/15/18 This patient is new to me today: No Emergency Visit: Yes ED Registration Date: 06/01/18 Care time: The patient presented to the Emergency Department on the above date and was hospitalized for further evaluation of their emergent condition. Critical Care patient: No - Discharge Referral Referred to [facility] Med P.C.: No
--- NOTE | 2018-06-15 16:19 | PN ---
Teaching Attending Note Name of Resident: Gina De La Cruz ATTENDING PHYSICIAN STATEMENT I saw and evaluated the patient. I reviewed the resident's note and discussed the case with the resident. I agree with the resident's findings and plan as documented. SUBJECTIVE: Seen and examined, feeling better. More alert today, still retaining, cantu placed and abx started. No acute events OBJECTIVE: Vital Signs Period Temp Pulse Resp BP Sys/Schneider Pulse Ox Last 24 Hr 97.6 F-98.6 F 104-110 20-22 132-150/71-106 98 Laboratory Results - last 24 hr 06/15/18 06/15/18 06:00 06:00 WBC 9.3 RBC 4.50 Hgb 13.5 Hct 38.8 MCV 86.1 MCH 29.9 MCHC 34.7 RDW 13.5 Plt Count 311 MPV 7.8 Absolute Neuts (auto) 6.8 Neutrophils % 73.0 Lymphocytes % 13.0 Monocytes % 9.8 Eosinophils % 3.6 Basophils % 0.6 Nucleated RBC % 0 Sodium 140 Potassium 3.5 Chloride 107 Carbon Dioxide 25 Anion Gap 9 BUN 12 Creatinine 0.6 Creat Clearance w eGFR 129.31 Random Glucose 112 H Calcium 8.2 L Phosphorus 2.3 L Magnesium 1.9 Total Bilirubin 1.3 H AST 13 L ALT 15 Alkaline Phosphatase 83 Total Protein 6.2 L Albumin 2.5 L Current Medications Generic Name Dose Route Start Last Admin Trade Name Freq PRN Reason Stop Dose Admin Docusate Sodium 100 mg 06/06/18 15:06 Colace - PO Q12H PRN CONSTIPATION Enoxaparin Sodium 40 mg 06/15/18 10:00 06/15/18 09:29 Lovenox - SQ 40 mg DAILY THIAGO Administration Levofloxacin 500 mg 06/14/18 16:45 06/15/18 05:55 Levaquin - PO 500 mg DAILY@0600 THIAGO Administration Lisinopril 20 mg 06/15/18 10:00 06/15/18 09:30 Prinivil PO 20 mg DAILY THIAGO Administration Meclizine HCl 12.5 mg 06/02/18 10:00 06/15/18 09:30 Antivert - PO 12.5 mg DAILY THIAGO Administration Metoprolol Succinate 50 mg 06/02/18 10:00 06/15/18 09:30 Toprol Xl - PO 50 mg DAILY THIAGO Administration Cosopt Pf( 1 each 06/03/18 22:00 06/15/18 09:30 Dorzolamide/Timolol/ OS 1 each Pf [ Eye Drops] Pt's BID THIAGO Administration Own Olanzapine 10 mg 06/06/18 22:00 06/15/18 09:30 Zyprexa - PO 10 mg BID THIAGO Administration Polyethylene Glycol 17 gm 06/07/18 10:00 06/15/18 09:44 Miralax (For Daily Use) - PO 17 grams DAILY THIAGO Administration Tamsulosin HCl 0.8 mg 06/13/18 08:30 06/15/18 09:29 Flomax - PO 0.8 mg DAILY@0830 THIAGO Administration Thiamine HCl 200 mg 06/08/18 19:30 06/15/18 09:29 Vitamin B1 Injection - IVPB 200 mg DAILY THIAGO Administration IMAGING REPORTS REVIEWED PHYSICAL EXAM: GENERAL: NAD, COMFORTABLE CVS: S1S2, RRR, +DASHA LUNGS: CTA BL, NO W/R/R, UNLABORED ABDOMEN: SOFT, NTND, NABS : CANTU DRAINING CONCENTRATED BLOOD TINGED URINE EXT: NO C/C/E ASSESSMENT: AMS/Delirium BPH/Urinary retention UTI CAD s/p CABG HTN Valvular disease PLAN: -neuro and psych eval appreciated, full workup done -zyprexa with good effect, patient is non combative, close to baseline -continue with cnatu, and follow with urology outpatient -c/w flomax -PO abx for 5 days, followup urine cx while in rehab
== END 2018-06-15 16:51 | DRG 884 ==
LOC: JER 16:07 → JERBED 22:38 → J5S 06-02 03:28 → J6S 06-10 22:20
PROVIDERS: ADMIT Internal Medicine; ATTEND Internal Medicine
DX: F03.91 Unspecified dementia, unspecified severity, with behavioral disturbance (principal); G92 Toxic encephalopathy; R44.2 Other hallucinations; N17.9 Acute kidney failure, unspecified; N39.0 Urinary tract infection, site not specified; I10 Essential (primary) hypertension; I25.10 Atherosclerotic heart disease of native coronary artery without angina pectoris; D72.1 Eosinophilia; T43.505A Adverse effect of unspecified antipsychotics and neuroleptics, initial encounter; I25.2 Old myocardial infarction; R41.0 Disorientation, unspecified; F17.210 Nicotine dependence, cigarettes, uncomplicated; E87.6 Hypokalemia; B95.2 Enterococcus as the cause of diseases classified elsewhere; H81.10 Benign paroxysmal vertigo, unspecified ear; R33.8 Other retention of urine; N40.1 Benign prostatic hyperplasia with lower urinary tract symptoms; E86.0 Dehydration; N28.1 Cyst of kidney, acquired; K56.41 Fecal impaction; H54.40 Blindness, one eye, unspecified eye; Z95.5 Presence of coronary angioplasty implant and graft; Z95.2 Presence of prosthetic heart valve; Z95.1 Presence of aortocoronary bypass graft; Z88.0 Allergy status to penicillin; Z51.5 Encounter for palliative care
CPT/HCPCS: 36415; 70450-TC; 70551-TC; 71045-TC-FY; 73562-TC-LT-FY; 73562-TC-RT-FY; 74018-TC-FY; 76705-TC; 76775-TC; 80048; 80053; 80076; 81003; 82140; 82248; 82550; 82607; 82746; 83735; 83880; 84100; 84207; 84443; 84484; 85025; 85027; 85610; 85651; 85730; 86140; 86593; 87086; 87186; 93005; 93010; 93306-TC; 93971-TC; 97116-GP; 97162-GP; 99283-25; J1644; J2794

== ENCOUNTER 2018-06-30 20:02 | Inpatient (IN) | payer OTHER ==
--- NOTE | 2018-06-30 20:52 | PDOC ---
History of Present Illness - General Chief Complaint: Hematuria Stated Complaint: BLOOD IN URINE Time Seen by Provider: 06/30/18 20:48 History Source: Patient Exam Limitations: No Limitations - History of Present Illness Initial Comments: 06/30/18 20:53 83 year old man with a significant past medical history of CAD s/p CABG (tipple bypass) (2002), GA w/ stents, HTN, diverticulitis who presents from [facility] for 3 days of bright blood in the urine and multiple painful blood clots passed today after traumatic removal of his cantu catheter 3 days days. The patient states 3 days ago he got up to stand and his cantu bag was attached to the bed when it completely come out. The patient has been urinating without difficulty since cantu removal and does not complain of retention. Of note the patient was recently placed in [place] after admission at this hospital with significant findings of ams 2/2 dementia vs metabolic enceph, urinary retntino and uti. The pt was started on zyprexa. The patient denies abdominal pain, chest pain, shortness of breath, fevers, nausea, vomiting, diarrhea, constipation. Patient takes ASA 06/30/18 21:48 Past History - Past Medical History Allergies/Adverse Reactions: Allergies Allergy/AdvReac Type Severity Reaction Status Date / Time Penicillins Allergy Verified 06/01/18 16:22 Home Medications: Ambulatory Orders Aspirin [ASA -] 81 mg PO DAILY 06/01/18 Lisinopril 20 mg PO DAILY 06/01/18 Meclizine HCl 12.5 mg PO DAILY 06/01/18 Metoprolol Succinate 50 mg PO DAILY 06/01/18 Dorzolamide/Timolol/Pf [Cosopt Pf Eye Drops] 1 each OS BID 06/03/18 Simvastatin 20 mg PO HS 06/05/18 Docusate Sodium [Colace -] 100 mg PO Q12H PRN capsule 06/09/18 Olanzapine [ZyPREXA -] 10 mg PO BID tablet 06/09/18 Polyethylene Glycol 3350 [Miralax 119 gm Btl -] 17 gm PO DAILY bottle 06/09/18 Lisinopril [Prinivil] 20 mg PO DAILY tablet 06/15/18 Tamsulosin HCl [Flomax -] 0.8 mg PO DAILY@0830 #0 cap.er.24h 06/15/18 levoFLOXacin [Levaquin -] 500 mg PO DAILY@0600 5 Days tablet 06/15/18 Cardiac Disorders: Yes (mi w/stents 2005 bypass x 3) COPD: No Dementia: No GI Disorders: Yes (diverticulits) HTN: Yes - Suicide/Smoking/Psychosocial Hx Smoking History: Never smoked Have you smoked in the past 12 months: No Information on smoking cessation initiated: No Hx Alcohol Use: No Drug/Substance Use Hx: No Review of Systems - Review of Systems Able to Perform ROS?: Yes Comments:: 06/30/18 21:52 GENERAL/CONSTITUTIONAL: No fever or chills. No weakness. HEAD, EYES, EARS, NOSE AND THROAT: No change in vision. No ear pain or discharge. No sore throat. CARDIOVASCULAR: No chest pain or shortness of breath RESPIRATORY: No cough, wheezing, or hemoptysis. GASTROINTESTINAL: No nausea, vomiting, diarrhea or constipation. GENITOURINARY: No dysuria, frequency, or change in urination. MUSCULOSKELETAL: No joint or muscle swelling or pain. No neck or back pain. SKIN: No rash NEUROLOGIC: No headache, vertigo, loss of consciousness, or change in strength/ sensation. ENDOCRINE: No increased thirst. No abnormal weight change HEMATOLOGIC/LYMPHATIC: No anemia, easy bleeding, or history of blood clots. ALLERGIC/IMMUNOLOGIC: No hives or skin allergy. Is the patient limited Sinhala proficient: No *Physical Exam - Vital Signs Last Vital Signs Temp Pulse Resp BP Pulse Ox 98.8 F 108 H 19 116/84 97 06/30/18 20:02 06/30/18 20:02 06/30/18 20:02 06/30/18 20:02 06/30/18 20:02 - Physical Exam Comments: 06/30/18 21:50 GENERAL: Awake, alert, and fully oriented, in no acute distress HEAD: No signs of trauma, normocephalic, atraumatic EYES: EOMI, sclera anicteric, conjunctiva clear ENT: oropharynx clear without exudates. Moist mucosa NECK: Normal ROM, supple LUNGS: No distress, speaks full sentences, clear to auscultation bilaterally HEART: Regular rate and rhythm, normal S1 and S2, no murmurs, rubs or gallops, peripheral pulses normal and equal bilaterally. ABDOMEN: Soft, nontender, normoactive bowel sounds. No guarding, no rebound. No masses EXTREMITIES : Normal inspection, Normal range of motion, no edema. No clubbing or cyanosis. NEUROLOGICAL: Cranial nerves II through XII grossly intact. Normal speech, normal gait, no focal sensorimotor deficits SKIN: Warm, Dry, normal turgor, no rashes or lesions noted GENITAL: uncircumcised male, + charlie bright blood in diaper and around urethra, vertical lie of testes, no erythema, lesions or ulcers ED Treatment Course - LABORATORY CBC & Chemistry Diagram: 06/30/18 21:54 06/30/18 21:54 Medical Decision Making - Medical Decision Making 06/30/18 21:47 83 year old man with a significant past medical history of CAD s/p CABG (tipple bypass) (2002), GA w/ stents, HTN, diverticulitis who presents from [facility] for 3 days of bright blood in the urine and multiple painful blood clots passed today after traumatic removal of his cantu catheter 3 days days. The patient states 3 days ago he got up to stand and his cantu bag was attached to the bed when it completely come out. The patient has been urinating without difficulty since cantu removal and does not complain of retention. ED Course: ddx ibnlt: urethral trauma vs renal/bladder calculi less likely transitional cell carcinoma vs rcc no ac use 06/30/18 21:48 cbc, cmp, coags, ua, kidney bladder US 07/01/18 00:02 Kidney/Renal US: without acute findings. Case disucssed with urology Dr. Perkins, he feels that if the patient is not retainin, likely symptoms will stopin 4 days 07/01/18 00:02 labs wnl 07/01/18 01:20 urine dark brown Bladder US: pending ua with uti dose levauin 07/01/18 02:33 Bladder ultrasound w/ retention and concern for infectious cystitis, patient will need urology evaluation patient with trauma and hematuria, will defer catheter until eval as pt likely will need urethrogram plan for admit *DC/Admit/Observation/Transfer Diagnosis at time of Disposition: Hematuria, Acute infective cystitis - Discharge Dispostion Condition at time of disposition: Fair Decision to Admit order: Yes - Referrals - Patient Instructions - Post Discharge Activity
[2018-06-30 22:08] LABS: BASO % 0.8 % (0-2.0); EOS % 8.3 % (0-4.5); HEMATOCRIT 37.8 % (35.4-49); HEMOGLOBIN 12.8 GM/dL (11.7-16.9); LYMPH % 15.8 % (8-40); MCH 30.3 pg (25.7-33.7); MCHC 33.8 g/dl (32.0-35.9); MEAN CELL VOLUME 89.4 fl (80-96); MEAN PLT VOLUME 7.5 fl (7.5-11.1); MONO % 5.8 % (3.8-10.2); NEUT % 69.3 % (42.8-82.8); PLATELET COUNT 209 K/MM3 (134-434); RBC 4.22 M/mm3 (4.00-5.60); RDW 14.6 % (11.9-15.9); WHITE BLOOD COUNT 7.4 K/mm3 (4.0-10.0)
[2018-06-30 22:20] LABS: INR 0.98 (0.83-1.09); PROTHROMBIN TIME (PATIENT) 11.6 SEC (9.7-13.0)
[2018-06-30 22:30] LABS: ALBUMIN 2.9 g/dl (3.4-5.0); BILIRUBIN,TOTAL 0.7 mg/dL (0.2-1); CALCIUM 8.2 mg/dL (8.5-10.1); CREATININE 0.7 mg/dL (0.55-1.3); POTASSIUM 3.9 mmol/L (3.5-5.1); TOT PROT 6.4 g/dl (6.4-8.2)
[2018-07-01 01:24] LABS: EPI CELLS 0.1 /HPF (0-5/HPF); HYALINE CASTS 1 /lpf (0-8); PH,URINE 5.5 (5.0-8.0); URINE APPEARANCE CLOUDY; URINE BACTERIA 56.4 /hpf (NEGATIVE); URINE BILIRUBIN NEGATIVE (NEGATIVE); URINE COLOR DK YELLOW; URINE GLUCOSE (UA) NEGATIVE (NEGATIVE); URINE KETONE NEGATIVE (NEGATIVE); URINE LEUK ESTERASE 1+ (NEGATIVE); URINE NITRITE NEGATIVE (NEGATIVE); URINE PROTEIN 2+ (NEGATIVE); URINE WBC 62 /hpf (0-5)
--- NOTE | 2018-07-01 02:58 | PDOC ---
*Physical Exam - Vital Signs Last Vital Signs Temp Pulse Resp BP Pulse Ox 98.8 F 110 H 19 117/80 95 06/30/18 20:02 06/30/18 23:07 06/30/18 20:02 06/30/18 23:07 06/30/18 23:07 ED Treatment Course - LABORATORY CBC & Chemistry Diagram: 06/30/18 21:54 06/30/18 21:54 - ADDITIONAL ORDERS Additional order review: Laboratory Results 07/01/18 06/30/18 06/30/18 01:11 21:54 21:54 PT with INR 11.60 INR 0.98 PTT (Actin FS) 31.0 Sodium 141 Potassium 3.9 Chloride 108 H Carbon Dioxide 27 Anion Gap 6 L BUN 29 H Creatinine 0.7 Est GFR (CKD-EPI)AfAm 102.58 Est GFR (CKD-EPI)NonAf 88.50 Random Glucose 132 H Calcium 8.2 L Total Bilirubin 0.7 AST 20 ALT 23 Alkaline Phosphatase 79 Total Protein 6.4 Albumin 2.9 L Urine Color Dk yellow Urine Appearance Cloudy Urine pH 5.5 Ur Specific [place] 1.021 Urine Protein 2+ H Urine Glucose (UA) Negative Urine Ketones Negative Urine Blood 3+ H Urine Nitrite Negative Urine Bilirubin Negative Urine Urobilinogen 1.0 Ur Leukocyte Esterase 1+ H Urine WBC (Auto) 62 Urine Casts (Auto) 1 U Epithel Cells (Auto) 0.1 Urine Bacteria (Auto) 56.4 06/30/18 21:54 RBC 4.22 MCV 89.4 MCHC 33.8 RDW 14.6 MPV 7.5 Neutrophils % 69.3 Lymphocytes % 15.8 D Monocytes % 5.8 Eosinophils % 8.3 H D Basophils % 0.8 Medical Decision Making - Medical Decision Making 07/01/18 02:58 Patient Name: ELVA MEDINA THIS IS A PRELIMINARY REPORT FROM [facility] DATE OF SERVICE: 2018-07-01 01:21:02 IMAGES: 13 EXAM: Ultrasound bladder HISTORY: 83-year-old male with hematuria. COMPARISON: None. FINDINGS: Prevoid bladder volume 876 mL. Post void bladder volume 451 mL. Abnormal nonspecific 7 mm bladder wall thickening may be due to infectious cystitis. Nodular nonspecific prostatomegaly measures 4.5 x 4.7 x 5.9 cm. IMPRESSION: Nonspecific abnormal bladder wall thickening may be due to infectious cystitis. Moderate post void bladder residual. Nodular nonspecific prostatomegaly. If clinically indicated recommend correlation with a PSA level. 07/01/18 03:07 Pt will be treated with levaquin, as UA shows a UTI and imaging shows a cystitis. He will be admitted because he has a sizable PVR, and he had urethral trauma prior to arrival, so we will not cantu him blindly; rather, recommend urology consult. Pt is able to urinate some and placing a cantu is not emergent necessity tonight, Can wait till tomorrow. Pt will be admitted. *DC/Admit/Observation/Transfer - Discharge Dispostion Condition at time of disposition: Fair - Referrals - Patient Instructions - Post Discharge Activity
[2018-07-01 03:16] LABS: URINE RBC 540 /hpf (0-4)
[2018-07-01] MEDS ORDERED: DOCUSATE SODIUM 100 MG CAPSULE (FP) PO PRN (03:26)
[2018-07-01] MEDS ORDERED: VANCOMYCIN 1 GM in D5W (PRE-DOCKED) 1,000 MG/250 ML IVPB ONE (03:32)
--- NOTE | 2018-07-01 03:34 | HP ---
CHIEF COMPLAINT: PCP: HISTORY OF PRESENT ILLNESS: 83yo M from [facility] today after traumatic cantu removal. Pt and at bedside report pt had his cantu snagged on his bedpost which ended up forcibly removing it. Pt began to have bright red blood from his penis for the next 3 days with notable clots. Pt reports he takes ASA 81mg qdaily for cardiac reasons and has been taking it daily. Pt's reports the pt's blood has been decreasing over the past few days. He denies any dysuria, hesitancy, retention at this point. Of note pt was previously here for combative behavior with questionable sundowning. During his stay he was found to have UTI and urinary retention for which the cantu was placed and he was treated with Levaquin. Upon his discharge he failed his TOV and was to see Dr. Rutherford on an outpatient basis for cantu assessment and possible removal at that time, however he was never able to go. His Levaquin dose was completed appropriately and he has not taken any antibiotic for the past 7-8 days. ER course was notable for: (1) (2) (3) Recent Travel: PAST MEDICAL HISTORY: PAST SURGICAL HISTORY: Social History: Smoking: Alcohol: Drugs: Family History: Allergies Penicillins Allergy (Verified 06/01/18 16:22) HOME MEDICATIONS: Home Medications Medication Instructions Recorded Aspirin [ASA -] 81 mg PO DAILY 06/01/18 Meclizine HCl 12.5 mg PO DAILY 06/01/18 Metoprolol Succinate 50 mg PO DAILY 06/01/18 Dorzolamide/Timolol/Pf [Cosopt Pf 1 each OS BID 06/03/18 Eye Drops] Simvastatin 20 mg PO HS 06/05/18 Docusate Sodium [Colace -] 100 mg PO Q12H PRN capsule 06/09/18 Olanzapine [ZyPREXA -] 10 mg PO BID tablet 06/09/18 Polyethylene Glycol 3350 [Miralax 17 gm PO DAILY bottle 06/09/18 119 gm Btl -] Lisinopril [Prinivil] 20 mg PO DAILY tablet 06/15/18 Tamsulosin HCl [Flomax -] 0.8 mg PO DAILY@0830 #0 cap.er.24h 06/15/18 REVIEW OF SYSTEMS CONSTITUTIONAL: Absent: fever, chills, diaphoresis, generalized weakness, malaise, loss of appetite, weight change HEENT: Absent: rhinorrhea, nasal congestion, throat pain, throat swelling, difficulty swallowing, mouth swelling, ear pain, eye pain, visual changes CARDIOVASCULAR: Absent: chest pain, syncope, palpitations, irregular heart rate, lightheadedness , peripheral edema RESPIRATORY: Absent: cough, shortness of breath, dyspnea with exertion, orthopnea, wheezing, stridor, hemoptysis GASTROINTESTINAL: Absent: abdominal pain, abdominal distension, nausea, vomiting, diarrhea, constipation, melena, hematochezia GENITOURINARY: Absent: dysuria, frequency, urgency, hesitancy, hematuria, flank pain, genital pain MUSCULOSKELETAL: Absent: myalgia, arthralgia, joint swelling, back pain, neck pain SKIN: Absent: rash, itching, pallor HEMATOLOGIC/IMMUNOLOGIC: Absent: easy bleeding, easy bruising, lymphadenopathy, frequent infections ENDOCRINE: Absent: unexplained weight gain, unexplained weight loss, heat intolerance, cold intolerance NEUROLOGIC: Absent: headache, focal weakness or paresthesias, dizziness, unsteady gait, seizure, mental status changes, bladder or bowel incontinence PSYCHIATRIC: Absent: anxiety, depression, suicidal or homicidal ideation, hallucinations. PHYSICAL EXAMINATION Vital Signs - 24 hr 06/30/18 06/30/18 20:02 23:07 Temperature 98.8 F Pulse Rate 108 H Pulse Rate [ 110 H Left Radial] Respiratory 19 Rate Blood Pressure 116/84 Blood Pressure 117/80 [Right Arm] O2 Sat by Pulse 97 95 Oximetry (%) GENERAL: Awake, alert, and fully oriented, in no acute distress. HEAD: Normal with no signs of trauma. EYES: Pupils equal, round and reactive to light, extraocular movements intact, sclera anicteric, conjunctiva clear. No lid lag. EARS, NOSE, THROAT: Ears normal, nares patent, oropharynx clear without exudates. Moist mucous membranes. NECK: Normal range of motion, supple without lymphadenopathy, JVD, or masses. LUNGS: Breath sounds equal, clear to auscultation bilaterally. No wheezes, and no crackles. No accessory muscle use. HEART: Regular rate and rhythm, normal S1 and S2 without murmur, rub or gallop. ABDOMEN: Soft, nontender, not distended, normoactive bowel sounds, no guarding, no rebound, no masses. No hepatomegaly or splenomegaly. MUSCULOSKELETAL: Normal range of motion at all joints. No bony deformities or tenderness. No CVA tenderness. UPPER EXTREMITIES: 2+ pulses, warm, well-perfused. No cyanosis. No clubbing. No peripheral edema. LOWER EXTREMITIES: 2+ pulses, warm, well-perfused. No calf tenderness. No peripheral edema. NEUROLOGICAL: Cranial nerves II-XII intact. Normal speech. Normal gait. PSYCHIATRIC: Cooperative. Good eye contact. Appropriate mood and affect. SKIN: Warm, dry, normal turgor, no rashes or lesions noted, normal capillary refill. Laboratory Results - last 24 hr 06/30/18 06/30/18 06/30/18 21:54 21:54 21:54 WBC 7.4 RBC 4.22 Hgb 12.8 Hct 37.8 MCV 89.4 MCH 30.3 MCHC 33.8 RDW 14.6 Plt Count 209 D MPV 7.5 Absolute Neuts (auto) 5.1 Neutrophils % 69.3 Lymphocytes % 15.8 D Monocytes % 5.8 Eosinophils % 8.3 H D Basophils % 0.8 Nucleated RBC % 0 PT with INR 11.60 INR 0.98 PTT (Actin FS) 31.0 Sodium 141 Potassium 3.9 Chloride 108 H Carbon Dioxide 27 Anion Gap 6 L BUN 29 H Creatinine 0.7 Est GFR (CKD-EPI)AfAm 102.58 Est GFR (CKD-EPI)NonAf 88.50 Random Glucose 132 H Calcium 8.2 L Total Bilirubin 0.7 AST 20 ALT 23 Alkaline Phosphatase 79 Total Protein 6.4 Albumin 2.9 L Urine Color Urine Appearance Urine pH Ur Specific [place] Urine Protein Urine Glucose (UA) Urine Ketones Urine Blood Urine Nitrite Urine Bilirubin Urine Urobilinogen Ur Leukocyte Esterase Urine WBC (Auto) Urine RBC (Auto) Urine Casts (Auto) U Epithel Cells (Auto) Urine Bacteria (Auto) Urine Yeast (Auto) 07/01/18 01:11 WBC RBC Hgb Hct MCV MCH MCHC RDW Plt Count MPV Absolute Neuts (auto) Neutrophils % Lymphocytes % Monocytes % Eosinophils % Basophils % Nucleated RBC % PT with INR INR PTT (Actin FS) Sodium Potassium Chloride Carbon Dioxide Anion Gap BUN Creatinine Est GFR (CKD-EPI)AfAm Est GFR (CKD-EPI)NonAf Random Glucose Calcium Total Bilirubin AST ALT Alkaline Phosphatase Total Protein Albumin Urine Color Dk yellow Urine Appearance Cloudy Urine pH 5.5 Ur Specific [place] 1.021 Urine Protein 2+ H Urine Glucose (UA) Negative Urine Ketones Negative Urine Blood 3+ H Urine Nitrite Negative Urine Bilirubin Negative Urine Urobilinogen 1.0 Ur Leukocyte Esterase 1+ H Urine WBC (Auto) 62 Urine RBC (Auto) 540 Urine Casts (Auto) 1 U Epithel Cells (Auto) 0.1 Urine Bacteria (Auto) 56.4 Urine Yeast (Auto) No Result Required. ASSESSMENT/PLAN: Hematuria ? unresolved complicated UTI CAD s/p CABG HTN BPH Hematuria 2/2 to cantu trauma No active bleeding currently; no blood at penile meatus Can consult Urology for guidance regarding cystoscopy or not Bladder scan for evaluation of urine retention post-trauma Monitor H/H Held ASA for now Previous cultures showing MDR organism for which Levaquin does not cover (CFU > 100K) Given UA showing minimal epithelial cells with WBC 62 and Bacteria 56 will cover with Vancomycin 1gm (15-20mg/kg) x1 dose Monitor cultures and fever trend for decision on continuing ABX NS @ 75cc/hr Bladder ultrasound reviewed; awaiting report Renal ultrasound without any hydronephrosis and possible b/l nonobstructing calculi located with incidental cortical cysts noted Zyprexa dose restarted based on prior discharge Rest of home medications restarted FEN: Fluids: NS@75cc/hr Electrolyte abnormalities: Nutrition: Sodium controlled PPX: DVT - Low risk; obs and risk of bleed higher GI - Not indicated Dispo: Observation Case discussed with Dr. Carrera.
--- NOTE | 2018-07-01 03:36 | PN ---
Teaching Attending Note Name of Resident: Selwyn Biswas ATTENDING PHYSICIAN STATEMENT I saw and evaluated the patient. I reviewed the resident's note and discussed the case with the resident. I agree with the resident's findings and plan as documented. SUBJECTIVE: Seen and examined; please refer to resident note for further historical information. Briefly, this is a 83 y/o male with a PMH as documented presenting with hematuria after pulling his cantu out on accident at [facility]. He had the cantu in for urinary retention. He has been able to urinate since the cantu has been pulled; initially this was quite painful and now he denies dysuria but endorses frequency. Has grown out MDROs in the past. No fevers or white count. The hematuria slightly improved but did not resolve so he came to the ER. He is on ASA and has been compliant with therapy. Bladder scan pending. 10 sys ROS done and negative aside from HPI PMH, PSH, FH, SH reviewed Home Medications Medication Instructions Recorded Aspirin [ASA -] 81 mg PO DAILY 06/01/18 Meclizine HCl 12.5 mg PO DAILY 06/01/18 Metoprolol Succinate 50 mg PO DAILY 06/01/18 Dorzolamide/Timolol/Pf [Cosopt Pf 1 each OS BID 06/03/18 Eye Drops] Simvastatin 20 mg PO HS 06/05/18 Docusate Sodium [Colace -] 100 mg PO Q12H PRN capsule 06/09/18 Olanzapine [ZyPREXA -] 10 mg PO BID tablet 06/09/18 Polyethylene Glycol 3350 [Miralax 17 gm PO DAILY bottle 06/09/18 119 gm Btl -] Lisinopril [Prinivil] 20 mg PO DAILY tablet 06/15/18 Tamsulosin HCl [Flomax -] 0.8 mg PO DAILY@0830 #0 cap.er.24h 06/15/18 OBJECTIVE: VS, labs, imaging reviewed NAD, AAO, resting comfortably in bed Normal external genetalia; some blood in diaper but not large amount NC AT EOMI PERRLA RRR to slight tachy with s1/2 no mgr Lungs CTAB, w/ sym exp NT ND +BS Normal mood, appropriate behavior EKG requested in ER; pending Bladder scan pending ASSESSMENT AND PLAN: Patient presents with hematuria; possible UTI noted 1) Hematuria -Due to traumatic cantu removal; no obstruction but checking PVR with bladder scan. -Consult urology; hold AM ASA dose 2) Hx Urinary Obstruction -He is urinating without cantu and has been for some days. He is on flomax 0.8 QD so will continue this. If obstruction occurrs again will start finasteride and replace catnu. Having urology see him. 3) Possible cystitis -Patient endorses frequency; UA with recent cantu being risk for this. No WBC or fevers. Prior Cx's noted; good sn to the levaquin given in ER with some orgs , but did have MDRO that was Sn to vanco so will give 1 dose. Between that and the LQ will be covered for 24 hours if indeed infected. In interem can followup cultures, trend CBC, and consider ID consult. 4) Hx , etc. -Normal mentation now per ;
[2018-07-01] MEDS ORDERED: SODIUM CHLORIDE 1,000 ML IV SCH (03:45)
[2018-07-01 05:58] VITALS: BMI 22.6
--- NOTE | 2018-07-01 07:49 | HOSP ---
Subjective - Review of Symptoms Subjective: currently asymptomatic. claims pepe fell out a few days ago and noted a lot of hematuria at that time. which has since cleared. does not have the sensation of incomplete emptying. denies CP, SOB, fever, chills, hematuria, dysuria or hematuria Current Medications Generic Name Dose Route Start Last Admin Trade Name Freq PRN Reason Stop Dose Admin Atorvastatin Calcium 10 mg 07/01/18 22:00 Lipitor - PO HS THIAGO Docusate Sodium 100 mg 07/01/18 03:26 Colace - PO Q12H PRN CONSTIPATION Sodium Chloride 1,000 mls @ 75 mls/hr 07/01/18 03:45 07/01/18 03:58 Normal Saline - IV 75 mls/hr ASDIR THIAGO Administration Lisinopril 20 mg 07/01/18 10:00 Prinivil PO DAILY THIAGO Meclizine HCl 12.5 mg 07/01/18 10:00 Antivert - PO DAILY THIAGO Metoprolol Succinate 50 mg 07/01/18 10:00 Toprol Xl - PO DAILY THIAGO Olanzapine 10 mg 07/01/18 10:00 Zyprexa - PO BID THIAGO Polyethylene Glycol 17 gm 07/01/18 10:00 Miralax (For Daily Use) - PO DAILY THIAGO Tamsulosin HCl 0.8 mg 07/01/18 08:30 Flomax - PO DAILY@0830 THIAGO Last Vital Signs Temp Pulse Resp BP Pulse Ox 98.4 F 108 H 20 134/74 98 07/01/18 07:02 07/01/18 07:02 07/01/18 07:02 07/01/18 07:02 07/01/18 03:25 General NAD CV S1 S2 RRR no murmur/rub/gallop Lungs CTA B/L no wheezing/rales/rhonchi Abdomen soft ND +suprapubic tenderness no distention Extremities no pedal edema CBCD WBC 7.4 K/mm3 (4.0-10.0) 06/30/18 21:54 RBC 4.22 M/mm3 (4.00-5.60) 06/30/18 21:54 Hgb 12.8 GM/dL (11.7-16.9) 06/30/18 21:54 Hct 37.8 % (35.4-49) 06/30/18 21:54 MCV 89.4 fl (80-96) 06/30/18 21:54 MCHC 33.8 g/dl (32.0-35.9) 06/30/18 21:54 RDW 14.6 % (11.9-15.9) 06/30/18 21:54 Plt Count 209 K/MM3 (134-434) D 06/30/18 21:54 MPV 7.5 fl (7.5-11.1) 06/30/18 21:54 CMP Sodium 141 mmol/L (136-145) 06/30/18 21:54 Potassium 3.9 mmol/L (3.5-5.1) 06/30/18 21:54 Chloride 108 mmol/L (98-107) H 06/30/18 21:54 Carbon Dioxide 27 mmol/L (21-32) 06/30/18 21:54 Anion Gap 6 MMOL/L (8-16) L 06/30/18 21:54 BUN 29 mg/dL (7-18) H 06/30/18 21:54 Creatinine 0.7 mg/dL (0.55-1.3) 06/30/18 21:54 Calcium 8.2 mg/dL (8.5-10.1) L 06/30/18 21:54 Total Bilirubin 0.7 mg/dL (0.2-1) 06/30/18 21:54 AST 20 U/L (15-37) 06/30/18 21:54 ALT 23 U/L (13-61) 06/30/18 21:54 Alkaline Phosphatase 79 U/L (45-117) 06/30/18 21:54 Total Protein 6.4 g/dl (6.4-8.2) 06/30/18 21:54 Albumin 2.9 g/dl (3.4-5.0) L 06/30/18 21:54 A.P 83yo M [facility] CAD s/p CABG (2002), HTN, diverticulitis, with recent hospitalization with treatment for UTI and urinary retention where pt was discharged with cantu in place and levaquin x5 days. Pt was sent from [facility] due to pulling out his cantu catheter and developed hematuria. Reports no difficulty urinating since then 1. Hematuria- traumatic. bladder u/s done to r/o retention. awaiting official results. none appreciated on exam. hematuria resolved. awaiting urology evaluation. likely does not require re-placement of cantu. 2. UTI- last cx was polymicrobial and was treated with levaquin x5 days. received vanco and levaquin x1. will cont with Vanco. pending Cx report. PCN allergy noted 3. CAD s/p CABG- asa currently on hold. will re-start after repeat cbc if hgb is stable. cont home medication 4. HTN- controlled. cont home medication 5. DVT ppx- SCD. hold pharmacologic anticoagulation Physical Examination Vital Signs: Vital Signs Temperature 98.4 F 07/01/18 07:02 Pulse Rate 108 H 07/01/18 07:02 Respiratory Rate 20 07/01/18 07:02 Blood Pressure 134/74 07/01/18 07:02 O2 Sat by Pulse Oximetry (%) 98 07/01/18 03:25 Labs: CBC, BMP 06/30/18 21:54 06/30/18 21:54
[2018-07-01] MEDS: TAMSULOSIN HCL 0.4 MG CAP PO SCH (08:57)
[2018-07-01] MEDS ORDERED: PT OWN MED DRAWER 7, Y5N ONE ×3 (09:36→21:06)
[2018-07-01] MEDS: OLANZapine 10 MG TABLET PO SCH ×2 (09:41→21:42)
[2018-07-01] MEDS: LISINOPRIL 20 MG TABLET (FP) PO SCH (09:41)
[2018-07-01] MEDS: MECLIZINE HCL 12.5 MG TABLET PO SCH (09:41)
[2018-07-01] MEDS: POLYETHYLENE GLYCOL 3350 119 GM BTL PO SCH (09:45)
[2018-07-01 10:24] LABS: HEMATOCRIT 34.1 % (35.4-49); HEMOGLOBIN 11.6 GM/dL (11.7-16.9); MCH 30.2 pg (25.7-33.7); MEAN CELL VOLUME 88.7 fl (80-96); MEAN PLT VOLUME 7.4 fl (7.5-11.1); PLATELET COUNT 191 K/MM3 (134-434); RBC 3.84 M/mm3 (4.00-5.60); RDW 14.3 % (11.9-15.9); WHITE BLOOD COUNT 6.1 K/mm3 (4.0-10.0)
[2018-07-01 10:50] LABS: CREATININE 0.7 mg/dL (0.55-1.3); PHOSPHOROUS 2.2 mg/dL (2.5-4.9); POTASSIUM 3.9 mmol/L (3.5-5.1)
--- NOTE | 2018-07-01 10:50 | CON.GU ---
Consult Consult Specialty:: urology Reason for Consultation:: retention/traumatic removal of cantu - History of Present Illness Chief Complaint: urinary retention s/p traumatic removal of catheter History of Present Illness: Patient is an 83 year old male with history of urinary retention who traumatically removed his catheter. The patient suffers from dementia andis unable to give a history. PVR is greater than 900 cc - History Source History Provided By: Medical Record, Caregiver Limitations to Obtaining History: Dementia - Alcohol/Substance Use Hx Alcohol Use: No - Smoking History Smoking history: Never smoked Have you smoked in the past 12 months: No - Social History Usual Living Arrangement: With Spouse Home Medications - Allergies Allergies/Adverse Reactions: Allergies Allergy/AdvReac Type Severity Reaction Status Date / Time Penicillins Allergy Verified 06/01/18 16:22 - Home Medications Home Medications: Ambulatory Orders Aspirin [ASA -] 81 mg PO DAILY 06/01/18 Meclizine HCl 12.5 mg PO DAILY 06/01/18 Metoprolol Succinate 50 mg PO DAILY 06/01/18 Dorzolamide/Timolol/Pf [Cosopt Pf Eye Drops] 1 each OS BID 06/03/18 Simvastatin 20 mg PO HS 06/05/18 Docusate Sodium [Colace -] 100 mg PO Q12H PRN capsule 06/09/18 Olanzapine [ZyPREXA -] 10 mg PO BID tablet 06/09/18 Polyethylene Glycol 3350 [Miralax 119 gm Btl -] 17 gm PO DAILY bottle 06/09/18 Lisinopril [Prinivil] 20 mg PO DAILY tablet 06/15/18 Tamsulosin HCl [Flomax -] 0.8 mg PO DAILY@0830 #0 cap.er.24h 06/15/18 Physical Exam- Vital Signs: Vital Signs Temperature 98.4 F 07/01/18 07:02 Pulse Rate 108 H 07/01/18 07:02 Respiratory Rate 20 07/01/18 07:02 Blood Pressure 134/74 07/01/18 07:02 O2 Sat by Pulse Oximetry (%) 98 07/01/18 03:25 Constitutional: Yes: Well Nourished, No Distress, Calm Eyes: Yes: WNL, Conjunctiva Clear, EOM Intact HENT: Yes: WNL, Atraumatic, Normocephalic Neck: Yes: WNL, Supple, Trachea Midline Cardiovascular: Yes: WNL, Regular Rate and Rhythm Respiratory: Yes: WNL, Regular Gastrointestinal: Yes: WNL, Normal Bowel Sounds, Soft Renal/: Yes: Bladder Distention Kidneys: Yes: WNL Pelvis: Yes: Bladder Palpable Testicles: Yes: WNL Scrotum: Yes: WNL Penis: Yes: WNL (3+ prostate) Labs: CBC, BMP 07/01/18 09:47 Imaging - Results Ultrasound: Report Reviewed Assessment/Plan impression bph on flomax with urinary retention s/p traumatic cantu removal uti procedure note cantu catheter placed and 1000 cc drained no hematuria plan maintain cantu continue antibiotics consider TURP
--- NOTE | 2018-07-01 10:55 | EKG ---
Test Reason : Blood Pressure : / mmHG Vent. Rate : 100 BPM Atrial Rate : 100 BPM P-R Int : 164 ms QRS Dur : 082 ms QT Int : 356 ms P-R-T Axes : 049 -60 061 degrees QTc Int : 459 ms NORMAL SINUS RHYTHM LEFT AXIS DEVIATION ABNORMAL ECG WHEN COMPARED WITH ECG OF 30-JUN-2018 22:50, NO SIGNIFICANT CHANGE WAS FOUND Confirmed by GINNA WOLFE MD ([id number]) on 07/01/2018 10:55:49 AM Referred By: Confirmed By:GINNA WOLFE MD
[2018-07-01] MEDS ORDERED: NAPH,MB-DB/K PH,MBDB POWDER PACKET PO ONE (12:48)
--- NOTE | 2018-07-01 14:41 | PDOC ---
Documentation entered by Antolin Wei SCRIBE, acting as scribe for Luz Elena Dixon MD. Luz Elena Dixon MD: This documentation has been prepared by the Eriberto major Daniel, SCRIBE, under my direction and personally reviewed by me in its entirety. I confirm that the documentation accurately reflects all work, treatment, procedures, and medical decision making performed by me. Attending Attestation - Resident Resident Name: Yamileth Ignacio - ED Attending Attestation I have performed the following: I have examined & evaluated the patient, The case was reviewed & discussed with the resident, I agree w/resident's findings & plan, Exceptions are as noted - HPI HPI: 06/30/18 22:24 The patient is an 83 year old male with a past medical history of CAD s/p CABG ( triple bypass 2002), [place] with stents, HTN, and diverticulitis here today from [facility] for evaluation of hematuria. The patient reports that his cantu catheter was removed traumatically 3 days ago when he stood up from bed. He notes no urinary retention but notes blood in his urine and is passing multiple painful blood clots. Patient denies headache, lightheadedness, weakness/numbness. Denies fever, chills. Denies chest pain, shortness of breath. Denies nausea, vomiting, diarrhea, abdominal pain. Allergies: penicillins - Physicial Exam PE: 07/01/18 01:33 GENERAL: Awake, alert, and fully oriented, in no acute distress LUNGS: Breath sounds equal, clear to auscultation bilaterally. No wheezes, and no crackles HEART: Regular rate and rhythm, normal S1 and S2, no murmurs, rubs or gallops ABDOMEN: Soft, nontender, normoactive bowel sounds. No guarding, no rebound. No masses : some blood at urethral meatus, 1 dark clot in the diaper. Able to void twice in the ED, urine is bloody but no bright red blood and no long passing clots EXTREMITIES: Normal range of motion, no edema. No cords, erythema, or tenderness NEUROLOGICAL: Normal speech, cranial nerves intact, equal strength and sensation b/l SKIN: Warm, Dry, normal turgor, no rashes or lesions noted. - Medical Decision Making 07/01/18 02:00 83yo M with MMP presents to the ED with hematuria after traumatic removal of cantu. Concern for urethral injury. Able to void in the ED, mostly bloody urine UA with 1+ LE, many reds, some whites, possible infection? Labs thus far wnl, normal creatinine Kidney sono normal, however bladder was not imaged Case discussed with Dr Garcia, recommends that if pt is not retaining, he can be DC because injury will likely repair itself and blood will resolve within a few days Bladder US pending, if evidence of retention, plan for admission for urology evaluation and possible cantu placement. No need at this time to place cantu as pt is able to void Case signed out to overnight attending for further mgmt/dispo
[2018-07-01] MEDS: ATORVASTATIN CA 10 MG TABLET (FP) PO SCH (21:16)
[2018-07-01] MEDS: [UNRECOGNIZED DRUG - OTHER] OS SCH (21:17)
[2018-07-01] MEDS: DORZOLAMIDE OS SCH (21:17)
[2018-07-01] MEDS: TIMOLOL 0.5% OS SCH (21:17)
[2018-07-02 07:05] LABS: HEMATOCRIT 34.1 % (35.4-49); HEMOGLOBIN 11.6 GM/dL (11.7-16.9); MCH 30.3 pg (25.7-33.7); MCHC 34.1 g/dl (32.0-35.9); MEAN PLT VOLUME 7.8 fl (7.5-11.1); PLATELET COUNT 205 K/MM3 (134-434); RBC 3.83 M/mm3 (4.00-5.60); RDW 14.8 % (11.9-15.9); WHITE BLOOD COUNT 5.4 K/mm3 (4.0-10.0)
[2018-07-02] MEDS: TAMSULOSIN HCL 0.4 MG CAP PO SCH (08:42)
--- NOTE | 2018-07-02 10:09 | PN ---
Physical Exam: SUBJECTIVE: Pt sleeping well this morning. Pt denies any pain or discomfort at this point. No lightheadedness/dizziness. Hematuria seemed to cease from cantu with minimal pink urine in collection bag. OBJECTIVE: Vital Signs Period Temp Pulse Resp BP Sys/Schneider Pulse Ox Last 24 Hr 97.4 F-98.8 F 72-109 18-20 114-138/64-80 96-99 GENERAL: NAD, awake, alert, orientation with minor memory loss HEENT: NC/AT, ADELITA, MMM LUNGS: CTA bilaterally, no wheezes, no crackles, no accessory muscle use. HEART: RRR, S1, S2 without murmur ABDOMEN: Soft, NT/ND, normoactive bowel sounds, no guarding, no rebound : No blood from penile meatus, no edema noted, cantu in place EXTREMITIES: 2+ DP pulses, warm, well-perfused, no edema. SKIN: Warm, dry,no rashes or lesions noted Laboratory Results 07/01/18 07/01/18 07/02/18 09:47 09:47 05:30 WBC 6.1 5.4 RBC 3.84 L 3.83 L Hgb 11.6 L 11.6 L Hct 34.1 L 34.1 L MCV 88.7 89.0 MCH 30.2 30.3 MCHC 34.0 34.1 RDW 14.3 14.8 Plt Count 191 205 MPV 7.4 L 7.8 Sodium 140 Potassium 3.9 Chloride 107 Carbon Dioxide 27 Anion Gap 6 L BUN 20 H Creatinine 0.7 Est GFR (CKD-EPI)AfAm 102.58 Est GFR (CKD-EPI)NonAf 88.50 Random Glucose 167 H Calcium 8.0 L Phosphorus 2.2 L 07/02/18 05:30 WBC RBC Hgb Hct MCV MCH MCHC RDW Plt Count MPV Sodium Potassium Chloride Carbon Dioxide Anion Gap BUN Creatinine Est GFR (CKD-EPI)AfAm Est GFR (CKD-EPI)NonAf Random Glucose Calcium Phosphorus 2.6 Active Medications Generic Name Dose Route Start Last Admin Trade Name Freq PRN Reason Stop Dose Admin Atorvastatin Calcium 10 mg 07/01/18 22:00 07/01/18 21:16 Lipitor - PO 10 mg HS THIAGO Administration Docusate Sodium 100 mg 07/01/18 03:26 Colace - PO Q12H PRN CONSTIPATION Lisinopril 20 mg 07/01/18 10:00 07/01/18 09:41 Prinivil PO 20 mg DAILY THIAGO Administration Meclizine HCl 12.5 mg 07/01/18 10:00 07/01/18 09:41 Antivert - PO 12.5 mg DAILY THIAGO Administration Metoprolol Succinate 50 mg 07/01/18 10:00 07/01/18 09:41 Toprol Xl - PO 50 mg DAILY THIAGO Administration Non-Formulary Med [ 1 each 07/01/18 22:00 07/01/18 21:17 Cosopt Pf ( OS 1 each Dorzolamide 2% / BID THIAGO Administration Timolol 0.5%) Opth Ellen] Olanzapine 10 mg 07/01/18 10:00 07/01/18 21:42 Zyprexa - PO 10 mg BID THIAGO Administration Polyethylene Glycol 17 gm 07/01/18 10:00 07/01/18 09:45 Miralax (For Daily Use) - PO 17 g DAILY THIAGO Administration Tamsulosin HCl 0.8 mg 07/01/18 08:30 07/02/18 08:42 Flomax - PO 0.8 mg DAILY@0830 THIAGO Administration Vancomycin HCl 1,000 mg 07/02/18 09:55 Vancomycin (Pre-Docked) IVPB 07/02/18 09:56 ONCE ONE Protocol ASSESSMENT/PLAN: Hematuria UTI CAD s/p CABG HTN Hematuria clearing today with replacement of cantu over the weekend 2/2 to urinary retention. Holding ASA given hematuria for now Urine culture growing Coag negative staph which is similar to previous MDR staph seen on last admission --Await speciation --Consult ID for antibiotics --One-time dose of Vancomycin 1gm (15-20mg/kg) now given bacteriocidal properties until ID evaluation (total day 2 ABX with dose) --PCN allergy noted --Isolation precautions for MDR urine HTN controlled. Continue home regiment: Toprol XL 50mg qdaily Lisinopril 20mg qDaily FEN: Fluids: None indicated currently Electrolyte abnormalities: None Nutrition: Sodium controlled diet PPX: DVT - SCDs given hematuria GI- Not indicated currently Consults on board: Dr. Rutherford, Dr. Juarez. Appreciate recommendations Dispo: continue monitoring and speciation of urine culture Case discussed with Dr. Stepan Biswas, DO - IM PGY-2 Visit type - Emergency Visit Emergency Visit: Yes ED Registration Date: 07/01/18 Care time: The patient presented to the Emergency Department on the above date and was hospitalized for further evaluation of their emergent condition. - New Patient This patient is new to me today: No - Critical Care Critical Care patient: No
[2018-07-02] MEDS ORDERED: VANCOMYCIN 1 GM in D5W (PRE-DOCKED) 1,000 MG/250 ML IVPB ONE (10:30)
[2018-07-02] MEDS ORDERED: PT OWN MED DRAWER 7, Y5N ONE ×2 (10:40→21:59)
[2018-07-02] MEDS: [UNRECOGNIZED DRUG - OTHER] OS SCH ×2 (10:49→22:04)
[2018-07-02] MEDS: OLANZapine 10 MG TABLET PO SCH ×2 (10:49→22:04)
[2018-07-02] MEDS: DORZOLAMIDE OS SCH ×2 (10:49→22:04)
[2018-07-02] MEDS: TIMOLOL 0.5% OS SCH ×2 (10:49→22:04)
[2018-07-02] MEDS: MECLIZINE HCL 12.5 MG TABLET PO SCH (10:51)
[2018-07-02] MEDS: LISINOPRIL 20 MG TABLET (FP) PO SCH (10:52)
[2018-07-02] MEDS: POLYETHYLENE GLYCOL 3350 119 GM BTL PO SCH (10:59)
--- NOTE | 2018-07-02 11:22 | PN ---
Teaching Attending Note Name of Resident: Selwyn Biswas ATTENDING PHYSICIAN STATEMENT I saw and evaluated the patient. I reviewed the resident's note and discussed the case with the resident. I agree with the resident's findings and plan as documented. SUBJECTIVE:states he feels better since cantu reinserted. denies CP, SOB, fever , chills, N/V/C/D bladder scna showing retention and cantu reinserted by urology OBJECTIVE: Last Vital Signs Temp Pulse Resp BP Pulse Ox 98.8 F 72 18 131/68 99 07/02/18 06:00 07/02/18 06:00 07/02/18 06:00 07/02/18 06:00 07/01/18 19:00 General NAD Abdomen soft +suprapubic tenderness ASSESSMENT AND PLAN: 83[facility] HTN, diverticulitis, with recent hospitalization with treatment for UTI and urinary retention where pt was discharged with cantu in place and levaquin x5 days. Pt was sent from [facility] ([place], [place]) due to pulling out his cantu catheter and developed hematuria. Reports no difficulty urinating since then 1. Hematuria- traumatic. bladder u/s + for retention. cantu reinserted. initially a lot of blood which appears to be clearing and more pink now. will need TURP done as outpatient once abx are completed.Hgb stable. urology on board. 2. UTI- last cx was polymicrobial and was treated with levaquin x5 days. CX now showing what was likely MDR in the past. will consult ID. cont with vanco until c&s available. PCN allergy noted 3. CAD s/p CABG- re-start asa as hgb is stable. cont home medication 4. HTN- controlled. cont home medication 5. DVT ppx- hep sq
--- NOTE | 2018-07-02 12:37 | EKG ---
Test Reason : Blood Pressure : / mmHG Vent. Rate : 099 BPM Atrial Rate : 099 BPM P-R Int : 166 ms QRS Dur : 080 ms QT Int : 340 ms P-R-T Axes : 039 -57 053 degrees QTc Int : 436 ms NORMAL SINUS RHYTHM LEFT AXIS DEVIATION INFERIOR INFARCT , AGE UNDETERMINED ABNORMAL ECG Confirmed by GINNA WOLFE MD ([id number]) on 07/02/2018 12:36:35 PM Referred By: Confirmed By:GINNA WOLFE MD
[2018-07-02] MEDS: HEPARIN NA (PORCINE) 5,000 UNITS/ML 1ML VIAL SQ SCH ×2 (13:45→22:03)
--- NOTE | 2018-07-02 14:06 | CON.ID ---
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[employer]: Yes: Dementia Cardio/Vascular: Yes: CAD, HTN Gastrointestinal: Yes: Diverticulitis Renal/: Yes: BPH, Other (urinary retention) - Past Surgical History Past Surgical History: Yes: CABG (3 vessel 2002), Stent (cardiac stents) - Alcohol/Substance Use Hx Alcohol Use: No - Smoking History Smoking history: Former smoker Have you smoked in the past 12 months: No - Social History Usual Living Arrangement: With Spouse Home Medications - Allergies Allergies/Adverse Reactions: Allergies Allergy/AdvReac Type Severity Reaction Status Date / Time Penicillins Allergy Verified 06/01/18 16:22 - Home Medications Home Medications: Ambulatory Orders Aspirin [ASA -] 81 mg PO DAILY 06/01/18 Meclizine HCl 12.5 mg PO DAILY 06/01/18 Metoprolol Succinate 50 mg PO DAILY 06/01/18 Dorzolamide/Timolol/Pf [Cosopt Pf Eye Drops] 1 each OS BID 06/03/18 Simvastatin 20 mg PO HS 06/05/18 Docusate Sodium [Colace -] 100 mg PO Q12H PRN capsule 06/09/18 Olanzapine [ZyPREXA -] 10 mg PO BID tablet 06/09/18 Polyethylene Glycol 3350 [Miralax 119 gm Btl -] 17 gm PO DAILY bottle 06/09/18 Lisinopril [Prinivil] 20 mg PO DAILY tablet 06/15/18 Tamsulosin HCl [Flomax -] 0.8 mg PO DAILY@0830 #0 cap.er.24h 06/15/18 Family Disease History - Family Disease History Family History: Unable to Obtain Review of Systems - Review of Systems Constitutional: denies: Chills, Fever Eyes: reports: No Symptoms HENT: reports: No Symptoms Neck: reports: No Symptoms Cardiovascular: reports: No Symptoms Respiratory: reports: No Symptoms Gastrointestinal: reports: No Symptoms Physical Exam Vital Signs: Vital Signs Temperature 98.1 F 07/02/18 10:00 Pulse Rate 87 07/02/18 10:00 Respiratory Rate 18 07/02/18 10:00 Blood Pressure 136/84 07/02/18 10:00 O2 Sat by Pulse Oximetry (%) 99 07/01/18 19:00 Constitutional: Yes: No Distress, Calm, Thin Eyes: Yes: Conjunctiva Clear HENT: Yes: Atraumatic, Normocephalic Neck: Yes: Supple, Trachea Midline Cardiovascular: Yes: Regular Rate and Rhythm Respiratory: Yes: Regular, CTA Bilaterally Gastrointestinal: Yes: Normal Bowel Sounds, Soft ...Rectal Exam: Yes: Deferred Renal/: Yes: Cantu Present, Hematuria Extremities: Yes: WNL Edema: No Neurological: Yes: Alert Labs: CBC, BMP 07/02/18 05:30 07/01/18 09:47 Imaging - Results Ultrasound: Report Reviewed (enlarged prostate, large PVR) Problem List - Problems (1) UTI (urinary tract infection) Code(s): N39.0 - URINARY TRACT INFECTION, SITE NOT SPECIFIED (2) Hematuria Code(s): R31.9 - HEMATURIA, UNSPECIFIED (3) Urinary retention due to benign prostatic hyperplasia Code(s): N40.1 - BENIGN PROSTATIC HYPERPLASIA WITH LOWER URINARY TRACT SYMP; R33.8 - OTHER RETENTION OF URINE (4) Penicillin allergy Code(s): Z88.0 - ALLERGY STATUS TO PENICILLIN Assessment/Plan would treat with vancomycin if TURP is planned f/u culture results in am pen allergy-unable to ascertain nature of allergy history CAD
[2018-07-02] MEDS ORDERED: HALOPERIDOL LACTATE 5 MG/ML IM ONE (16:28)
[2018-07-02] MEDS ORDERED: LORazepam 2 MG/ML SDV VIAL IVPUSH ONE (16:30)
[2018-07-02] MEDS: ATORVASTATIN CA 10 MG TABLET (FP) PO SCH (22:04)
[2018-07-03] MEDS: HEPARIN NA (PORCINE) 5,000 UNITS/ML 1ML VIAL SQ SCH ×3 (06:44→21:05)
[2018-07-03] MEDS: MECLIZINE HCL 12.5 MG TABLET PO SCH (10:58)
[2018-07-03] MEDS: LISINOPRIL 20 MG TABLET (FP) PO SCH (10:58)
[2018-07-03] MEDS: TAMSULOSIN HCL 0.4 MG CAP PO SCH (10:58)
[2018-07-03] MEDS: ASPIRIN COATED 81 MG TABLET.EC PO SCH (10:58)
[2018-07-03] MEDS: VANCOMYCIN 1 GRAM (PRE-DOCKED) 1,000 MG/250 ML BAG IVPB SCH (10:58)
[2018-07-03] MEDS: OLANZapine 10 MG TABLET PO SCH ×2 (10:58→21:06)
[2018-07-03] MEDS: POLYETHYLENE GLYCOL 3350 119 GM BTL PO SCH (11:00)
[2018-07-03] MEDS ORDERED: PT OWN MED DRAWER 7, Y5N ONE ×2 (12:06→20:38)
[2018-07-03] MEDS: [UNRECOGNIZED DRUG - OTHER] OS SCH ×2 (12:08→21:07)
[2018-07-03] MEDS: TIMOLOL 0.5% OS SCH ×2 (12:08→21:07)
[2018-07-03] MEDS: DORZOLAMIDE OS SCH ×2 (12:08→21:07)
--- NOTE | 2018-07-03 12:58 | PN ---
Physical Exam: SUBJECTIVE: Patient seen and examined at bedside; patient was agitated and combative overnight - however this mornign he remains calm and denies any pain; his cantu is draining yellow urine with no more hematuria seen OBJECTIVE: Vital Signs Period Temp Pulse Resp BP Sys/Schneider Pulse Ox Last 24 Hr 98.1 F-98.8 F 75-96 18-18 122-135/74-75 95 GENERAL: The patient is awake, alert, NAD. EYES: PEERLA; EOMI; no scleal icterus. NECK: no JVD; no lymphadenopathy. LUNGS:CTA B/L; no rales, rhonchi or wheezing HEART: Regular rate and rhythm, S1, S2 without murmur, rub or gallop. ABDOMEN: Soft, nontender, nondistended, normoactive bowel sounds, no suprapubic tenderness EXTREMITIES: 2+ pulses, warm, well-perfused, no edema. PSYCH: Normal mood, normal affect. SKIN: Warm, dry, normal turgor, no rashes or lesions noted Active Medications Generic Name Dose Route Start Last Admin Trade Name Jasonq PRN Reason Stop Dose Admin Aspirin 81 mg 07/03/18 10:00 07/03/18 10:58 Ecotrin - PO 81 mg DAILY THIAGO Administration Atorvastatin Calcium 10 mg 07/01/18 22:00 07/02/18 22:04 Lipitor - PO 10 mg HS THIAGO Administration Docusate Sodium 100 mg 07/01/18 03:26 Colace - PO Q12H PRN CONSTIPATION Heparin Sodium (Porcine) 5,000 unit 07/02/18 14:00 07/03/18 06:44 Heparin - SQ 5,000 unit TID THIAGO Administration Vancomycin HCl 1,000 mg in 250 mls @ 166.667 mls/hr 07/03/18 10:00 07/03/18 10:58 Vancomycin (Pre-Docked) IVPB 166.667 mls/hr Q24H THIAGO Administration Protocol Lisinopril 20 mg 07/01/18 10:00 07/03/18 10:58 Prinivil PO 20 mg DAILY THIAGO Administration Meclizine HCl 12.5 mg 07/01/18 10:00 07/03/18 10:58 Antivert - PO 12.5 mg DAILY THIAGO Administration Metoprolol Succinate 50 mg 07/01/18 10:00 07/03/18 10:58 Toprol Xl - PO 50 mg DAILY THIAGO Administration Non-Formulary Med [ 1 each 07/01/18 22:00 07/03/18 12:08 Cosopt Pf ( OS 1 each Dorzolamide 2% / BID THIAGO Administration Timolol 0.5%) Opth Ellen] Olanzapine 10 mg 07/01/18 10:00 07/03/18 10:58 Zyprexa - PO 10 mg BID THIAGO Administration Polyethylene Glycol 17 gm 07/01/18 10:00 07/03/18 11:00 Miralax (For Daily Use) - PO Not Given DAILY THIAGO Tamsulosin HCl 0.8 mg 07/01/18 08:30 07/03/18 10:58 Flomax - PO 0.8 mg DAILY@0830 THIAGO Administration ASSESSMENT/PLAN: 83 y.o male with PMH of CAD s/p CABG (2002), HTN, diverticulitis, recent hospitalization for UTI and urinary retention presents from [facility] after pulling out his cantu catheter and subsequently developed hematuria #UTI prelim cx growing coag negative staph; previous cx was staph schleiferi spp coagulans -patient on day 3 of vanco -vanc trough tomorrow AM -awaiting on cultures and sensitivities -ID on board #Hematuria has now since resolved -will touch base with urology about inpatient v. outpatient TURP #CAD c/w ASA, lipitor, metoprolol #HTN c/w toprol and lisinopril DVT PPX: heparin SQ Problem List - Problems (1) Hematuria Code(s): R31.9 - HEMATURIA, UNSPECIFIED (2) UTI (urinary tract infection) Code(s): N39.0 - URINARY TRACT INFECTION, SITE NOT SPECIFIED (3) Urinary retention due to benign prostatic hyperplasia Code(s): N40.1 - BENIGN PROSTATIC HYPERPLASIA WITH LOWER URINARY TRACT SYMP; R33.8 - OTHER RETENTION OF URINE Visit type - Emergency Visit Emergency Visit: Yes ED Registration Date: 07/02/18 Care time: The patient presented to the Emergency Department on the above date and was hospitalized for further evaluation of their emergent condition. - New Patient This patient is new to me today: Yes Date on this admission: 07/03/18 - Critical Care Critical Care patient: No
--- NOTE | 2018-07-03 14:45 | PN ---
Teaching Attending Note Name of Resident: Renata Vazquez ATTENDING PHYSICIAN STATEMENT I saw and evaluated the patient. I reviewed the resident's note and discussed the case with the resident. I agree with the resident's findings and plan as documented. SUBJECTIVE:asymptomatic. denies abdominal pain OBJECTIVE: Last Vital Signs Temp Pulse Resp BP Pulse Ox 98.8 F 75 18 135/75 95 07/03/18 06:00 07/03/18 06:00 07/03/18 06:00 07/03/18 06:00 07/02/18 21:00 General NAD, confused. does not answer all questions appropriately Abdomen soft NT/ND no suprapubic distention/tenderness ASSESSMENT AND PLAN: 83yo M wtih [facility] CAD s/p CABG (2002), HTN, diverticulitis, with recent hospitalization with treatment for UTI and urinary retention where pt was discharged with cantu in place and levaquin x5 days. Pt was sent from [facility] [place] due to pulling out his cantu catheter and developed hematuria. Reports no difficulty urinating since then 1. Hematuria- traumatic. bladder u/s + for retention. cantu reinserted. now draining clear. will need TURP, likely after UTI is treated. will confirm with urology. Hgb stable. urology on board. 2. UTI- showing staph which was MDR in the past. will cont with vanco. check trough tomorrow prior to 4th dose. ID was consulted.await C&S. PCN allergy noted 3. CAD s/p CABG- on asa. cont home medication 4. HTN- controlled. cont home medication 5. DVT ppx- hep sq
[2018-07-03] MEDS: ATORVASTATIN CA 10 MG TABLET (FP) PO SCH (21:04)
[2018-07-04] MEDS: HEPARIN NA (PORCINE) 5,000 UNITS/ML 1ML VIAL SQ SCH ×2 (05:53→14:03)
[2018-07-04 06:43] LABS: HEMATOCRIT 35.3 % (35.4-49); HEMOGLOBIN 12.3 GM/dL (11.7-16.9); MCH 30.5 pg (25.7-33.7); MCHC 34.8 g/dl (32.0-35.9); MEAN CELL VOLUME 87.7 fl (80-96); MEAN PLT VOLUME 7.5 fl (7.5-11.1); PLATELET COUNT 208 K/MM3 (134-434); RBC 4.02 M/mm3 (4.00-5.60); RDW 14.5 % (11.9-15.9); WHITE BLOOD COUNT 5.9 K/mm3 (4.0-10.0)
--- NOTE | 2018-07-04 07:42 | PN ---
Physical Exam: SUBJECTIVE: Patient seen and examined at bedside- no acute events overnight patient needed to be put in a sachi overnight; his cantu is draining macie urine - he denies any pain OBJECTIVE: Vital Signs Period Temp Pulse Resp BP Sys/Schneider Pulse Ox Last 24 Hr 97.7 F-98.4 F 79-92 18-20 110-140/66-85 95-98 GENERAL: The patient is awake, alert, and fully oriented, in no acute distress. EYES: PEERLA: EOMI no sclerla icterus NECK:no JVD: no lymphadenopathy LUNGS:CTA B/L: no rales, rhonchi or wheezing. HEART: Regular rate and rhythm, S1, S2 without murmur, rub or gallop. ABDOMEN: Soft, nontender, nondistended, normoactive bowel sounds, no guarding, no rebound, no hepatosplenomegaly, no masses. EXTREMITIES: 2+ pulses, warm, well-perfused, no edema. PSYCH: Normal mood, normal affect. SKIN: Warm, dry, normal turgor, no rashes or lesions noted Active Medications Generic Name Dose Route Start Last Admin Trade Name Freq PRN Reason Stop Dose Admin Aspirin 81 mg 07/03/18 10:00 07/03/18 10:58 Ecotrin - PO 81 mg DAILY THIAGO Administration Atorvastatin Calcium 10 mg 07/01/18 22:00 07/03/18 21:04 Lipitor - PO 10 mg HS THIAGO Administration Docusate Sodium 100 mg 07/01/18 03:26 Colace - PO Q12H PRN CONSTIPATION Heparin Sodium (Porcine) 5,000 unit 07/02/18 14:00 07/04/18 05:53 Heparin - SQ 5,000 unit TID THIAGO Administration Vancomycin HCl 1,000 mg in 250 mls @ 166.667 mls/hr 07/03/18 10:00 07/03/18 10:58 Vancomycin (Pre-Docked) IVPB 166.667 mls/hr Q24H THIAGO Administration Protocol Lisinopril 20 mg 07/01/18 10:00 07/03/18 10:58 Prinivil PO 20 mg DAILY THIAGO Administration Meclizine HCl 12.5 mg 07/01/18 10:00 07/03/18 10:58 Antivert - PO 12.5 mg DAILY THIAGO Administration Metoprolol Succinate 50 mg 07/01/18 10:00 07/03/18 10:58 Toprol Xl - PO 50 mg DAILY THIAGO Administration Non-Formulary Med [ 1 each 07/01/18 22:00 07/03/18 21:07 Cosopt Pf ( OS 1 each Dorzolamide 2% / BID THIAGO Administration Timolol 0.5%) Opth Ellen] Olanzapine 10 mg 07/01/18 10:00 07/03/18 21:06 Zyprexa - PO 10 mg BID THIAGO Administration Polyethylene Glycol 17 gm 07/01/18 10:00 07/03/18 11:00 Miralax (For Daily Use) - PO Not Given DAILY THIAGO Tamsulosin HCl 0.8 mg 07/01/18 08:30 07/03/18 10:58 Flomax - PO 0.8 mg DAILY@0830 THIAGO Administration ASSESSMENT/PLAN: 83 y.o male with PMH of CAD s/p CABG (2002), HTN, diverticulitis, recent hospitalization for UTI and urinary retention presents from [facility] after pulling out his cantu catheter and subsequently developed hematuria #UTI prelim cx growing coag negative staph; previous cx was staph schleiferi spp coagulans -patient on day 4 of vanco; will d/c vanco -will continue with Ceftin 500 mg BID -ID on board #Hematuria has now since resolved -will touch base with urology about inpatient v. outpatient TURP #CAD c/w ASA, lipitor, metoprolol #HTN c/w toprol and lisinopril DVT PPX: heparin SQ d/c pending auth Problem List - Problems (1) Hematuria Code(s): R31.9 - HEMATURIA, UNSPECIFIED (2) UTI (urinary tract infection) Code(s): N39.0 - URINARY TRACT INFECTION, SITE NOT SPECIFIED (3) Urinary retention due to benign prostatic hyperplasia Code(s): N40.1 - BENIGN PROSTATIC HYPERPLASIA WITH LOWER URINARY TRACT SYMP; R33.8 - OTHER RETENTION OF URINE Visit type - Emergency Visit Emergency Visit: Yes ED Registration Date: 07/02/18 Care time: The patient presented to the Emergency Department on the above date and was hospitalized for further evaluation of their emergent condition. - New Patient This patient is new to me today: No - Critical Care Critical Care patient: No
[2018-07-04] MEDS: ASPIRIN COATED 81 MG TABLET.EC PO SCH (10:58)
[2018-07-04] MEDS: TIMOLOL 0.5% OS SCH (10:58)
[2018-07-04] MEDS: TAMSULOSIN HCL 0.4 MG CAP PO SCH (10:58)
[2018-07-04] MEDS: DORZOLAMIDE OS SCH (10:58)
[2018-07-04] MEDS: LISINOPRIL 20 MG TABLET (FP) PO SCH (10:58)
[2018-07-04] MEDS: [UNRECOGNIZED DRUG - OTHER] OS SCH (10:58)
[2018-07-04] MEDS: MECLIZINE HCL 12.5 MG TABLET PO SCH (10:58)
[2018-07-04] MEDS: OLANZapine 10 MG TABLET PO SCH (10:58)
--- NOTE | 2018-07-04 11:23 | PN ---
Progress Note (short form) - Note Progress Note: no complaints Vital Signs Period Temp Pulse Resp BP Sys/Schneider Pulse Ox Last 24 Hr 97.7 F-98.4 F 79-92 18-20 110-140/66-85 95 cor-rrr lungs clear abd soft,nt ext no edema cantu with clear urine CBC, BMP 07/04/18 05:40 07/01/18 09:47 Microbiology 07/01/18 01:11 Urine - Urine Clean Catch Urine Culture - Final Staphylococcus Haemolyticus a/p day #4 vancomycin can switch to ceftin 500 bid- give first dose this am here given history of pen allergy (unknown s/e) to finish 10 days antiibotic with outpt f/u with urology medical service Problem List - Problems (1) UTI (urinary tract infection) Code(s): N39.0 - URINARY TRACT INFECTION, SITE NOT SPECIFIED (2) Hematuria Code(s): R31.9 - HEMATURIA, UNSPECIFIED (3) Urinary retention due to benign prostatic hyperplasia Code(s): N40.1 - BENIGN PROSTATIC HYPERPLASIA WITH LOWER URINARY TRACT SYMP; R33.8 - OTHER RETENTION OF URINE (4) Penicillin allergy Code(s): Z88.0 - ALLERGY STATUS TO PENICILLIN
[2018-07-04] MEDS: VANCOMYCIN 1 GRAM (PRE-DOCKED) 1,000 MG/250 ML BAG IVPB SCH (11:36)
[2018-07-04] MEDS ORDERED: CEFUROXIME AXETIL 500 MG TABLET PO ONE ×2 (11:53)
[2018-07-04] MEDS: POLYETHYLENE GLYCOL 3350 119 GM BTL PO SCH (14:03)
--- NOTE | 2018-07-04 14:48 | PN ---
Teaching Attending Note Name of Resident: Renata Vazquez ATTENDING PHYSICIAN STATEMENT I saw and evaluated the patient. I reviewed the resident's note and discussed the case with the resident. I agree with the resident's findings and plan as documented. SUBJECTIVE: No complaints. Denies abdominal pain/fever/chills. OBJECTIVE: Afebrile, Hemodynamically Stable. Last Vital Signs Temp Pulse Resp BP Pulse Ox 97.7 F 79 18 135/68 95 07/04/18 06:00 07/04/18 06:00 07/04/18 06:00 07/04/18 06:00 07/03/18 21:00 HEENT - Atraumatic, Normocephalic. Neuro - AAO x 1. Moving all 4 extremities. Heart - S1, S2, SM Lungs - clear to auscultation Abdomen -Soft, non-tender. Bowel Sounds normal. - cantu in situ, urine macie, no hematuria Extremities - no edema, no calf tenderness Laboratory Results - last 24 hr 07/04/18 07/04/18 05:40 10:10 WBC 5.9 RBC 4.02 Hgb 12.3 Hct 35.3 L MCV 87.7 MCH 30.5 MCHC 34.8 RDW 14.5 Plt Count 208 MPV 7.5 Vancomycin Pre-Dose 7.2 L Current Medications Generic Name Dose Route Start Last Admin Trade Name Freq PRN Reason Stop Dose Admin Aspirin 81 mg 07/03/18 10:00 07/04/18 10:58 Ecotrin - PO 81 mg DAILY THIAGO Administration Atorvastatin Calcium 10 mg 07/01/18 22:00 07/03/18 21:04 Lipitor - PO 10 mg HS THIAGO Administration Docusate Sodium 100 mg 07/01/18 03:26 07/04/18 10:58 Colace - PO 100 mg Q12H PRN Administration CONSTIPATION Heparin Sodium (Porcine) 5,000 unit 07/02/18 14:00 07/04/18 14:03 Heparin - SQ 5,000 unit TID THIAGO Administration Lisinopril 20 mg 07/01/18 10:00 07/04/18 10:58 Prinivil PO 20 mg DAILY THIAGO Administration Meclizine HCl 12.5 mg 07/01/18 10:00 07/04/18 10:58 Antivert - PO 12.5 mg DAILY THIAGO Administration Metoprolol Succinate 50 mg 07/01/18 10:00 07/04/18 10:58 Toprol Xl - PO 50 mg DAILY THIAGO Administration Non-Formulary Med [ 1 each 07/01/18 22:00 07/04/18 10:58 Cosopt Pf ( OS 1 each Dorzolamide 2% / BID THIAGO Administration Timolol 0.5%) Opth Lelen] Olanzapine 10 mg 07/01/18 10:00 07/04/18 10:58 Zyprexa - PO 10 mg BID THIAGO Administration Polyethylene Glycol 17 gm 07/01/18 10:00 07/04/18 14:03 Miralax (For Daily Use) - PO 17 gm DAILY THIAGO Administration Tamsulosin HCl 0.8 mg 07/01/18 08:30 07/04/18 10:58 Flomax - PO 0.8 mg DAILY@0830 THIAGO Administration Home Medications Medication Instructions Recorded Aspirin [ASA -] 81 mg PO DAILY 06/01/18 Meclizine HCl 12.5 mg PO DAILY 06/01/18 Metoprolol Succinate 50 mg PO DAILY 06/01/18 Dorzolamide/Timolol/Pf [Cosopt Pf 1 each OS BID 06/03/18 Eye Drops] Simvastatin 20 mg PO HS 06/05/18 Docusate Sodium [Colace -] 100 mg PO Q12H PRN capsule 06/09/18 Olanzapine [ZyPREXA -] 10 mg PO BID tablet 06/09/18 Polyethylene Glycol 3350 [Miralax 17 gm PO DAILY bottle 06/09/18 119 gm Btl -] Lisinopril [Prinivil] 20 mg PO DAILY tablet 06/15/18 Tamsulosin HCl [Flomax -] 0.8 mg PO DAILY@0830 #0 cap.er.24h 06/15/18 Cefuroxime Axetil [Ceftin -] 500 mg PO Q12H #20 tablet 07/04/18 ASSESSMENT AND PLAN: 83 year old male with history of Dementia, CAD s/p CABG (2002), HTN, diverticulitis, with recent hospitalization for treatment for UTI and urinary retention, discharged to [facility], now re-presents with hematuria after traumatic cantu removal by patient. 1. Hematuria s/p traumatic self de-catheterization - evaluated by Dr. Kermit Landon. Cantu re-inserted. Hematuria resolved. Hx of Urinary retention - continue Flomax. Discussed with Dr. Kermit Landon - for discharge with cantu in situ and outpatient Urology follow up and plan for possible TURP. H/H stable. 2. UTI - Urine Cx positive for Staph hemolyticus. On Day 4 IV Vancomycin. Given ID and Sensitivity, will discharge on Ceftin as per ID recommendations. PCN Allergy. Afebrile, Hemodynamically Stable. Medically stable for discharge on Ceftin. 3. CAD s/p CABG - Continue Aspirin, BB, PATIENCE-I, Statin. 4. HTN - controlled on Toprol and Lisinopril. 5. Dementia with behavioral disturbance - continue Olanzapine. DVT Px - Heparin SQ
--- NOTE | 2018-07-04 15:25 | DS ---
Physical Exam: SUBJECTIVE: Patient seen and examined at bedside- no acute events overnight patient denies having any pain OBJECTIVE: Vital Signs Period Temp Pulse Resp BP Sys/Schneider Pulse Ox Last 24 Hr 97.7 F-98.4 F 79-92 18-20 135-140/68-85 95 PHYSICAL EXAM GENERAL: The patient is awake, alert, NAD EYES: PEERLA: EOMI no scleral icterus NECK: no JVD; no lymphadenopathy LUNGS: CTA B/L; no rales, rhonchi or wheezing HEART: Regular rate and rhythm, S1, S2 without murmur, rub or gallop. ABDOMEN: Soft, nontender, nondistended, normoactive bowel sounds, no guarding, no rebound, no hepatosplenomegaly, no masses.; cantu in place draining macie urine EXTREMITIES: 2+ pulses, warm, well-perfused, no edema. PSYCH: Normal mood, normal affect. SKIN: Warm, dry, normal turgor, no rashes or lesions noted. LABS Laboratory Results - last 24 hr 07/04/18 07/04/18 05:40 10:10 WBC 5.9 RBC 4.02 Hgb 12.3 Hct 35.3 L MCV 87.7 MCH 30.5 MCHC 34.8 RDW 14.5 Plt Count 208 MPV 7.5 Vancomycin Pre-Dose 7.2 L HOSPITAL COURSE: Date of Admission:07/02/18 83yo M from [facility] today after traumatic cantu removal. Pt and at bedside report pt had his cantu snagged on his bedpost which ended up forcibly removing it. Pt began to have bright red blood from his penis for the next 3 days with notable clots. Pt reports he takes ASA 81mg qdaily for cardiac reasons and has been taking it daily. Pt's reports the pt's blood has been decreasing over the past few days. He denies any dysuria, hesitancy, retention at this point. Of note pt was previously here for combative behavior with questionable owning. During his stay he was found to have UTI and urinary retention for which the cantu was placed and he was treated with Levaquin. Upon his discharge he failed his TOV and was to see Dr. Rutherford on an outpatient basis for cantu assessment and possible removal at that time, however he was never able to go. His Levaquin dose was completed appropriately and he has not taken any antibiotic for the past 7-[address] jacobo kearns came to change patients cantu catheter; patient was started on vanco and completed 4 days of vanco- then was discharged back to the senior living with another 10 days of ceftin- patient to follow up with dr. jacobo kearns in one week a Date of Discharge: 07/04/18 Minutes to complete discharge: 35 Discharge Summary Reason For Visit: ACUTE INFECTIVE CYSTITIS HEMATURIA Current Active Problems Acute infective cystitis (Acute) Hematuria (Acute) Penicillin allergy (Acute) UTI (urinary tract infection) (Acute) Urinary retention due to benign prostatic hyperplasia (Acute) Condition: Fair - Instructions Diet, Activity, Other Instructions: You were sent to the emergency room from the nursing do to problems with your cantu catheter and some urinary retention. You were found to have a urinary tract infection for which we have been treating you with antibiotics for. Please resume all of your home medications in addition: please take the antibiotic Ceftin 500mg twice a day for a total of 10 days (07/05-07/14/18) Please follow up with your primary care physician within one week Please follow up with the urologist, Dr. Rutherford, within one week to change the cantu and for further evaluation We will be sending you back with the cantu catheter that you will need to keep in until you see Dr. Rutherford *if you begin to experience chest pains, shortness of breath, pain on urination , blood in urine, nausea/vomiting please return to the emergency room immediately Referrals: Han Rutherford MD [Staff Physician] - 1 Week Disposition: RETIREMENT FACILITY - Home Medications Comprehensive Discharge Medication List: Ambulatory Orders Aspirin [ASA -] 81 mg PO DAILY 06/01/18 Meclizine HCl 12.5 mg PO DAILY 06/01/18 Metoprolol Succinate 50 mg PO DAILY 06/01/18 Dorzolamide/Timolol/Pf [Cosopt Pf Eye Drops] 1 each OS BID 06/03/18 Simvastatin 20 mg PO HS 06/05/18 Docusate Sodium [Colace -] 100 mg PO Q12H PRN capsule 06/09/18 Olanzapine [ZyPREXA -] 10 mg PO BID tablet 06/09/18 Polyethylene Glycol 3350 [Miralax 119 gm Btl -] 17 gm PO DAILY bottle 06/09/18 Lisinopril [Prinivil] 20 mg PO DAILY tablet 06/15/18 Tamsulosin HCl [Flomax -] 0.8 mg PO DAILY@0830 #0 cap.er.24h 06/15/18 Cefuroxime Axetil [Ceftin -] 500 mg PO Q12H #20 tablet 07/04/18 Problem List - Problems (1) Hematuria Code(s): R31.9 - HEMATURIA, UNSPECIFIED (2) UTI (urinary tract infection) Code(s): N39.0 - URINARY TRACT INFECTION, SITE NOT SPECIFIED (3) Urinary retention due to benign prostatic hyperplasia Code(s): N40.1 - BENIGN PROSTATIC HYPERPLASIA WITH LOWER URINARY TRACT SYMP; R33.8 - OTHER RETENTION OF URINE This patient is new to me today: No Emergency Visit: Yes ED Registration Date: 07/02/18 Care time: The patient presented to the Emergency Department on the above date and was hospitalized for further evaluation of their emergent condition. Critical Care patient: No - Discharge Referral Referred to [facility] No
[2018-07-04 15:49] VITALS: BP 130/72; PULSE 83; TEMP 97.3
== END 2018-07-04 19:52 | DRG 699 ==
LOC: JER 20:02 → JERBED 07-01 03:25 → J8W 07-01 05:38 → OBSVTOIN 07-02 11:21 → J8W 07-03 19:49
PROVIDERS: ADMIT Internal Medicine
DX: T83.098A Other mechanical complication of other urinary catheter, initial encounter (principal); N39.0 Urinary tract infection, site not specified; F03.91 Unspecified dementia, unspecified severity, with behavioral disturbance; I25.10 Atherosclerotic heart disease of native coronary artery without angina pectoris; I25.2 Old myocardial infarction; I10 Essential (primary) hypertension; R33.9 Retention of urine, unspecified; Z95.1 Presence of aortocoronary bypass graft; N40.1 Benign prostatic hyperplasia with lower urinary tract symptoms; R33.8 Other retention of urine; Y84.8 Other medical procedures as the cause of abnormal reaction of the patient, or of later complication, without mention of misadventure at the time of the procedure; Z88.0 Allergy status to penicillin; B95.8 Unspecified staphylococcus as the cause of diseases classified elsewhere
CPT/HCPCS: 36415; 76775-TC; 76856-TC; 80048; 80053; 81003; 84100; 85025; 85027; 85610; 85730; 87086; 87186; 93005; 93010; 97116-GP; 97162-GP; 99283-25; G0378; G0480; J1644; J7030